=== PATIENT | female | born 1945 | race Caucasian/White ===

== ENCOUNTER 2016-03-23 20:11 | Inpatient (IN) | payer MEDICARE, OTHER ==
[~2016-03-23] VITALS: Ht 147.3 cm; Wt 68.0 kg
[2016-03-23] MEDS: ADVAIR DISKUS 250/50 INH PWD INH SCH (02:13)
[~2016-03-23 20:11] MED LIST changes: -ADV250INH INH; -AMLO10TA2 PO; -CINA30TA PO
[2016-03-23] MEDS ORDERED: FAMOTIDINE 20 MG TAB PO SCH (21:00)
[2016-03-23] MEDS ORDERED: IPRATROPIUM 0.5MG/ALBUTEROL 2.5MG INH SOL UD 3ML (DUONEB)(J7620) As Ordered ONE (21:11)
[2016-03-23 21:22] LABS: BASO % 0.6 % (0.0-1.0); EOS # 0.1 K/mm3 (0.0-0.50); EOS % 1.6 % (0.0-3.0); LARGE UNSTAINED CELL # 0.3 K/mm3 (0.0-0.4); LARGE UNSTAINED CELL % 4.3 % (0.0-4.0); LYMPH # 1.2 K/mm3 (1.5-4.5); LYMPH % 19.1 % (24.0-44.0); MEAN CORPUSCULAR HEMOGLOBIN 33.5 pg (27.0-33.0); MEAN CORPUSCULAR HGB CONC 32.6 g/dl (32.0-36.5); MEAN CORPUSCULAR VOLUME 102.6 fl (80.0-96.0); MONO # 0.4 K/mm3 (0.0-0.8); MONO % 7.1 % (0.0-5.0); NEUTROPHILS # 4.1 K/mm3 (1.8-7.7); NEUTROPHILS % 67.3 % (36.0-66.0); PLATELET COUNT, AUTOMATED 212 k/mm3 (150-450); RED CELL DISTRIBUTION WIDTH 12.3 % (11.5-14.5); WHITE BLOOD COUNT 6.1 K/mm3 (4.0-10.0)
[2016-03-23 21:47] LABS: CALCIUM LEVEL 9.1 MG/DL (8.8-10.2); CREATININE FOR GFR 1.86 MG/DL (0.55-1.02); GLOMERULAR FILTRATION RATE 28.4 (>39); POTASSIUM SERUM 3.7 MEQ/L (3.5-5.1)
--- NOTE | 2016-03-23 22:40 | REPUSA ---
CLINICAL HISTORY: Shortness of breath. TECHNIQUE: CT chest without contrast. COMPARISON: No pertinent prior studies are available at this time. CT CHEST WITHOUT CONTRAST: Lungs: There is a 5 mm nodule in the superior aspect of the right lower lobe on axial image 46. There is a larger conglomerate nodule measuring approximately 10 mm in the right lower lobe on axial image 51, which has No infiltrate, masses or effusion. Heart: Normal size. No significant effusion. Aorta: 4.8 cm aneurysm of the ascending aorta. 2.8 cm aneurysm of the left subclavian artery. Mediastinum and marisol: No significant lymphadenopathy. Bony thorax: No acute findings. S-shaped thoracolumbar scoliosis. Stomach: Moderate hiatal hernia noted. Limited upper abdomen: No acute findings. IMPRESSION: 1. Nodular infiltrates in the superior segment of the right lower lobe. It is uncertain if this repre sents bronchopneumonic infiltrate or soft tissue nodules. Recommend follow-up CT at 3, 9 and 24 month s, to establish two-year stability or resolution. 2. Mild groundglass infiltrates in the right middle and left lower lobes. 3. Aneurysms of the ascending aorta and left subclavian artery. The acuity of these aneurysms is unce rtain without prior studies for comparison, though the presence of peripheral mural calcification sug gests nonacute character. Dissection is not excluded without contrast. 4. Moderate hiatal hernia.
[2016-03-23] MEDS ORDERED: cefTRIAXone SOD 1 GM VIAL (J0696) As Ordered ONE (23:00)
[2016-03-23] MEDS ORDERED: AZITHROMYCIN 250 MG TAB As Ordered ONE (23:01)
--- NOTE | 2016-03-23 23:08 | ECGEPIP ---
Stationary ECG Study [facility] - ED Test Date: 2016-03-23 Pat Name: MARISELA LAFLEUR Department: Room: - Gender: F Furnace Operator: ANGELA : 1945 Requested By: KAYLEEN Lee Order Number: [id number] Reading MD: Virgil Hernandez Measurements Intervals [place] Rate: 76 P: 29 OR: 137 QRS: 7 QRSD: 102 T: 15 QT: 398 QTc: 450 Interpretive Statements SINUS RHYTHM POSSIBLE RIGHT VENTRICULAR CONDUCTION DELAY NO PRIORS Electronically Signed On 03-23-2016 23:07:39 EST by Virgil Hernandez
[2016-03-23] MEDS ORDERED: AMLO10TA2 PO (23:19)
[2016-03-23] MEDS ORDERED: ADV250INH INH (23:19)
[2016-03-23] MEDS ORDERED: CINA30TA PO (23:20)
[2016-03-23] MEDS ORDERED: CYCLOBENZAPRINE 10 MG TAB PO PRN (23:45)
[2016-03-24] MEDS ORDERED: IPRATROPIUM 0.5MG/ALBUTEROL 2.5MG INH SOL UD 3ML (DUONEB)(J7620) NEB PRN (00:30)
--- NOTE | 2016-03-24 01:14 | EDDOCDS ---
Nurse's Notes [facility] Name: Marisela Vicente Age: 70 yrs Sex: Female : 1945 Arrival Date: 03/23/2016 Time: 20:11 Bed 17 Private MD: Eladia Connors E Diagnosis: Other pneumonia, unspecified organism Presentation: 03/23 20:16 Presenting complaint: Patient states: SOB for the past week. Pt reports a productive dsf cough. Pt was at urgent care was sent over here because her X-ray showed fluid on the lungs. Adult Sepsis Screening: The patient does not have new or worsening altered mentation. Patient's respiratory rate is less than 22. Systolic blood pressure is greater than 100. Patient has a qSOFA score of 0- Negative Sepsis Screen. Suicide/Homicide risk assessment- the patient denies having any suicidal and/or homicidal ideations and does not present with any other emotional, behavioral or mental health complaints. 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 Transition of care: Patient was received from [facility]. 20:16 Acuity: RAUL Level 3 dsf 20:16 Method Of Arrival: Wheelchair dsf Triage Assessment: 20:21 General: Appears in no apparent distress, Behavior is appropriate for age. Pain: Denies dsf pain. Respiratory: Onset: The symptoms/episode began/occurred 1 week ago , Reports shortness of breath on exertion since 1 week ago cough that is productive, since 1 week ago. Derm: Skin is pink, warm & dry. Historical: - Allergies: Capoten; FISH PRODUCT DERIVATIVES; PENICILLINS; Vancomycin; - Home Meds: 1. Zantac 150 mg Oral tab 1 tab 2 times per day (Last dose: 03/23/2016 08:00) 2. Synthroid 50 mcg Oral tab 1 tab once daily (Last dose: 03/23/2016 08:00) 3. ropinirole 2 mg oral tab twice a day (Last dose: 03/23/2016 08:00) 4. Lipitor 20 mg Oral tab 1 tab once daily (Last dose: 03/22/2016) 5. citalopram 40 mg Oral tab 1 tab once daily (Last dose: 03/22/2016) 6. Advair Diskus 500-50 mcg/dose Inhl dsdv 1 puff 2 times per day (Last dose: 03/23/2016 08:00) 7. Albuterol Inhl 2 puffs as needed (Last dose: 03/23/2016 19:20) 8. Vicodin 5/325 mg Oral tab as needed (Last dose: Unknown) - PMHx: ESRD; GERD; Hypercholesterolemia; Hypertension; Hypothyroidism; Depression; Fibromyalgia; - PSHx: fistula right arm; PD cath; PD cath removed; Appendectomy; Hysterectomy; - Social history: Smoking status: Patient states former smoker of tobacco. No barriers to communication noted, The patient speaks fluent Bengali, Speaks appropriately for age. - Family history: Not pertinent. - : The pt / caregiver states he / she is not on anticoagulants. Home medication list is obtained from the patient. - Exposure Risk Screening:: None identified. Screenin:16 Screening information is obtained from the patient. Fall risk: No risks identified. lf1 Assistance ADL's: requires no assistance with activities of daily living. Abuse/DV Screen: The patient / caregiver reports he/she is: not in a situation that causes fear, pain or injury. home support is adequate. 03/24 00:22 Nutritional screening: No deficits noted. lf1 Assessment: 03/23 21:15 Adult Sepsis Screening: The patient does not have new or worsening altered mentation. lf1 Patient's respiratory rate is less than 22. Systolic blood pressure is greater than 100. Patient has a qSOFA score of 0- Negative Sepsis Screen. General: Appears in no apparent distress, Behavior is cooperative. Pain: Denies pain. Neurological: Level of Consciousness is awake, alert, Oriented to person, place, time. EENT: No deficits noted. Cardiovascular: Chest pain is denied. Respiratory: Airway is patent Respiratory effort is even, unlabored, Respiratory pattern is regular, Breath sounds are diminished bilaterally. Reports shortness of breath at rest. GI: Denies nausea, vomiting. Derm: Skin is normal. 22:30 General: Appears in no apparent distress, comfortable, Behavior is cooperative, lf1 pleasant. Pain: Denies pain. Neurological: Level of Consciousness is awake, alert, Oriented to person, place, time. Respiratory: Respiratory effort is even, unlabored, Reports shortness of breath cough that is non-productive. GI: Denies nausea, vomiting. 23:18 Adult Sepsis Screening: The patient does not have new or worsening altered mentation. lf1 Patient's respiratory rate is less than 22. Systolic blood pressure is greater than 100. Patient has a qSOFA score of 0- Negative Sepsis Screen. General: Appears in no apparent distress, comfortable, Behavior is cooperative. Pain: Location: buttocks Pain currently is 3 out of 10 on a pain scale. Neurological: Level of Consciousness is awake, alert, obeys commands, Oriented to person, place, time. EENT: No deficits noted. Cardiovascular: Chest pain is denied. Respiratory: Respiratory effort is even, unlabored. GI: Denies nausea, vomiting. Derm: Skin is normal. 03/24 00:22 General: Appears in no apparent distress, comfortable, Behavior is cooperative. Pain: lf1 Location: buttocks Pain currently is 3 out of 10 on a pain scale. Pain: Quality of pain is described as aching. Neurological: Level of Consciousness is awake, alert. Respiratory: Respiratory effort is even, unlabored, Reports shortness of breath cough that is the patient has mild shortness of breath. GI: Denies nausea, vomiting. : No deficits noted. Vital Signs: 03/23 20:13 BP 173 / 77; Pulse 89; Resp 20; Temp 100.4(O); Pulse Ox 95% on R/A; Weight 68.95 kg; elp Height 4 ft. 10 in. (147.32 cm); Pain 0/10; 20:33 BP 146 / 68 (auto/); lf1 20:35 Pulse Ox 91% ; lf1 21:15 Pulse 76 MON; Pulse Ox 98% ; lf1 21:32 Pulse 80 MON; Pulse Ox 98% ; lf1 21:33 BP 152 / 60 (auto/); lf1 22:13 Pulse 88 MON; Pulse Ox 97% ; lf1 22:14 BP 150 / 62 (auto/); lf1 22:34 BP 122 / 59 (auto/); lf1 22:34 Pulse 90 MON; Pulse Ox 97% ; lf1 23:04 BP 108 / 57 (auto/); lf1 23:04 Pulse 84 MON; Pulse Ox 97% ; lf1 23:16 Pulse 84 MON; Pulse Ox 97% on 2 lpm NC; Pain 4/10; lf1 23:34 BP 162 / 92 (auto/); lf1 23:34 Pulse 96 MON; Pulse Ox 96% ; lf1 03/24 00:04 BP 123 / 75 (auto/); lf1 00:04 Pulse 88 MON; Pulse Ox 95% ; lf1 00:22 Pulse 88 MON; Resp 20; Temp 100.0(TE); Pulse Ox 96% ; lf1 03/23 20:13 Body Mass Index 31.77 (68.95 kg, 147.32 cm) elp Vitals: 03/23 20:13 Log In Time: March 23, 2016 at 20:11. elp ED Course: 20:13 Patient visited by Yenifer Chau PCA. elp 20:13 Eladia Connors is Private Physician. elp 20:13 Patient moved to Waiting elp 20:14 Patient visited by Yenifer Chau PCA. elp 20:14 Patient moved to Pre RCE elp 20:17 Triage Initiated dsf 20:31 Kayleen Sanchez DO is Attending Physician. mm11 20:31 Patient visited by Kayleen Sanchez DO. mm11 20:31 Patient moved to 17 3 20:35 The patient / caregiver is instructed regarding the plan of care and ED course. lf1 20:35 Inserted saline lock: 20 gauge in left antecubital area and blood collected. The lf1 patient tolerated the procedure well. Labs drawn. (by ED staff). Sent per order to lab. Labs/Blood culture drawn. 20:39 Pt greeted and oriented to ED. Patient advised of names of staff involved in care, ml location of call [place], wait times and NPO status. Accompanied by Family Member, Patient has correct armband on for positive identification. Placed in gown. Bed in low position. Call light in reach. Side rails up X2. gambling monitor on. Pulse ox on. NIBP on. 20:40 Patient visited by [place] PCA. ml 20:46 Patient visited by Kayleen Sanchez DO. mm11 21:05 Patient visited by Ritesh Goodson PCA. kb5 21:05 EKG done. (by ED staff). Reviewed by Kayleen Sanchez DO. kb5 21:14 Troponin Sent. lf1 21:14 Cardiac Injury Profile Sent. lf1 21:14 CBC with Diff Sent. lf1 21:14 Basic Metabolic Profile Sent. lf1 21:15 B-Type Natiuretic Peptide Sent. lf1 21:15 -Blood Culture Sent. lf1 21:15 BLOOD CULTURES Sent. lf1 21:17 Patient visited by Janey Alan,BAILEY. lf1 22:02 Patient visited by Ritesh Goodson PCA. kb5 22:48 [facility] Payment Agreement was scanned into [employer] and attached to record. ks16 22:56 Patient visited by Kayleen Sanchez DO. mm11 22:59 CT Chest Without Contrast Returned. EDMS 23:04 Christine Bolton is Hospitalizing Provider. mm11 23:16 Patient visited by Janey Alan,RN. lf1 23:19 Patient visited by Janey Alan,BAILEY. lf1 23:42 EKG-ADULT Returned. EDMS 03/24 00:26 Patient visited by Janey Alan RN. lf1 Administered Medications: 03/23 21:15 Drug: Albuterol-Ipratropium 1 neb [ipratropium-albuterol 0.5 mg-3 mg(2.5 mg base)/3 mL lf2 nebulization soln (1 neb)] Route: Nebulizer; 21:20 Drug: Albuterol-Ipratropium 1 neb [ipratropium-albuterol 0.5 mg-3 mg(2.5 mg base)/3 mL lf2 nebulization soln (1 neb)] Route: Nebulizer; 21:25 Drug: Albuterol-Ipratropium 1 neb [ipratropium-albuterol 0.5 mg-3 mg(2.5 mg base)/3 mL lf2 nebulization soln (1 neb)] Route: Nebulizer; 23:11 Drug: cefTRIAXone 1 grams [ceftriaxone 1 gram solution for injection] Route: IVPB; lf1 Infused Over: 30 mins; Site: left antecubital; 23:45 Follow up: IV Status: Completed infusion; IV Intake: 50ml lf1 23:11 Drug: azithromycin 500 mg [azithromycin 250 mg tablet (2 tabs)] Route: PO; lf1 Intake: 23:45 IV: 50.00ml; Total: 50.00ml. lf1 RT: 21:15 Initial Med Neb Given as ordered Patient was instructed and evaluated on procedure lf2 Patient tolerated procedure well without adverse effect. O2 via nasal cannula \T\ 2L/min. Respiratory: Respiratory effort is even, unlabored, relaxed, Respiratory pattern is regular symmetrical, trachea is midline Breath sounds are coarse bilaterally. Breath sounds are diminished bilaterally. Reports shortness of breath on exertion cough that is productive. 21:22 Subsequent Med Neb Given as ordered Patient tolerated procedure well without adverse lf2 effect. Respiratory: Breath sounds are coarse bilaterally. Breath sounds are diminished bilaterally. 21:25 Subsequent Med Neb Given as ordered Patient tolerated procedure well without adverse lf2 effect. Respiratory: Breath sounds are coarse bilaterally. Order Results: Lab Order: B-Type Natiuretic Peptide; SPEC'M 03/23/16 21:05 Test: BRAIN NATRIURETIC PEPTIDE; Value: 171; Range: <100; Abnormal: Above high normal; Units: PG/ML; Status: F Lab Order: Basic Metabolic Profile; SPEC'M 03/23/16 21:05 Test: GLUCOSE, FASTING; Value: 129; Range: 83-110; Abnormal: Above high normal; Units: MG/DL; Status: F Test: BLOOD UREA NITROGEN; Value: 16; Range: 7-18; Units: MG/DL; Status: F Test: CREATININE FOR GFR; Value: 1.86; Range: 0.55-1.02; Abnormal: Above high normal; Units: MG/DL; Status: F Test: GLOMERULAR FILTRATION RATE; Value: 28.4; Range: >39; Abnormal: Below low normal; Status: F Test: SODIUM LEVEL; Value: 139; Range: 136-145; Units: MEQ/L; Status: F Test: POTASSIUM SERUM; Value: 3.7; Range: 3.5-5.1; Units: MEQ/L; Status: F Test: CHLORIDE LEVEL; Value: 100; Range: 98-107; Units: MEQ/L; Status: F Test: CARBON DIOXIDE LEVEL; Value: 32; Range: 21-32; Units: MEQ/L; Status: F Test: ANION GAP; Value: 7; Range: 8-16; Abnormal: Below low normal; Units: MEQ/L; Status: F Test: CALCIUM LEVEL; Value: 9.1; Range: 8.8-10.2; Units: MG/DL; Status: F Test Note: ; Units are mL/min/1.73 m2 Chronic Kidney Disease Staging per NKF: Stage I & II GFR >=60 Normal to Mildly Decreased Stage III GFR 30-59 Moderately Decreased Stage IV GFR 15-29 Severely Decreased Stage V GFR <15 Very Little GFR Left ESRD GFR <15 on VACUUM PAN TENDER Lab Order: CBC with Diff; SPEC'M 03/23/16 21:05 Test: WHITE BLOOD COUNT; Value: 6.1; Range: 4.0-10.0; Units: K/mm3; Status: F Test: RED BLOOD COUNT; Value: 3.83; Range: 4.00-5.40; Abnormal: Below low normal; Units: M/mm3; Status: F Test: HEMOGLOBIN; Value: 12.8; Range: 12.0-16.0; Units: g/dl; Status: F Test: HEMATOCRIT; Value: 39.3; Range: 36.0-47.0; Units: %; Status: F Test: MEAN CORPUSCULAR VOLUME; Value: 102.6; Range: 80.0-96.0; Abnormal: Above high normal; Units: fl; Status: F Test: MEAN CORPUSCULAR HEMOGLOBIN; Value: 33.5; Range: 27.0-33.0; Abnormal: Above high normal; Units: pg; Status: F Test: MEAN CORPUSCULAR HGB CONC; Value: 32.6; Range: 32.0-36.5; Units: g/dl; Status: F Test: RED CELL DISTRIBUTION WIDTH; Value: 12.3; Range: 11.5-14.5; Units: %; Status: F Test: PLATELET COUNT, AUTOMATED; Value: 212; Range: 150-450; Units: k/mm3; Status: F Test: NEUTROPHILS %; Value: 67.3; Range: 36.0-66.0; Abnormal: Above high normal; Units: %; Status: F Test: LYMPH %; Value: 19.1; Range: 24.0-44.0; Abnormal: Below low normal; Units: %; Status: F Test: MONO %; Value: 7.1; Range: 0.0-5.0; Abnormal: Above high normal; Units: %; Status: F Test: EOS %; Value: 1.6; Range: 0.0-3.0; Units: %; Status: F Test: BASO %; Value: 0.6; Range: 0.0-1.0; Units: %; Status: F Test: LARGE UNSTAINED CELL %; Value: 4.3; Range: 0.0-4.0; Abnormal: Above high normal; Units: %; Status: F Test: NEUTROPHILS #; Value: 4.1; Range: 1.8-7.7; Units: K/mm3; Status: F Test: LYMPH #; Value: 1.2; Range: 1.5-4.5; Abnormal: Below low normal; Units: K/mm3; Status: F Test: MONO #; Value: 0.4; Range: 0.0-0.8; Units: K/mm3; Status: F Test: EOS #; Value: 0.1; Range: 0.0-0.50; Units: K/mm3; Status: F Test: BASO #; Value: 0.0; Range: 0.0-0.2; Units: K/mm3; Status: F Test: LARGE UNSTAINED CELL #; Value: 0.3; Range: 0.0-0.4; Units: K/mm3; Status: F Lab Order: Cardiac Injury Profile; SPEC'M 03/23/16 21:05 Test: CPK CREATINE PHOSPHOKINASE; Value: 208; Range: 26-192; Abnormal: Above high normal; Units: U/L; Status: F Test: CK-MB VALUE MASS; Value: 3.3; Range: 0.0-3.6; Units: NG/ML; Status: F Test: MB/CK RELATIVE INDEX; Value: 1.58; Range: < OR =4; Status: F Test Note: ; DIAGNOSIS CRITERIA MMB ng/ml Relative Index (RI) NON-AMI < or = 5 N/A PEREZ ZONE > 5 < or = 4 AMI > 5 > 4 Lab Order: Troponin; SPEC'M 03/23/16 21:05 Test: TROPONIN I; Value: 0.04; Range: < 0.10; Units: NG/ML; Status: F Test Note: ; Troponin I Reference Interval for [employer] LOCI: 99th Percentile= 0.00-0.045 ng/ml Risk Stratification: <= 0.10 ng/ml Decreased Risk for Adverse Clinical Events. 0.10-1.50 ng/ml Increased Risk for Adverse Clinical Events. Evaluation of additional criterion and/or repeat testing in 2-6 hours is suggested to rule out myocardial damage. >= 1.50 ng/ml Indicative of Myocardial Injury. Lab Order: -Influenza A&B Rapid Antigen - Nose; SPEC'M 03/23/16 21:07 Test: INFLUENZA A RAPID SCR by ICA; Value: INFLUENZA A RESULTS NEGATIVE; Status: F Test: INFLUENZA A RAPID SCR by ICA; Value: Comments:; Status: F Test: INFLUENZA B RAPID SCR by ICA; Value: INFLUENZA B RESULTS NEGATIVE; Status: F Test Note: ; The Influenza test is a direct rapid immunoassay for the qualitative detection of Influenza viral antigen. Cell culture (Viral Culture) testing should be considered to confirm NEGATIVE results and to assist in detecting other viruses that can provide similar clinical symptoms. Please contact the lab within 24 hours ([phone]) if confirmatory testing is desired. Radiology Order: EKG-ADULT Test: EKG-ADULT REASON FOR EXAMINATION: Shortness of Breath; Stationary ECG Study; [facility] - ED; ; Test Date: 2016-03-23; Pat Name: MARISELATANYA VICENTE Department:; Room: -; Gender: F Sealant Mixer: ANGELA; : 1945 Requested By: KAYLEEN Lee; Order Number: [id number] Reading MD: Virgil Hernandez; Measurements; Intervals [place]; Rate: 76 P: 29; VT: 137 QRS: 7; QRSD: 102 T: 15; QT: 398; QTc: 450; Interpretive Statements; SINUS RHYTHM; POSSIBLE RIGHT VENTRICULAR CONDUCTION DELAY; NO PRIORS; Electronically Signed On 03-23-2016 23:07:39 EST by Virgil Hernandez; Radiology Order: CT Chest Without Contrast Test: CT Chest Without Contrast REASON FOR EXAMINATION: Shortness of Breath; ; CLINICAL HISTORY: Shortness of breath.; ; TECHNIQUE: CT chest without contrast.; ; COMPARISON: No pertinent prior studies are available at this time.; ; CT CHEST WITHOUT CONTRAST:; Lungs: There is a 5 mm nodule in the superior aspect of the right lower lobe on axial image 46. There; is a larger conglomerate nodule measuring approximately 10 mm in the right lower lobe on axial image; 51, which has No infiltrate, masses or effusion.; Heart: Normal size. No significant effusion.; Aorta: 4.8 cm aneurysm of the ascending aorta. 2.8 cm aneurysm of the left subclavian artery.; Mediastinum and marisol: No significant lymphadenopathy.; Bony thorax: No acute findings. S-shaped thoracolumbar scoliosis.; Stomach: Moderate hiatal hernia noted.; Limited upper abdomen: No acute findings.; IMPRESSION:; 1. Nodular infiltrates in the superior segment of the right lower lobe. It is uncertain if this repre; sents bronchopneumonic infiltrate or soft tissue nodules. Recommend follow-up CT at 3, 9 and 24 month; s, to establish two-year stability or resolution.; ; 2. Mild groundglass infiltrates in the right middle and left lower lobes.; ; 3. Aneurysms of the ascending aorta and left subclavian artery. The acuity of these aneurysms is unce; rtain without prior studies for comparison, though the presence of peripheral mural calcification sug; gests nonacute character. Dissection is not excluded without contrast.; ; 4. Moderate hiatal hernia.; ; Outcome: 23:05 Decision to Hospitalize by Provider. mm11 03/24 01:12 Patient left the ED. al Signatures: Dispatcher [employer] EDMS Minnie Guido RN RN jan Bancroft, Kristopher, MARINE PILOT MARINE PILOT kb5 Janey Alan,RN RN lf1 Kayleen Sanchez, DO mm11 [place] Santiago, MARINE PILOT MARINE PILOT Victoria BlancoRN RN Yenifer Whelan, MARINE PILOT MARINE PILOT Orlando Aguiar RN RN [id number] Irma Chaudhari, Reg Reg ks16 Janey Bustillos,RT RT lf2 MTDD
--- NOTE | 2016-03-24 01:14 | EDDOCDS ---
Physician Documentation [facility] Name: Sandra Vicente Age: 70 yrs Sex: Female : 1945 Arrival Date: 03/23/2016 Time: 20:11 Bed 17 Private MD: Eladia Connors E Disposition: 03/23/16 23:05 Hospitalization ordered by Christine Bolton for Inpatient Admission. Preliminary diagnosis is Other pneumonia, unspecified organism. - Bed requested for 4 [place]. - Status is Inpatient Admission. al - Condition is Stable. - Problem is an acute exacerbation. - Symptoms have improved. Historical: - Allergies: Capoten; FISH PRODUCT DERIVATIVES; PENICILLINS; Vancomycin; - Home Meds: 1. Zantac 150 mg Oral tab 1 tab 2 times per day (Last dose: 03/23/2016 08:00) 2. Synthroid 50 mcg Oral tab 1 tab once daily (Last dose: 03/23/2016 08:00) 3. ropinirole 2 mg oral tab twice a day (Last dose: 03/23/2016 08:00) 4. Lipitor 20 mg Oral tab 1 tab once daily (Last dose: 03/22/2016) 5. citalopram 40 mg Oral tab 1 tab once daily (Last dose: 03/22/2016) 6. Advair Diskus 500-50 mcg/dose Inhl dsdv 1 puff 2 times per day (Last dose: 03/23/2016 08:00) 7. Albuterol Inhl 2 puffs as needed (Last dose: 03/23/2016 19:20) 8. Vicodin 5/325 mg Oral tab as needed (Last dose: Unknown) - PMHx: ESRD; GERD; Hypercholesterolemia; Hypertension; Hypothyroidism; Depression; Fibromyalgia; - PSHx: fistula right arm; PD cath; PD cath removed; Appendectomy; Hysterectomy; - Social history: Smoking status: Patient states former smoker of tobacco. No barriers to communication noted, The patient speaks fluent Kazakh, Speaks appropriately for age. - Family history: Not pertinent. - : The pt / caregiver states he / she is not on anticoagulants. Home medication list is obtained from the patient. - Exposure Risk Screening:: None identified. Vital Signs: 03/23 20:13 BP 173 / 77; Pulse 89; Resp 20; Temp 100.4(O); Pulse Ox 95% on R/A; Weight 68.95 kg / elp 152.01 lbs; Height 4 ft. 10 in. (147.32 cm); Pain 0/10; 20:33 BP 146 / 68 (auto/); lf1 20:35 Pulse Ox 91% ; lf1 21:15 Pulse 76 MON; Pulse Ox 98% ; lf1 21:32 Pulse 80 MON; Pulse Ox 98% ; lf1 21:33 BP 152 / 60 (auto/); lf1 22:13 Pulse 88 MON; Pulse Ox 97% ; lf1 22:14 BP 150 / 62 (auto/); lf1 22:34 BP 122 / 59 (auto/); lf1 22:34 Pulse 90 MON; Pulse Ox 97% ; lf1 23:04 BP 108 / 57 (auto/); lf1 23:04 Pulse 84 MON; Pulse Ox 97% ; lf1 23:16 Pulse 84 MON; Pulse Ox 97% on 2 lpm NC; Pain 4/10; lf1 23:34 BP 162 / 92 (auto/); lf1 23:34 Pulse 96 MON; Pulse Ox 96% ; lf1 03/24 00:04 BP 123 / 75 (auto/); lf1 00:04 Pulse 88 MON; Pulse Ox 95% ; lf1 00:22 Pulse 88 MON; Resp 20; Temp 100.0(TE); Pulse Ox 96% ; lf1 03/23 20:13 Body Mass Index 31.77 (68.95 kg, 147.32 cm) elp MDM: 03/23 20:47 -Blood Culture (Adults Only), peripheral from different site, or from device/port/PICC mm11 etc. if present ordered. 20:47 Healthcare Liaison/Pulse Ox/q 15 min VS ordered. mm11 20:47 IV Saline Lock ordered. mm11 20:47 Oxygen at 4L/Min NC or Home dosage ordered. mm11 20:47 Rhythm Strip to chart ordered. mm11 20:47 Albuterol-Ipratropium 1 neb Nebulizer every 20 minutes x3 ordered. mm11 20:47 Call Respiratory ordered. mm11 20:48 B-Type Natiuretic Peptide Ordered. EDMS 20:48 Basic Metabolic Profile Ordered. EDMS 20:48 CBC with Diff Ordered. EDMS 20:48 Cardiac Injury Profile Ordered. EDMS 20:48 Troponin Ordered. EDMS 20:48 -Blood Culture Ordered. EDMS 20:48 -Influenza A&B Rapid Antigen - Nose Ordered. EDMS 20:48 ECG WITH READING ER PHYS+CARDIAG ordered. EDMS 20:48 CT Chest Without Contrast Ordered. EDMS 21:06 Call Respiratory complete. cp1 21:11 -Blood Culture (Adults Only), peripheral from different site, or from device/port/PICC ml3 etc. if present complete. 21:12 BLOOD CULTURES Ordered. EDMS 22:41 B-Type Natiuretic Peptide Reviewed. mm11 22:41 Basic Metabolic Profile Reviewed. mm11 22:41 CBC with Diff Reviewed. mm11 22:41 Cardiac Injury Profile Reviewed. mm11 22:41 Troponin Reviewed. mm11 22:41 -Influenza A&B Rapid Antigen - Nose Reviewed. mm11 22:48 Financial registration complete. ks16 22:48 [facility] Payment Agreement was scanned into [employer] and attached to record. ks16 22:57 cefTRIAXone 1 grams IVPB once over 30 mins; dilute in 50mL of NS or D5W ordered. mm11 22:57 azithromycin 500 mg PO once ordered. mm11 22:59 BED REQUEST+ADM ordered. EDMS 23:03 CT Chest Without Contrast Reviewed. mm11 23:28 PHYSICAL THERAPY EVAL & TREAT ordered. EDMS 23:29 Admission / Observation Status ordered. EDMS 23:30 COMPLETE BLOOD COUNT Ordered. EDMS 23:30 BASIC METABOLIC PROFILE Ordered. EDMS 23:30 C REACTIVE PROTEIN QUANTITATIV Ordered. EDMS 23:30 SPUTUM CULTURE AND GRAM STAIN Ordered. EDMS 01/08 00:16 LEGIONELLA ANTIGEN URINE Ordered. EDMS 00:16 URINE STREP PNEUMONIAE ANTIGEN Ordered. EDMS 00:16 INFLUENZA A&B RAPID ANTIGEN Ordered. EDMS 00:45 CARDIAC MARKER PANEL Ordered. EDMS 00:45 CARDIAC MARKER PANEL Ordered. EDMS Administered Medications: 03/23 21:15 Drug: Albuterol-Ipratropium 1 neb [ipratropium-albuterol 0.5 mg-3 mg(2.5 mg base)/3 mL lf2 nebulization soln (1 neb)] Route: Nebulizer; 21:20 Drug: Albuterol-Ipratropium 1 neb [ipratropium-albuterol 0.5 mg-3 mg(2.5 mg base)/3 mL lf2 nebulization soln (1 neb)] Route: Nebulizer; 21:25 Drug: Albuterol-Ipratropium 1 neb [ipratropium-albuterol 0.5 mg-3 mg(2.5 mg base)/3 mL lf2 nebulization soln (1 neb)] Route: Nebulizer; 23:11 Drug: cefTRIAXone 1 grams [ceftriaxone 1 gram solution for injection] Route: IVPB; lf1 Infused Over: 30 mins; Site: left antecubital; 23:45 Follow up: IV Status: Completed infusion; IV Intake: 50ml lf1 23:11 Drug: azithromycin 500 mg [azithromycin 250 mg tablet (2 tabs)] Route: PO; lf1 Signatures: Dispatcher [employer] EDMS Minnie Guido RN RN George Pagan, Marketing Executive Unit ml3 Janey Alan RN RN lf1 Anjel Sanchez, DO mm11 Rachelle Stringer,OUTSIDE SALES EXECUTIVE OUTSIDE SALES EXECUTIVE cp1 Victoria Beebe RN RN dsf Irma Chaudhari, Reg Reg ks16 Janey Bustillos RT lf2 The chart was reviewed and I authenticate all verbal orders and agree with the evaluation and treatment provided.Attachments: 22:48 [facility] Payment Agreement [email or web address] MTDD
[2016-03-24 01:15] VITALS: BP 149/66
[2016-03-24] MEDS: CINACALCET 30 MG TAB (SENSIPAR) PO SCH ×2 (01:39→21:27)
[2016-03-24] MEDS: CitaloPRAM (CeleXA) 20 MG TAB PO SCH ×2 (01:40→21:27)
[2016-03-24] MEDS: rOPINIRole 1MG TAB PO SCH ×3 (01:40→21:27)
[2016-03-24] MEDS: ATORVASTATIN 20 MG TAB PO SCH ×2 (01:40→21:27)
[2016-03-24] MEDS: PERCOCET 5MG/325MG TAB PO PRN ×2 (01:41→06:06)
[2016-03-24] MEDS: IPRATROPIUM 0.5MG/ALBUTEROL 2.5MG INH SOL UD 3ML (DUONEB)(J7620) NEB SCH ×4 (02:14→20:00)
[2016-03-24] MEDS: PRAMIPEXOLE (MIRAPEX) 0.125 MG TAB PO SCH ×2 (02:23→21:27)
[2016-03-24] MEDS: FAMOTIDINE 20 MG TAB PO SCH ×3 (03:00→21:27)
--- NOTE | 2016-03-24 03:34 | HPE ---
DATE OF ADMISSION: 03/23/2016 PRIMARY CARE PHYSICIAN: Eladia Connors DO. MINUTE CLERK: Dr. Castorena and Dr. Restrepo. CHIEF COMPLAINT: Fatigue, productive cough and chills. HISTORY OF PRESENT ILLNESS: Ms. Vicente is a 70-year-old female with multiple past medical history who presented to the emergency room (ER) due to experiencing shortness of breath, as well as fatigue, chills, and productive cough. Patient expressed that the symptoms started about a week ago. Patient expressed that one of her great-grandchildren was having flu-like symptoms. Patient noticed for the past week that she became more tired than usual and she started having cough and it became more productive with yellowish sputum. Patient denies having fever; however, patient says that she has been experiencing chills. However, patient did not report night sweats. Patient denies acute vision or hearing changes. Patient also denies diarrhea. Patient also expressed that she is developing shortness of breath and shortness of breath happened mostly with activities and it became increased for the past week. Patient also expressed that her appetite has decreased for the past week. At ER, patient received breathing treatment, as well as one dose of azithromycin and ceftriaxone and the hospitalists were called to admit the patient. PAST MEDICAL HISTORY: 1. End-stage renal disease on hemodialysis. Dialysis catheter was placed at [facility] in [place]. Patient receives dialysis on Tuesdays, , and Saturdays. 2. Dyslipidemia. 3. Depression. 4. Hypertension. 5. Gastroesophageal reflux disease (GERD). 6. Restless legs syndrome. 7. Fibromyalgia. 8. Chronic obstructive pulmonary disease (COPD), not on home oxygen. 9. Remote history of nicotine abuse. 10. Hypothyroidism. 11. Aortic aneurysm, following with Dr. Galeana. PAST SURGICAL HISTORY: 1. Peritoneal dialysis catheter placed in [facility] in [place]. 2. Fistula right arm. 3. PD catheter removed. 4. Appendectomy. 5. Hysterectomy. SOCIAL HISTORY: Patient lives alone. Patient's grandchildren are providing help. Patient denies a history of alcohol usage. Patient states that about 40 years ago, patient was a smoker from age [age], about a pack a day. Patient denies a history of illicit drug use. Patient has one cat. Patient has not traveled outside of [place]. Patient had one daughter who due to heart failure. FAMILY HISTORY: Patient has one brother and one sister. Patient's sister has bladder cancer. Patient's father had due to leukemia. Patient's mother due to lung cancer. REVIEW OF SYSTEMS: GENERAL: Patient denies night sweats; however, patient expressed that she has been experiencing chills. Patient denies having fever. HEENT: Patient denies acute vision or hearing changes. Patient denies problem with chewing food. Patient denies sinusitis. NECK: Patient denies lumps, bumps or decreased range of motion of her neck. HEART: Patient denies chest pain, palpitations or racing or skipping heartbeat. LUNGS: Patient expressed that she has been experiencing dyspnea with activities. Patient also has cough with sputum production, yellowish color. ABDOMEN: Patient denies abdominal pain, nausea, vomiting, diarrhea, constipation, melena, hematochezia, or hemoptysis. NEUROLOGIC: Patient denies a history of transient ischemic attack (TIA), CVA, or seizure type activities. PHYSICAL EXAMINATION: VITAL SIGNS: Blood pressure 173/77, pulse 89, respiratory rate 20, temperature 100.4, pulse oximetry 99% on room air. Weight 68.95 kg, height 147.32 cm, body mass index (BMI) 31.77. GENERAL APPEARANCE: Patient was lying in bed in no acute distress. The patient was awake, alert, and oriented to time, place and person. HEENT: Normocephalic, atraumatic. Pupils are equal. Oral mucosa is moist. NECK: Soft, supple. HEART: Regular rate and rhythm. Normal S1, S2. ABDOMEN: Soft, nontender, positive bowel sounds in all quadrants. Obese. LUNGS: Patient has scattered rhonchi at the base of the lung. Good air movement. NEUROLOGICAL: Cranial nerves II-XII intact. No focal deficiencies. EXTREMITIES: No lower extremity edema, +2 pulses in both lower extremities. LABORATORY DATA: White blood cells 6.1, red blood cells 3.83, hemoglobin 12.8, hematocrit 39.3, MCV 102.6, MCH 33.5, MCHC 32.6, RDW 12.3, platelet count 212. Neutrophil percentage 67.3, lymphocyte percentage 19.1, monocyte percentage 7.1, eosinophil percentage 1.6, basophil percentage 0.6, leukocyte percentage 4.3. Sodium 139, potassium 3.7, chloride 100, carbon dioxide 32, anion gap 7, BUN 16, creatinine 1.86, glomerular filtration rate 28.4, glucose 129, calcium 9.1, total creatinine kinase 208, CK-MB 3.3, CK-MB relative index 1.58, troponin 0.04, BNP 171. CT chest without contrast shows nodular infiltration in the superior segment of the right lower lobe. It is uncertain if it represents bronchopneumonic infiltration or soft tissue nodules. Medial ground-glass infiltration in the right middle and the left lower lobe. Also it shows aneurysm of the ascending aorta and the left subclavian artery. The acuity of this aneurysm is uncertain without prior studies of comparison, though the presence of peripheral mural calcifications suggestive of nonacute character. It also shows moderate hiatal hernia. ASSESSMENT AND PLAN: 1. Community-acquired pneumonia. CT of the chest raised the possibility for right lower lobe bronchopneumonic infiltration; therefore, we have started the patient on azithromycin and ceftriaxone. Also, we have ordered sputum culture and gram stain, as well as influenza A and B rapid antigen, and urine Streptococcus pneumoniae antigen and Legionella and result is pending at this time. The patient did not have leukocytosis; however, we have ordered C-reactive protein. Result is pending at this time. 2. End-stage renal disease. Patient receives dialysis on Tuesdays, and Saturdays. Patient had dialysis today. At this time, we will continue to monitor patient for any abnormal symptoms. Also, we will continue patient on Sensipar 30 mg by mouth nightly. 3. Nodular infiltration. Patient's CT, which was done today, indicates of the nodular infiltration in the superior segment of the right lower lobe, which raised the possibility for soft tissue nodules versus bronchopneumonic infiltrate. Radiologist recommended CT at 3, 9 and 24 months for followup to establish 2-year stability or resolution. 4. Aneurysm. The CT, which was done today, indicative of the aneurysm of the ascending aorta and the left subclavian artery. The acuity of the aneurysm is uncertain since we do not have the prior studies for comparison, although the presence of the peripheral mural calcifications suggest nonacute character. This may require followup. The patient is following with Dr. Galeana. 5. Hiatal hernia. Will continue patient on Pepcid 1 mg by mouth twice a day. At this time, patient is stable. 6. Dyslipidemia. We will continue patient on Lipitor 20 mg by mouth nightly. 7. Depression. We will continue patient on Celexa 40 mg by mouth daily. 8. Gastroesophageal reflux disease (GERD). Patient is on Pepcid 1 mg by mouth twice a day. 9. Deep venous thrombosis (DVT) prophylaxis. Patient is on heparin 5000 units subcutaneously nightly. 10. Hypothyroidism. We will continue patient on Synthroid 0.05 mg by mouth daily. 11. Chronic obstructive pulmonary disease (COPD). Patient is on breathing treatment, as well as patient is on nasal cannula for more than 90% saturation. 12. Fibromyalgia. The patient is on Celexa. 13. Restless legs syndrome. Patient is on Requip. My preceptor for this patient encounter was Dr. Christine Bolton. The preceptor was physically present in the building during the encounter and was fully available as needed. All aspects of the patient interview, examination, medical decision making process, and medical care plan development were reviewed and approved by the preceptor. The preceptor is aware and concurs with the plan as stated in the body of this note and will attest to such by his/her co-signature.
[2016-03-24 06:00] VITALS: BP 129/60
[2016-03-24] MEDS: LEVOTHYROXINE 0.05 MG TAB (50 MCG) PO SCH (06:01)
[2016-03-24] MEDS: HEPARIN SOD (PORCINE) 5000 UNITS/ML VIAL SC SCH ×3 (06:01→21:27)
[2016-03-24 06:40] LABS: MEAN CORPUSCULAR HEMOGLOBIN 33.7 pg (27.0-33.0); MEAN CORPUSCULAR VOLUME 102.1 fl (80.0-96.0); RED CELL DISTRIBUTION WIDTH 12.3 % (11.5-14.5); WHITE BLOOD COUNT 8.9 K/mm3 (4.0-10.0)
[2016-03-24 07:01] LABS: CALCIUM LEVEL 8.9 MG/DL (8.8-10.2); CREATININE FOR GFR 2.36 MG/DL (0.55-1.02); GLOMERULAR FILTRATION RATE 21.6 (>39); POTASSIUM SERUM 3.7 MEQ/L (3.5-5.1)
[2016-03-24] MEDS: ADVAIR DISKUS 250/50 INH PWD INH SCH ×2 (08:10→20:45)
[2016-03-24] MEDS: AZITHROMYCIN 250 MG TAB PO SCH (09:23)
[2016-03-24] MEDS: amLODIPine 10 MG TAB PO SCH (09:24)
[2016-03-24] MEDS: cefTRIAXone SOD 2 GM in D5W MINI-BAG PLUS 50 ML IV SCH (13:30)
[2016-03-24 14:00] VITALS: BP 134/63
[2016-03-24] MEDS: ACETAMINOPHEN TAB 650MG DOSE (2X325MG) PO PRN (16:29)
[2016-03-24 22:00] VITALS: BP 111/54
[2016-03-24] MEDS ORDERED: AZITHROMYCIN 500 MG, VIAL MATE ADAPTER 1 EACH in D5W 250 ML IV SCH (23:00)
[2016-03-25] MEDS: cefTRIAXone SOD 2 GM in D5W MINI-BAG PLUS 50 ML IV SCH (00:17)
[2016-03-25] MEDS ORDERED: ONDANSETRON 4MG/2ML VIAL (J2405) IV PRN (01:30)
[2016-03-25] MEDS: IPRATROPIUM 0.5MG/ALBUTEROL 2.5MG INH SOL UD 3ML (DUONEB)(J7620) NEB SCH ×4 (01:50→19:48)
[2016-03-25] MEDS: PERCOCET 5MG/325MG TAB PO PRN ×2 (02:43→11:39)
[2016-03-25] MEDS: LEVOTHYROXINE 0.05 MG TAB (50 MCG) PO SCH (05:32)
[2016-03-25] MEDS: HEPARIN SOD (PORCINE) 5000 UNITS/ML VIAL SC SCH ×3 (05:32→22:15)
[2016-03-25 06:00] VITALS: BP 110/53
[2016-03-25 07:19] LABS: MEAN CORPUSCULAR HEMOGLOBIN 33.8 pg (27.0-33.0); MEAN CORPUSCULAR HGB CONC 33.2 g/dl (32.0-36.5); MEAN CORPUSCULAR VOLUME 101.8 fl (80.0-96.0); RED CELL DISTRIBUTION WIDTH 12.2 % (11.5-14.5); WHITE BLOOD COUNT 9.2 K/mm3 (4.0-10.0)
[2016-03-25] MEDS: ADVAIR DISKUS 250/50 INH PWD INH SCH ×2 (07:44→19:49)
[2016-03-25 07:55] LABS: CALCIUM LEVEL 8.3 MG/DL (8.8-10.2); CREATININE FOR GFR 3.06 MG/DL (0.55-1.02); POTASSIUM SERUM 3.4 MEQ/L (3.5-5.1)
[2016-03-25] MEDS ORDERED: PREVNAR 13 VACCINE SYRINGE (CPT CODE:90670) IM ONE (09:00)
[2016-03-25] MEDS: amLODIPine 10 MG TAB PO SCH (09:50)
[2016-03-25] MEDS: FAMOTIDINE 20 MG TAB PO SCH ×2 (10:04→22:16)
[2016-03-25] MEDS: AZITHROMYCIN 250 MG TAB PO SCH (10:04)
[2016-03-25] MEDS: rOPINIRole 1MG TAB PO SCH ×2 (10:05→22:16)
[2016-03-25] MEDS ORDERED: POTASSIUM CHLORIDE 10 MEQ SR TABLET PO ONE (10:30)
[2016-03-25] MEDS ORDERED: VANCOMYCIN HCL 1,000 MG, VIAL MATE ADAPTER 1 EACH in D5W 250 ML IV SCH (11:45)
--- NOTE | 2016-03-25 11:52 | IPNPDOC ---
Text Note Date of Service The patient was seen on 03/25/16 at 11:30. NOTE Subjective: Patient is a 70 year old female with a PMHx of ESRD on HD (TTS), HTN, COPD, Hypothyroidism, Ascending AA, DLP, RLS, Fibromyalgia and Depression who presented to the ED with complaints of shortness of breath and productive cough. She had associated fatigue and chills. She was admitted for CAP and placed on PCU. She was seen and examined at the bedside. She notes that she has still been coughing and notes a mild sore throat today. Objective: Vitals (see below) General: Lying in bed, no acute distress, comfortable, AAOx3 HEENT: NC, AT CVS: RRR, +S1S2 Lungs: Fair air entry b/l, bilateral rhonchi at lower lung feilds Abdomen: Soft, ND, NT, +BSx4 Extremities: no edema, no calf tenderness Assessment and plan: 1. Dyspnea - likely 2/2 acute hypoxic respiratory failure - 2/2 community acquire pneumonia - Presented with SOB, productive cough, subjective fevers and chills - Physical revels right sided rhonchi - No leukocytosis, but an elevated CRP - No elevation in lactic acid - Blood culture 03/23: 1 of 2 positive for Gram positive cocci in clusters - Influenza negative, Sputum cx 03/25: Many gram positive cocci in chains - CT chest 03/23: nodular infiltrate in the superior segment of the RLL, ground glass infiltrate at R middle / left lower lobes - requires supplemental oxygen at this time at 2 liters nasal cannula - c/w Ceftriaxone and Azithromycin (Day #2) 2. Gram positive cocci in clusters - likely contaminent - Blood culture 03/23: 1 of 2 positive for Gram positive cocci in clusters - Repeat blood cultures today - Will start Vancomycin until repeat cultures return 3. ESRD on HD (TTS) - Dr. Castorena / Dr. Restrepo (Nephrology) following - appreciate their input 4. Ascending aortic aneurysm - no prior CT scans available for comparison - follows with Dr. Galeana as an outpatient 5. COPD - no evidence of exacerbation at this time - c/w duoneb PRN, Advair 6. Hypothyroidism - c/w Synthroid 7. DLP - c/w atorvastatin 8. RLS - c/w ropinarole 9. Fibromyalgia 10. Depression - c/w citalopram 11. Hiatal hernia / GERD - c/w famotidine 12. DVT prophylaxis - c/w heparin sq VS,Fishbone, I+O VS, Fishbone, I+O Laboratory Tests 03/25/16 06:42 Calcium Level 8.3 L, Red Blood Count 3.31 L, Mean Corpuscular Volume 101.8 H, Mean Corpuscular Hemoglobin 33.8 H, Mean Corpuscular Hemoglobin Concent 33.2, Red Cell Distribution Width 12.2 Vital Signs Date Time Temp Pulse Resp B/P Pulse Ox O2 Delivery O2 Flow Rate FiO2 03/25/16 09:50 78 107/58 03/25/16 09:00 Nasal Cannula 2.0 03/25/16 06:00 97.7 17 91 I&O- Last 24 Hours up to 6 AM 03/25/16 06:00 Intake Total 820 ml Output Total 450 ml Balance 370 ml LINDA DISLA MD Mar 25, 2016 11:52
--- NOTE | 2016-03-25 13:56 | PHACANCOPD ---
PHARMACY VANCOMYCIN DOSING Pt Demographics Demographics Patient Age:70 , Weight:64.500 , Gender: female Adjusted Body Weight Date: 03/25/16, Adjusted Body Weight: Kg Events Past 24 Hours Events Past 24 Hours: YES: Pending Diagnostics Vancomycin Vancomycin indication: Gram positive cocci in clusters on blood cul - possible MRSA Vancomycin Target Ranges: 15-20 mcg/ml Vancomycin Load Y/N: No Load Dose Date Time Vancomycin Load Dose: Date: Time: Vancomycin Dose Date: 03/25/16. Current Vancomycin Dose: [1g x 1 dose 03/25/16 @ 1400, followed by intermittent dosing based on random levels] Intermittent Dosing?: Yes Labs Labs Item Value Date Time White Blood Count 9.2 K/mm3 03/25/16 06 White Blood Count 8.9 K/mm3 03/24/16616 White Blood Count 6.1 K/mm3 03/23/16 2105 Creatinine 3.06 MG/DL H 03/25/16 0642 Creatinine 2.36 MG/DL H 03/24/16616 C-Reactive Protein, Quantitative 23.90 MG/DL H 03/25/16 0642 C-Reactive Protein, Quantitative 10.70 MG/DL H 03/24/16616 Micro Microbiology 03/25/16 Blood Culture, Received Pending 03/25/16 Blood Culture, Received Pending 03/23/16 Blood Culture - Preliminary, Resulted 03/23/16 Blood Culture - Preliminary, Resulted No growth after 24 hours . All specim... 03/25/16 Gram Stain - Final, Resulted 03/25/16 Sputum Culture, Resulted Pending 03/23/16 Influenza Virus Type A Antigen - Final, Complete 03/23/16 Influenza Virus Type B Antigen - Final, Complete Creatinine Clearance Date:03/25/16. Estimated Creatinine Clearance: [11.953 ml/min]. Pending Labs Random vancomycin level scheduled 03/26/16 @ 0600 Assessment and Plan Maintaining Current Dose?: Yes Reason for dose change: No Dose Change Pharmacist Note Pharmacist Note Date: 03/25/16. Pharmacist note: Day #1 vancomycin initiated with 1g x 1 dose @14 for the empiric treatment of gram positive cocci 1/2 blood cultures - possible MRSA - aiming for a goal trough of 15-20 mcg/ml. The patient has a PMH ESRD on HD Tuesdays, , and Saturdays and will be managed via intermittent vanco dosing based on random levels. WBC is WNL, patient is afebrile, CRP is elevated, and Chest CT shows infiltrates in RLL (patient also on IV rocephin and PO zithromax for tx of CAP). No PMH of MRSA or vanco use here at [facility]. A random level has been scheduled tomorrow 03/26/16 @ 0600 prior to dialysis. We will continue to monitor and schedule subsequent doses/random levels accordingly. [facility] Mar 25, 2016 13:56
[2016-03-25 14:00] VITALS: BP 134/64
[2016-03-25] MEDS ORDERED: VANCOMYCIN HCL 1,000 MG, VIAL MATE ADAPTER 1 EACH in D5W 250 ML IV ONE (14:00)
--- NOTE | 2016-03-25 14:52 | CR ---
DATE OF CONSULTATION: 03/25/2016 REQUESTING PROVIDER: Dr. Bolton REASON FOR CONSULTATION: To assist in the management of end-stage renal disease. HISTORY OF PRESENT ILLNESS: Mrs. Vicente is a 70-year-old very pleasant female with multiple chronic medical problems, including a history of chronic obstructive pulmonary disease (COPD), hypertension, dyslipidemia and end-stage renal disease. She is regularly dialyzed on Friday, and Friday schedule. She reports difficulty breathing and cough for a few days, which did not improve with fluid removal during dialysis. She came to the emergency room after dialysis on Friday and was admitted late on Friday morning. She is currently being treated for pulmonary infiltrates. A nephrology consultation was requested due to need for hemodialysis. PAST MEDICAL AND SURGICAL HISTORY: Significant for end-stage renal disease, dyslipidemia, depression, hypertension, restless legs syndrome, fibromyalgia, gastroesophageal reflux disease, chronic obstructive pulmonary disease (COPD), hypothyroidism and aortic aneurysm. PAST SURGICAL HISTORY: Significant for peritoneal dialysis catheter placement and removal due to peritonitis, right arm AV fistula creation, appendectomy, hysterectomy. PERSONAL AND SOCIAL HISTORY: The patient lives by herself. She stopped smoking about 40 years ago. She denies any alcohol or drug use. FAMILY HISTORY There is no family history for end-stage renal disease. Her sister has history of bladder cancer, but is in good health. Her father due to leukemia. Mother had lung cancer, and she is . MEDICATIONS Current medications include: - Zofran 4 mg every 6 hours as needed for nausea - ceftriaxone 2 grams every 12 hours - amlodipine 10 mg daily - azithromycin 500 mg daily - heparin 5000 units every 8 hours - levothyroxine 0.05 mg daily - DuoNebs every 6 hours - Flexeril 10 mg as needed for muscle spasm - Percocet one tablet every 4 hours as needed for moderate pain - Lipitor 20 mg daily - Sensipar 30 mg daily - Celexa 40 mg daily - Requip 2 mg twice a day - Advair Diskus one inhalation twice a day - Pepcid 20 mg twice a day ALLERGIES: She has allergy to CAPTOPRIL, PENICILLIN and FISH DERIVED PRODUCTS. REVIEW OF SYSTEMS: The patient reports feeling generally weak. She denies any headache. There is no ears, nose or throat problems other than cough. She denies any hemoptysis. Respiratory system is negative for pleuritic type of pain. She does have some sputum but no blood. Gastrointestinal system is significant for loss of appetite. She denies any nausea or vomiting. Genitourinary system is negative for dysuria or hematuria. Musculoskeletal system is significant for fibromyalgia and restless legs. She denies any use of nonsteroidal antiinflammatory drugs. Endocrine system is significant for hypothyroidism. She has no diabetes. Hematological system is significant for anemia of chronic kidney disease. She is not on any anticoagulation. Skin is negative for rash or ulcers. Neurological system is negative for any stroke or seizures. PHYSICAL EXAMINATION: The patient is awake and alert and without any acute distress. Temperature is 97.7 degrees Fahrenheit, heart rate 78 per minute and respiratory rate 18 per minute. Blood pressure 107/58 mmHg and oxygen saturation is 91% on 2 liters oxygen. Head is atraumatic. Ears, nose and throat are unremarkable. There is no oral thrush or ulcers. Neck veins are mildly distended. There is no thyroid enlargement and trachea is midline. Pupils are equal and reactive to light and sclera is anicteric. Heart sounds are regular and distant. There is no pericardial friction rub. Lungs with diminished breath sounds at bases bilaterally. Abdomen is soft and nontender and without any palpable organomegaly. Bowel sounds are normal. Extremities have no cyanosis or clubbing. Skin has no rash or ulcers. Neurologically, she is awake and alert and without a melissa focal deficit. PROBLEMS: 1. End-stage renal disease. The patient is regularly dialyzed on Friday, and Friday schedule. She will be scheduled for dialysis tomorrow. At this point, there is no emergent need for dialysis today. 2. Hypokalemia. This is mild and should be corrected with supplement. The patient should be placed on a regular potassium diet. She has already received one dose of potassium supplement and her electrolytes will be checked tomorrow morning. 3. Hypertension. Blood pressure is very well controlled on current antihypertensive medications. No changes are needed. 4. Shortness of breath mostly due to COPD and infiltrate. Her volume status seems well compensated. There is no emergent indication for dialysis today. 5. Pneumonia. The patient is currently being treated with ceftriaxone and azithromycin. I recommend ceftriaxone dose be adjusted to 2 grams every 24 hours. I thank you for involving me in the care of Mrs. Vicente. I will follow her along with you.
[2016-03-25] MEDS: DAPTOMYCIN IV SCH (17:52)
[2016-03-25] MEDS: NS IV SCH (17:52)
[2016-03-25 22:00] VITALS: BP 120/63
[2016-03-25] MEDS: PRAMIPEXOLE (MIRAPEX) 0.125 MG TAB PO SCH (22:16)
[2016-03-25] MEDS: CINACALCET 30 MG TAB (SENSIPAR) PO SCH (22:16)
[2016-03-25] MEDS: CitaloPRAM (CeleXA) 20 MG TAB PO SCH (22:16)
[2016-03-26] MEDS: cefTRIAXone SOD 2 GM in D5W MINI-BAG PLUS 50 ML IV SCH (00:21)
[2016-03-26] MEDS: IPRATROPIUM 0.5MG/ALBUTEROL 2.5MG INH SOL UD 3ML (DUONEB)(J7620) NEB SCH ×4 (01:45→20:00)
[2016-03-26 06:00] VITALS: BP 117/63
[2016-03-26] MEDS: AZITHROMYCIN 250 MG TAB PO SCH (06:27)
[2016-03-26] MEDS: PERCOCET 5MG/325MG TAB PO PRN ×2 (06:28→16:58)
[2016-03-26] MEDS: LEVOTHYROXINE 0.05 MG TAB (50 MCG) PO SCH (06:28)
[2016-03-26] MEDS: rOPINIRole 1MG TAB PO SCH ×2 (06:28→21:41)
[2016-03-26] MEDS: CHECK TO SEE IF PATIENT IS RECEIVING DIALYSIS TODAY AND REFER TO THE VANCOMYCIN ORDER XX SCH (06:29)
[2016-03-26] MEDS: HEPARIN SOD (PORCINE) 5000 UNITS/ML VIAL SC SCH ×3 (06:29→21:41)
[2016-03-26] MEDS: FAMOTIDINE 20 MG TAB PO SCH ×2 (06:31→21:41)
[2016-03-26] MEDS: amLODIPine 10 MG TAB PO SCH (06:37)
[2016-03-26 06:53] LABS: MEAN CORPUSCULAR HEMOGLOBIN 34.7 pg (27.0-33.0); MEAN CORPUSCULAR HGB CONC 33.4 g/dl (32.0-36.5); MEAN CORPUSCULAR VOLUME 103.9 fl (80.0-96.0); WHITE BLOOD COUNT 5.9 K/mm3 (4.0-10.0)
[2016-03-26 07:18] LABS: CALCIUM LEVEL 8.6 MG/DL (8.8-10.2); CREATININE FOR GFR 3.37 MG/DL (0.55-1.02); GLOMERULAR FILTRATION RATE 14.3 (>39); POTASSIUM SERUM 3.8 MEQ/L (3.5-5.1)
[2016-03-26] MEDS: ADVAIR DISKUS 250/50 INH PWD INH SCH ×2 (07:43→20:51)
[2016-03-26] MEDS ORDERED: DARBEPOETIN 100 MCG/0.5 ML *DIALYSIS* SYRINGE (J0882) IV SCH (12:00)
--- NOTE | 2016-03-26 12:09 | IPN ---
DATE: 03/26/2016 Mrs. Vicente is seen this morning during hemodialysis. She continues to have some cough. She denies any chest pain or hemoptysis. She has poor appetite, but no nausea or vomiting. On physical exam, temperature 97.5 degrees Fahrenheit, heart rate 72 per minute and respiratory rate 20 per minute. Blood pressure 117/63 mmHg and oxygen saturation 92% on 2 liter oxygen. Head is atraumatic. Ears, nose and throat are unremarkable. Her lips are dry. There is no oral thrush or ulcers. Neck is supple and without any thyroid enlargement. Trachea is midline. Heart sounds are regular and lungs with diminished breath sounds bilaterally. She has bilateral rhonchi. Abdomen soft and nontender. Bowel sounds are normal and there is no palpable organomegaly. Extremities have no cyanosis or clubbing. She has a right arm AV fistula which is currently being used for dialysis. Today's labs show WBC count 5.9, hemoglobin 10.5 and hematocrit 31.4. Sodium 138 and potassium 3.8. BUN 45 and creatinine 3.37. His C-reactive protein is elevated at 18.8. PROBLEMS: 1. End-stage renal disease. The patient is currently being dialyzed. She is tolerating dialysis treatment very well. We are removing about 2 liters of fluid as tolerated. 2. Pneumonia. The patient is being treated with IV antibiotics. She started to feel better and I recommend to continue with nebulizers and intravenous antibiotics for a few more days. Her ceftriaxone dose has been adjusted for end-stage renal disease. She has also been started on daptomycin 390 mg every 48 hours. Vancomycin has been stopped. Her preliminary blood culture results are positive for gram-positive cocci. 3. Anemia. Her anemia is stable and we will give her Aranesp 100 mcg in view of ongoing infection and risk of worsening anemia. 4. Congestive heart failure. Volume status seems to be reasonably well-compensated and we will continue to monitor closely and keep her volume status corrected with hemodialysis.
[2016-03-26] MEDS ORDERED: HEPARIN 1,000 UNITS/ML 10ML VIAL (FOR RADIOLOGY& DIALYSIS ONLY) IV ONE (12:15)
[2016-03-26] MEDS ORDERED: LIDOCAINE 1% SDV 5 ML VIAL SQ ONE (12:15)
--- NOTE | 2016-03-26 12:17 | EDDOCDS ---
Physician Documentation [facility] Name: Sandra Vicente Age: 70 yrs Sex: Female : 1945 Arrival Date: 03/23/2016 Time: 20:11 Bed 17 Private MD: Eladia Connors E Disposition: 03/23/16 23:05 Hospitalization ordered by Christine Bolton for Inpatient Admission. Preliminary diagnosis is Other pneumonia, unspecified organism. - Bed requested for 4 [place]. - Status is Inpatient Admission. al - Condition is Stable. - Problem is an acute exacerbation. - Symptoms have improved. Historical: - Allergies: Capoten; FISH PRODUCT DERIVATIVES; PENICILLINS; Vancomycin; - Home Meds: 1. Zantac 150 mg Oral tab 1 tab 2 times per day (Last dose: 03/23/2016 08:00) 2. Synthroid 50 mcg Oral tab 1 tab once daily (Last dose: 03/23/2016 08:00) 3. ropinirole 2 mg oral tab twice a day (Last dose: 03/23/2016 08:00) 4. Lipitor 20 mg Oral tab 1 tab once daily (Last dose: 03/22/2016) 5. citalopram 40 mg Oral tab 1 tab once daily (Last dose: 03/22/2016) 6. Advair Diskus 500-50 mcg/dose Inhl dsdv 1 puff 2 times per day (Last dose: 03/23/2016 08:00) 7. Albuterol Inhl 2 puffs as needed (Last dose: 03/23/2016 19:20) 8. Vicodin 5/325 mg Oral tab as needed (Last dose: Unknown) - PMHx: ESRD; GERD; Hypercholesterolemia; Hypertension; Hypothyroidism; Depression; Fibromyalgia; - PSHx: fistula right arm; PD cath; PD cath removed; Appendectomy; Hysterectomy; - Social history: Smoking status: Patient states former smoker of tobacco. No barriers to communication noted, The patient speaks fluent [place], Speaks appropriately for age. - Family history: Not pertinent. - : The pt / caregiver states he / she is not on anticoagulants. Home medication list is obtained from the patient. - Exposure Risk Screening:: None identified. Vital Signs: 03/23 20:13 BP 173 / 77; Pulse 89; Resp 20; Temp 100.4(O); Pulse Ox 95% on R/A; Weight 68.95 kg / elp 152.01 lbs; Height 4 ft. 10 in. (147.32 cm); Pain 0/10; 20:33 BP 146 / 68 (auto/); lf1 20:35 Pulse Ox 91% ; lf1 21:15 Pulse 76 MON; Pulse Ox 98% ; lf1 21:32 Pulse 80 MON; Pulse Ox 98% ; lf1 21:33 BP 152 / 60 (auto/); lf1 22:13 Pulse 88 MON; Pulse Ox 97% ; lf1 22:14 BP 150 / 62 (auto/); lf1 22:34 BP 122 / 59 (auto/); lf1 22:34 Pulse 90 MON; Pulse Ox 97% ; lf1 23:04 BP 108 / 57 (auto/); lf1 23:04 Pulse 84 MON; Pulse Ox 97% ; lf1 23:16 Pulse 84 MON; Pulse Ox 97% on 2 lpm NC; Pain 4/10; lf1 23:34 BP 162 / 92 (auto/); lf1 23:34 Pulse 96 MON; Pulse Ox 96% ; lf1 03/24 00:04 BP 123 / 75 (auto/); lf1 00:04 Pulse 88 MON; Pulse Ox 95% ; lf1 00:22 Pulse 88 MON; Resp 20; Temp 100.0(TE); Pulse Ox 96% ; lf1 03/23 20:13 Body Mass Index 31.77 (68.95 kg, 147.32 cm) elp MDM: 03/23 20:47 -Blood Culture (Adults Only), peripheral from different site, or from device/port/PICC mm11 etc. if present ordered. 20:47 Tapper Balance Wheel Screw Hole/Pulse Ox/q 15 min VS ordered. mm11 20:47 IV Saline Lock ordered. mm11 20:47 Oxygen at 4L/Min NC or Home dosage ordered. mm11 20:47 Rhythm Strip to chart ordered. mm11 20:47 Albuterol-Ipratropium 1 neb Nebulizer every 20 minutes x3 ordered. mm11 20:47 Call Respiratory ordered. mm11 20:48 B-Type Natiuretic Peptide Ordered. EDMS 20:48 Basic Metabolic Profile Ordered. EDMS 20:48 CBC with Diff Ordered. EDMS 20:48 Cardiac Injury Profile Ordered. EDMS 20:48 Troponin Ordered. EDMS 20:48 -Blood Culture Ordered. EDMS 20:48 -Influenza A&B Rapid Antigen - Nose Ordered. EDMS 20:48 ECG WITH READING ER PHYS+CARDIAG ordered. EDMS 20:48 CT Chest Without Contrast Ordered. EDMS 21:06 Call Respiratory complete. cp1 21:11 -Blood Culture (Adults Only), peripheral from different site, or from device/port/PICC ml3 etc. if present complete. 21:12 BLOOD CULTURES Ordered. EDMS 22:41 B-Type Natiuretic Peptide Reviewed. mm11 22:41 Basic Metabolic Profile Reviewed. mm11 22:41 CBC with Diff Reviewed. mm11 22:41 Cardiac Injury Profile Reviewed. mm11 22:41 Troponin Reviewed. mm11 22:41 -Influenza A&B Rapid Antigen - Nose Reviewed. mm11 22:48 Financial registration complete. [email or web address] 22:48 [facility] Payment Agreement was scanned into [employer] and attached to record. [email or web address] 22:57 cefTRIAXone 1 grams IVPB once over 30 mins; dilute in 50mL of NS or D5W ordered. mm11 22:57 azithromycin 500 mg PO once ordered. mm11 22:59 BED REQUEST+ADM ordered. EDMS 23:03 CT Chest Without Contrast Reviewed. mm11 23:28 PHYSICAL THERAPY EVAL & TREAT ordered. EDMS 23:29 Admission / Observation Status ordered. EDMS 23:30 COMPLETE BLOOD COUNT Ordered. EDMS 23:30 BASIC METABOLIC PROFILE Ordered. EDMS 23:30 C REACTIVE PROTEIN QUANTITATIV Ordered. EDMS 23:30 SPUTUM CULTURE AND GRAM STAIN Ordered. EDMS 01/08 00:16 LEGIONELLA ANTIGEN URINE Ordered. EDMS 00:16 URINE STREP PNEUMONIAE ANTIGEN Ordered. EDMS 00:16 INFLUENZA A&B RAPID ANTIGEN Ordered. EDMS 00:45 CARDIAC MARKER PANEL Ordered. EDMS 00:45 CARDIAC MARKER PANEL Ordered. EDMS 07:58 T-Sheet-- Draft Copy was scanned into [employer] and attached to record. [facility] Administered Medications: 03/23 21:15 Drug: Albuterol-Ipratropium 1 neb [ipratropium-albuterol 0.5 mg-3 mg(2.5 mg base)/3 mL lf2 nebulization soln (1 neb)] Route: Nebulizer; 21:20 Drug: Albuterol-Ipratropium 1 neb [ipratropium-albuterol 0.5 mg-3 mg(2.5 mg base)/3 mL lf2 nebulization soln (1 neb)] Route: Nebulizer; 21:25 Drug: Albuterol-Ipratropium 1 neb [ipratropium-albuterol 0.5 mg-3 mg(2.5 mg base)/3 mL lf2 nebulization soln (1 neb)] Route: Nebulizer; 23:11 Drug: cefTRIAXone 1 grams [ceftriaxone 1 gram solution for injection] Route: IVPB; lf1 Infused Over: 30 mins; Site: left antecubital; 23:45 Follow up: IV Status: Completed infusion; IV Intake: 50ml lf1 23:11 Drug: azithromycin 500 mg [azithromycin 250 mg tablet (2 tabs)] Route: PO; lf1 Signatures: Dispatcher [employer] EDMS Minnie Guido, RN RN George Pagan, Comfort Advisor Unit ml3 Janey Alan RN RN lf1 Anjel Sanchez, DO mm11 Rachelle Stringer,MADHAV FAMILY EDUCATOR cp1 Victoria Beebe RN RN dsf Irma Chaudhari, Reg Reg ks16 Tamar, Janey Koenig RT lf2 The chart was reviewed and I authenticate all verbal orders and agree with the evaluation and treatment provided.Attachments: 22:48 [facility] Payment Agreement [email or web address] 03/24 07:58 T-Sheet-- Draft Copy [facility] Chart Complete [facility]
--- NOTE | 2016-03-26 12:17 | EDDOCDS ---
Nurse's Notes [facility] Name: Marisela Vicente Age: 70 yrs Sex: Female : 1945 Arrival Date: 03/23/2016 Time: 20:11 Bed 17 Private MD: Eladia Connors E Diagnosis: Other pneumonia, unspecified organism Presentation: 03/23 20:16 Presenting complaint: Patient states: SOB for the past week. Pt reports a productive dsf cough. Pt was at urgent care was sent over here because her X-ray showed fluid on the lungs. Adult Sepsis Screening: The patient does not have new or worsening altered mentation. Patient's respiratory rate is less than 22. Systolic blood pressure is greater than 100. Patient has a qSOFA score of 0- Negative Sepsis Screen. Suicide/Homicide risk assessment- the patient denies having any suicidal and/or homicidal ideations and does not present with any other emotional, behavioral or mental health complaints. Status: Patient is not a care services manager or dependent. Transition of care: Patient was received from [facility]. 20:16 Acuity: RAUL Level 3 dsf 20:16 Method Of Arrival: Wheelchair dsf Triage Assessment: 20:21 General: Appears in no apparent distress, Behavior is appropriate for age. Pain: Denies dsf pain. Respiratory: Onset: The symptoms/episode began/occurred 1 week ago , Reports shortness of breath on exertion since 1 week ago cough that is productive, since 1 week ago. Derm: Skin is pink, warm & dry. Historical: - Allergies: Capoten; FISH PRODUCT DERIVATIVES; PENICILLINS; Vancomycin; - Home Meds: 1. Zantac 150 mg Oral tab 1 tab 2 times per day (Last dose: 03/23/2016 08:00) 2. Synthroid 50 mcg Oral tab 1 tab once daily (Last dose: 03/23/2016 08:00) 3. ropinirole 2 mg oral tab twice a day (Last dose: 03/23/2016 08:00) 4. Lipitor 20 mg Oral tab 1 tab once daily (Last dose: 03/22/2016) 5. citalopram 40 mg Oral tab 1 tab once daily (Last dose: 03/22/2016) 6. Advair Diskus 500-50 mcg/dose Inhl dsdv 1 puff 2 times per day (Last dose: 03/23/2016 08:00) 7. Albuterol Inhl 2 puffs as needed (Last dose: 03/23/2016 19:20) 8. Vicodin 5/325 mg Oral tab as needed (Last dose: Unknown) - PMHx: ESRD; GERD; Hypercholesterolemia; Hypertension; Hypothyroidism; Depression; Fibromyalgia; - PSHx: fistula right arm; PD cath; PD cath removed; Appendectomy; Hysterectomy; - Social history: Smoking status: Patient states former smoker of tobacco. No barriers to communication noted, The patient speaks fluent Khmer, Speaks appropriately for age. - Family history: Not pertinent. - : The pt / caregiver states he / she is not on anticoagulants. Home medication list is obtained from the patient. - Exposure Risk Screening:: None identified. Screenin:16 Screening information is obtained from the patient. Fall risk: No risks identified. lf1 Assistance ADL's: requires no assistance with activities of daily living. Abuse/DV Screen: The patient / caregiver reports he/she is: not in a situation that causes fear, pain or injury. home support is adequate. 03/24 00:22 Nutritional screening: No deficits noted. lf1 Assessment: 03/23 21:15 Adult Sepsis Screening: The patient does not have new or worsening altered mentation. lf1 Patient's respiratory rate is less than 22. Systolic blood pressure is greater than 100. Patient has a qSOFA score of 0- Negative Sepsis Screen. General: Appears in no apparent distress, Behavior is cooperative. Pain: Denies pain. Neurological: Level of Consciousness is awake, alert, Oriented to person, place, time. EENT: No deficits noted. Cardiovascular: Chest pain is denied. Respiratory: Airway is patent Respiratory effort is even, unlabored, Respiratory pattern is regular, Breath sounds are diminished bilaterally. Reports shortness of breath at rest. GI: Denies nausea, vomiting. Derm: Skin is normal. 22:30 General: Appears in no apparent distress, comfortable, Behavior is cooperative, lf1 pleasant. Pain: Denies pain. Neurological: Level of Consciousness is awake, alert, Oriented to person, place, time. Respiratory: Respiratory effort is even, unlabored, Reports shortness of breath cough that is non-productive. GI: Denies nausea, vomiting. 23:18 Adult Sepsis Screening: The patient does not have new or worsening altered mentation. lf1 Patient's respiratory rate is less than 22. Systolic blood pressure is greater than 100. Patient has a qSOFA score of 0- Negative Sepsis Screen. General: Appears in no apparent distress, comfortable, Behavior is cooperative. Pain: Location: buttocks Pain currently is 3 out of 10 on a pain scale. Neurological: Level of Consciousness is awake, alert, obeys commands, Oriented to person, place, time. EENT: No deficits noted. Cardiovascular: Chest pain is denied. Respiratory: Respiratory effort is even, unlabored. GI: Denies nausea, vomiting. Derm: Skin is normal. 03/24 00:22 General: Appears in no apparent distress, comfortable, Behavior is cooperative. Pain: lf1 Location: buttocks Pain currently is 3 out of 10 on a pain scale. Pain: Quality of pain is described as aching. Neurological: Level of Consciousness is awake, alert. Respiratory: Respiratory effort is even, unlabored, Reports shortness of breath cough that is the patient has mild shortness of breath. GI: Denies nausea, vomiting. : No deficits noted. Vital Signs: 03/23 20:13 BP 173 / 77; Pulse 89; Resp 20; Temp 100.4(O); Pulse Ox 95% on R/A; Weight 68.95 kg; elp Height 4 ft. 10 in. (147.32 cm); Pain 0/10; 20:33 BP 146 / 68 (auto/); lf1 20:35 Pulse Ox 91% ; lf1 21:15 Pulse 76 MON; Pulse Ox 98% ; lf1 21:32 Pulse 80 MON; Pulse Ox 98% ; lf1 21:33 BP 152 / 60 (auto/); lf1 22:13 Pulse 88 MON; Pulse Ox 97% ; lf1 22:14 BP 150 / 62 (auto/); lf1 22:34 BP 122 / 59 (auto/); lf1 22:34 Pulse 90 MON; Pulse Ox 97% ; lf1 23:04 BP 108 / 57 (auto/); lf1 23:04 Pulse 84 MON; Pulse Ox 97% ; lf1 23:16 Pulse 84 MON; Pulse Ox 97% on 2 lpm NC; Pain 4/10; lf1 23:34 BP 162 / 92 (auto/); lf1 23:34 Pulse 96 MON; Pulse Ox 96% ; lf1 03/24 00:04 BP 123 / 75 (auto/); lf1 00:04 Pulse 88 MON; Pulse Ox 95% ; lf1 00:22 Pulse 88 MON; Resp 20; Temp 100.0(TE); Pulse Ox 96% ; lf1 03/23 20:13 Body Mass Index 31.77 (68.95 kg, 147.32 cm) elp Vitals: 03/23 20:13 Log In Time: March 23, 2016 at 20:11. elp ED Course: 20:13 Patient visited by Yenifer Chau PCA. elp 20:13 Eladia Connors is Private Physician. elp 20:13 Patient moved to Waiting elp 20:14 Patient visited by Yenifer Chau PCA. elp 20:14 Patient moved to Pre RCE elp 20:17 Triage Initiated dsf 20:31 Kayleen Sanchez DO is Attending Physician. mm11 20:31 Patient visited by Kayleen Sanchez DO. mm11 20:31 Patient moved to 17 3 20:35 The patient / caregiver is instructed regarding the plan of care and ED course. lf1 20:35 Inserted saline lock: 20 gauge in left antecubital area and blood collected. The lf1 patient tolerated the procedure well. Labs drawn. (by ED staff). Sent per order to lab. Labs/Blood culture drawn. 20:39 Pt greeted and oriented to ED. Patient advised of names of staff involved in care, ml location of call [place], wait times and NPO status. Accompanied by Family Member, Patient has correct armband on for positive identification. Placed in gown. Bed in low position. Call light in reach. Side rails up X2. retail support associate on. Pulse ox on. NIBP on. 20:40 Patient visited by La Santiago PCA. ml 20:46 Patient visited by Kayleen Sanchez DO. mm11 21:05 Patient visited by Ritesh Goodson PCA. kb5 21:05 EKG done. (by ED staff). Reviewed by Kayleen Sanchez DO. kb5 21:14 Troponin Sent. lf1 21:14 Cardiac Injury Profile Sent. lf1 21:14 CBC with Diff Sent. lf1 21:14 Basic Metabolic Profile Sent. lf1 21:15 B-Type Natiuretic Peptide Sent. lf1 21:15 -Blood Culture Sent. lf1 21:15 BLOOD CULTURES Sent. lf1 21:17 Patient visited by Janey Alan,BAILEY. lf1 22:02 Patient visited by Ritesh Goodson PCA. kb5 22:48 [facility] Payment Agreement was scanned into [place]. com. cn and attached to record. ks16 22:56 Patient visited by Kayleen Sanchez DO. mm11 22:59 CT Chest Without Contrast Returned. EDMS 23:04 Christine Bolton is Hospitalizing Provider. mm11 23:16 Patient visited by Janey Alan,RN. lf1 23:19 Patient visited by Janey Alan,BAILEY. lf1 23:42 EKG-ADULT Returned. EDMS 03/24 00:26 Patient visited by Janey Alan RN. lf1 07:58 T-Sheet-- Draft Copy was scanned into [place]. com. cn and attached to record. seh Administered Medications: 03/23 21:15 Drug: Albuterol-Ipratropium 1 neb [ipratropium-albuterol 0.5 mg-3 mg(2.5 mg base)/3 mL lf2 nebulization soln (1 neb)] Route: Nebulizer; 21:20 Drug: Albuterol-Ipratropium 1 neb [ipratropium-albuterol 0.5 mg-3 mg(2.5 mg base)/3 mL lf2 nebulization soln (1 neb)] Route: Nebulizer; 21:25 Drug: Albuterol-Ipratropium 1 neb [ipratropium-albuterol 0.5 mg-3 mg(2.5 mg base)/3 mL lf2 nebulization soln (1 neb)] Route: Nebulizer; 23:11 Drug: cefTRIAXone 1 grams [ceftriaxone 1 gram solution for injection] Route: IVPB; lf1 Infused Over: 30 mins; Site: left antecubital; 23:45 Follow up: IV Status: Completed infusion; IV Intake: 50ml lf1 23:11 Drug: azithromycin 500 mg [azithromycin 250 mg tablet (2 tabs)] Route: PO; lf1 Intake: 23:45 IV: 50.00ml; Total: 50.00ml. lf1 RT: 21:15 Initial Med Neb Given as ordered Patient was instructed and evaluated on procedure lf2 Patient tolerated procedure well without adverse effect. O2 via nasal cannula \T\ 2L/min. Respiratory: Respiratory effort is even, unlabored, relaxed, Respiratory pattern is regular symmetrical, trachea is midline Breath sounds are coarse bilaterally. Breath sounds are diminished bilaterally. Reports shortness of breath on exertion cough that is productive. 21:22 Subsequent Med Neb Given as ordered Patient tolerated procedure well without adverse lf2 effect. Respiratory: Breath sounds are coarse bilaterally. Breath sounds are diminished bilaterally. 21:25 Subsequent Med Neb Given as ordered Patient tolerated procedure well without adverse lf2 effect. Respiratory: Breath sounds are coarse bilaterally. Order Results: Lab Order: B-Type Natiuretic Peptide; SPEC'M 03/23/16 21:05 Test: BRAIN NATRIURETIC PEPTIDE; Value: 171; Range: <100; Abnormal: Above high normal; Units: PG/ML; Status: F Lab Order: Basic Metabolic Profile; SPEC'M 03/23/16 21:05 Test: GLUCOSE, FASTING; Value: 129; Range: 83-110; Abnormal: Above high normal; Units: MG/DL; Status: F Test: BLOOD UREA NITROGEN; Value: 16; Range: 7-18; Units: MG/DL; Status: F Test: CREATININE FOR GFR; Value: 1.86; Range: 0.55-1.02; Abnormal: Above high normal; Units: MG/DL; Status: F Test: GLOMERULAR FILTRATION RATE; Value: 28.4; Range: >39; Abnormal: Below low normal; Status: F Test: SODIUM LEVEL; Value: 139; Range: 136-145; Units: MEQ/L; Status: F Test: POTASSIUM SERUM; Value: 3.7; Range: 3.5-5.1; Units: MEQ/L; Status: F Test: CHLORIDE LEVEL; Value: 100; Range: 98-107; Units: MEQ/L; Status: F Test: CARBON DIOXIDE LEVEL; Value: 32; Range: 21-32; Units: MEQ/L; Status: F Test: ANION GAP; Value: 7; Range: 8-16; Abnormal: Below low normal; Units: MEQ/L; Status: F Test: CALCIUM LEVEL; Value: 9.1; Range: 8.8-10.2; Units: MG/DL; Status: F Test Note: ; Units are mL/min/1.73 m2 Chronic Kidney Disease Staging per NKF: Stage I & II GFR >=60 Normal to Mildly Decreased Stage III GFR 30-59 Moderately Decreased Stage IV GFR 15-29 Severely Decreased Stage V GFR <15 Very Little GFR Left ESRD GFR <15 on WAREHOUSE FORKLIFT OPERATOR Lab Order: CBC with Diff; SPEC'M 03/23/16 21:05 Test: WHITE BLOOD COUNT; Value: 6.1; Range: 4.0-10.0; Units: K/mm3; Status: F Test: RED BLOOD COUNT; Value: 3.83; Range: 4.00-5.40; Abnormal: Below low normal; Units: M/mm3; Status: F Test: HEMOGLOBIN; Value: 12.8; Range: 12.0-16.0; Units: g/dl; Status: F Test: HEMATOCRIT; Value: 39.3; Range: 36.0-47.0; Units: %; Status: F Test: MEAN CORPUSCULAR VOLUME; Value: 102.6; Range: 80.0-96.0; Abnormal: Above high normal; Units: fl; Status: F Test: MEAN CORPUSCULAR HEMOGLOBIN; Value: 33.5; Range: 27.0-33.0; Abnormal: Above high normal; Units: pg; Status: F Test: MEAN CORPUSCULAR HGB CONC; Value: 32.6; Range: 32.0-36.5; Units: g/dl; Status: F Test: RED CELL DISTRIBUTION WIDTH; Value: 12.3; Range: 11.5-14.5; Units: %; Status: F Test: PLATELET COUNT, AUTOMATED; Value: 212; Range: 150-450; Units: k/mm3; Status: F Test: NEUTROPHILS %; Value: 67.3; Range: 36.0-66.0; Abnormal: Above high normal; Units: %; Status: F Test: LYMPH %; Value: 19.1; Range: 24.0-44.0; Abnormal: Below low normal; Units: %; Status: F Test: MONO %; Value: 7.1; Range: 0.0-5.0; Abnormal: Above high normal; Units: %; Status: F Test: EOS %; Value: 1.6; Range: 0.0-3.0; Units: %; Status: F Test: BASO %; Value: 0.6; Range: 0.0-1.0; Units: %; Status: F Test: LARGE UNSTAINED CELL %; Value: 4.3; Range: 0.0-4.0; Abnormal: Above high normal; Units: %; Status: F Test: NEUTROPHILS #; Value: 4.1; Range: 1.8-7.7; Units: K/mm3; Status: F Test: LYMPH #; Value: 1.2; Range: 1.5-4.5; Abnormal: Below low normal; Units: K/mm3; Status: F Test: MONO #; Value: 0.4; Range: 0.0-0.8; Units: K/mm3; Status: F Test: EOS #; Value: 0.1; Range: 0.0-0.50; Units: K/mm3; Status: F Test: BASO #; Value: 0.0; Range: 0.0-0.2; Units: K/mm3; Status: F Test: LARGE UNSTAINED CELL #; Value: 0.3; Range: 0.0-0.4; Units: K/mm3; Status: F Lab Order: Cardiac Injury Profile; SPEC'M 03/23/16 21:05 Test: CPK CREATINE PHOSPHOKINASE; Value: 208; Range: 26-192; Abnormal: Above high normal; Units: U/L; Status: F Test: CK-MB VALUE MASS; Value: 3.3; Range: 0.0-3.6; Units: NG/ML; Status: F Test: MB/CK RELATIVE INDEX; Value: 1.58; Range: < OR =4; Status: F Test Note: ; DIAGNOSIS CRITERIA MMB ng/ml Relative Index (RI) NON-AMI < or = 5 N/A PEREZ ZONE > 5 < or = 4 AMI > 5 > 4 Lab Order: Troponin; SPEC'M 03/23/16 21:05 Test: TROPONIN I; Value: 0.04; Range: < 0.10; Units: NG/ML; Status: F Test Note: ; Troponin I Reference Interval for [place] LOCI: 99th Percentile= 0.00-0.045 ng/ml Risk Stratification: <= 0.10 ng/ml Decreased Risk for Adverse Clinical Events. 0.10-1.50 ng/ml Increased Risk for Adverse Clinical Events. Evaluation of additional criterion and/or repeat testing in 2-6 hours is suggested to rule out myocardial damage. >= 1.50 ng/ml Indicative of Myocardial Injury. Lab Order: -Influenza A&B Rapid Antigen - Nose; SPEC'M 03/23/16 21:07 Test: INFLUENZA A RAPID SCR by ICA; Value: INFLUENZA A RESULTS NEGATIVE; Status: F Test: INFLUENZA A RAPID SCR by ICA; Value: Comments:; Status: F Test: INFLUENZA B RAPID SCR by ICA; Value: INFLUENZA B RESULTS NEGATIVE; Status: F Test Note: ; The Influenza test is a direct rapid immunoassay for the qualitative detection of Influenza viral antigen. Cell culture (Viral Culture) testing should be considered to confirm NEGATIVE results and to assist in detecting other viruses that can provide similar clinical symptoms. Please contact the lab within 24 hours ([phone]) if confirmatory testing is desired. Radiology Order: EKG-ADULT Test: EKG-ADULT REASON FOR EXAMINATION: Shortness of Breath; Stationary ECG Study; [facility] - ED; ; Test Date: 2016-03-23; Pat Name: MARISELA VICENTE Department:; Room: -; Gender: F Wrong Address Clerk: ANGELA; : 1945 Requested By: KAYLEEN Lee; Order Number: [id number] Reading MD: Virgil Hernandez; Measurements; Intervals Dolph; Rate: 76 P: 29; AZ: 137 QRS: 7; QRSD: 102 T: 15; QT: 398; QTc: 450; Interpretive Statements; SINUS RHYTHM; POSSIBLE RIGHT VENTRICULAR CONDUCTION DELAY; NO PRIORS; Electronically Signed On 03-23-2016 23:07:39 EST by Virgil Hernandez; Radiology Order: CT Chest Without Contrast Test: CT Chest Without Contrast REASON FOR EXAMINATION: Shortness of Breath; ; CLINICAL HISTORY: Shortness of breath.; ; TECHNIQUE: CT chest without contrast.; ; COMPARISON: No pertinent prior studies are available at this time.; ; CT CHEST WITHOUT CONTRAST:; Lungs: There is a 5 mm nodule in the superior aspect of the right lower lobe on axial image 46. There; is a larger conglomerate nodule measuring approximately 10 mm in the right lower lobe on axial image; 51, which has No infiltrate, masses or effusion.; Heart: Normal size. No significant effusion.; Aorta: 4.8 cm aneurysm of the ascending aorta. 2.8 cm aneurysm of the left subclavian artery.; Mediastinum and marisol: No significant lymphadenopathy.; Bony thorax: No acute findings. S-shaped thoracolumbar scoliosis.; Stomach: Moderate hiatal hernia noted.; Limited upper abdomen: No acute findings.; IMPRESSION:; 1. Nodular infiltrates in the superior segment of the right lower lobe. It is uncertain if this repre; sents bronchopneumonic infiltrate or soft tissue nodules. Recommend follow-up CT at 3, 9 and 24 month; s, to establish two-year stability or resolution.; ; 2. Mild groundglass infiltrates in the right middle and left lower lobes.; ; 3. Aneurysms of the ascending aorta and left subclavian artery. The acuity of these aneurysms is unce; rtain without prior studies for comparison, though the presence of peripheral mural calcification sug; gests nonacute character. Dissection is not excluded without contrast.; ; 4. Moderate hiatal hernia.; ; Outcome: 23:05 Decision to Hospitalize by Provider. mm11 03/24 01:12 Patient left the ED. al Signatures: Dispatcher [employer] EDMS Minnie Guido RN Ritesh Crockett, ROLLER BILLET MILL ROLLER BILLET MILL kb5 Janey Alan,RN RN lf1 Kalyeen Sanchez, DO mm11 La Santiago, ROLLER BILLET MILL ROLLER BILLET MILL Victoria BlancoRN Yenifer Perea, ROLLER BILLET MILL ROLLER BILLET MILL Orlando Aguiar RN RN Irma Montano, Reg Reg ks16 Janey Bustillos,RT RT lf2 Dafne Boyle Chart Complete MTDD
--- NOTE | 2016-03-26 12:17 | EDDOCDS ---
Physician Documentation [facility] Name: Sandra Vicente Age: 70 yrs Sex: Female : 1945 Arrival Date: 03/23/2016 Time: 20:11 Bed 17 Private MD: Eladia Connors E Disposition: 03/23/16 23:05 Hospitalization ordered by Christine Bolton for Inpatient Admission. Preliminary diagnosis is Other pneumonia, unspecified organism. - Bed requested for 4 [place]. - Status is Inpatient Admission. al - Condition is Stable. - Problem is an acute exacerbation. - Symptoms have improved. Historical: - Allergies: Capoten; FISH PRODUCT DERIVATIVES; PENICILLINS; Vancomycin; - Home Meds: 1. Zantac 150 mg Oral tab 1 tab 2 times per day (Last dose: 03/23/2016 08:00) 2. Synthroid 50 mcg Oral tab 1 tab once daily (Last dose: 03/23/2016 08:00) 3. ropinirole 2 mg oral tab twice a day (Last dose: 03/23/2016 08:00) 4. Lipitor 20 mg Oral tab 1 tab once daily (Last dose: 03/22/2016) 5. citalopram 40 mg Oral tab 1 tab once daily (Last dose: 03/22/2016) 6. Advair Diskus 500-50 mcg/dose Inhl dsdv 1 puff 2 times per day (Last dose: 03/23/2016 08:00) 7. Albuterol Inhl 2 puffs as needed (Last dose: 03/23/2016 19:20) 8. Vicodin 5/325 mg Oral tab as needed (Last dose: Unknown) - PMHx: ESRD; GERD; Hypercholesterolemia; Hypertension; Hypothyroidism; Depression; Fibromyalgia; - PSHx: fistula right arm; PD cath; PD cath removed; Appendectomy; Hysterectomy; - Social history: Smoking status: Patient states former smoker of tobacco. No barriers to communication noted, The patient speaks fluent Peruvian, Speaks appropriately for age. - Family history: Not pertinent. - : The pt / caregiver states he / she is not on anticoagulants. Home medication list is obtained from the patient. - Exposure Risk Screening:: None identified. Vital Signs: 03/23 20:13 BP 173 / 77; Pulse 89; Resp 20; Temp 100.4(O); Pulse Ox 95% on R/A; Weight 68.95 kg / elp 152.01 lbs; Height 4 ft. 10 in. (147.32 cm); Pain 0/10; 20:33 BP 146 / 68 (auto/); lf1 20:35 Pulse Ox 91% ; lf1 21:15 Pulse 76 MON; Pulse Ox 98% ; lf1 21:32 Pulse 80 MON; Pulse Ox 98% ; lf1 21:33 BP 152 / 60 (auto/); lf1 22:13 Pulse 88 MON; Pulse Ox 97% ; lf1 22:14 BP 150 / 62 (auto/); lf1 22:34 BP 122 / 59 (auto/); lf1 22:34 Pulse 90 MON; Pulse Ox 97% ; lf1 23:04 BP 108 / 57 (auto/); lf1 23:04 Pulse 84 MON; Pulse Ox 97% ; lf1 23:16 Pulse 84 MON; Pulse Ox 97% on 2 lpm NC; Pain 4/10; lf1 23:34 BP 162 / 92 (auto/); lf1 23:34 Pulse 96 MON; Pulse Ox 96% ; lf1 03/24 00:04 BP 123 / 75 (auto/); lf1 00:04 Pulse 88 MON; Pulse Ox 95% ; lf1 00:22 Pulse 88 MON; Resp 20; Temp 100.0(TE); Pulse Ox 96% ; lf1 03/23 20:13 Body Mass Index 31.77 (68.95 kg, 147.32 cm) elp MDM: 03/23 20:47 -Blood Culture (Adults Only), peripheral from different site, or from device/port/PICC mm11 etc. if present ordered. 20:47 Gas Blender/Pulse Ox/q 15 min VS ordered. mm11 20:47 IV Saline Lock ordered. mm11 20:47 Oxygen at 4L/Min NC or Home dosage ordered. mm11 20:47 Rhythm Strip to chart ordered. mm11 20:47 Albuterol-Ipratropium 1 neb Nebulizer every 20 minutes x3 ordered. mm11 20:47 Call Respiratory ordered. mm11 20:48 B-Type Natiuretic Peptide Ordered. EDMS 20:48 Basic Metabolic Profile Ordered. EDMS 20:48 CBC with Diff Ordered. EDMS 20:48 Cardiac Injury Profile Ordered. EDMS 20:48 Troponin Ordered. EDMS 20:48 -Blood Culture Ordered. EDMS 20:48 -Influenza A&B Rapid Antigen - Nose Ordered. EDMS 20:48 ECG WITH READING ER PHYS+CARDIAG ordered. EDMS 20:48 CT Chest Without Contrast Ordered. EDMS 21:06 Call Respiratory complete. cp1 21:11 -Blood Culture (Adults Only), peripheral from different site, or from device/port/PICC ml3 etc. if present complete. 21:12 BLOOD CULTURES Ordered. EDMS 22:41 B-Type Natiuretic Peptide Reviewed. mm11 22:41 Basic Metabolic Profile Reviewed. mm11 22:41 CBC with Diff Reviewed. mm11 22:41 Cardiac Injury Profile Reviewed. mm11 22:41 Troponin Reviewed. mm11 22:41 -Influenza A&B Rapid Antigen - Nose Reviewed. mm11 22:48 Financial registration complete. ks16 22:48 ON LICENSE OF [facility] Payment Agreement was scanned into [employer] and attached to record. ks16 22:57 cefTRIAXone 1 grams IVPB once over 30 mins; dilute in 50mL of NS or D5W ordered. mm11 22:57 azithromycin 500 mg PO once ordered. mm11 22:59 BED REQUEST+ADM ordered. EDMS 23:03 CT Chest Without Contrast Reviewed. mm11 23:28 PHYSICAL THERAPY EVAL & TREAT ordered. EDMS 23:29 Admission / Observation Status ordered. EDMS 23:30 COMPLETE BLOOD COUNT Ordered. EDMS 23:30 BASIC METABOLIC PROFILE Ordered. EDMS 23:30 C REACTIVE PROTEIN QUANTITATIV Ordered. EDMS 23:30 SPUTUM CULTURE AND GRAM STAIN Ordered. EDMS 01/08 00:16 LEGIONELLA ANTIGEN URINE Ordered. EDMS 00:16 URINE STREP PNEUMONIAE ANTIGEN Ordered. EDMS 00:16 INFLUENZA A&B RAPID ANTIGEN Ordered. EDMS 00:45 CARDIAC MARKER PANEL Ordered. EDMS 00:45 CARDIAC MARKER PANEL Ordered. EDMS 07:58 T-Sheet-- Draft Copy was scanned into [employer] and attached to record. [facility] Administered Medications: 03/23 21:15 Drug: Albuterol-Ipratropium 1 neb [ipratropium-albuterol 0.5 mg-3 mg(2.5 mg base)/3 mL lf2 nebulization soln (1 neb)] Route: Nebulizer; 21:20 Drug: Albuterol-Ipratropium 1 neb [ipratropium-albuterol 0.5 mg-3 mg(2.5 mg base)/3 mL lf2 nebulization soln (1 neb)] Route: Nebulizer; 21:25 Drug: Albuterol-Ipratropium 1 neb [ipratropium-albuterol 0.5 mg-3 mg(2.5 mg base)/3 mL lf2 nebulization soln (1 neb)] Route: Nebulizer; 23:11 Drug: cefTRIAXone 1 grams [ceftriaxone 1 gram solution for injection] Route: IVPB; lf1 Infused Over: 30 mins; Site: left antecubital; 23:45 Follow up: IV Status: Completed infusion; IV Intake: 50ml lf1 23:11 Drug: azithromycin 500 mg [azithromycin 250 mg tablet (2 tabs)] Route: PO; lf1 Signatures: Dispatcher [employer] EDMS Minnie Guido, RN RN George Pagan, Production Repairer Unit ml3 Janey Alan RN RN lf1 Anjel Sanchez, DO mm11 Rachelle Stringer,MADHAV SOLVENT PROCESS EXTRACTOR OPERATOR cp1 Victoria Beebe RN RN dsf Irma Chaudhari, Reg Reg ks16 Tamar, Janey Koenig RT lf2 The chart was reviewed and I authenticate all verbal orders and agree with the evaluation and treatment provided.Attachments: 22:48 ON LICENSE OF [facility] Payment Agreement [email or web address] 03/24 07:58 T-Sheet-- Draft Copy [facility] Chart Complete [facility]
[2016-03-26 14:00] VITALS: BP 127/60
--- NOTE | 2016-03-26 14:48 | IPNPDOC ---
Text Note Date of Service The patient was seen on 03/26/16 at 14:09. NOTE Subjective: Pt states her SOB and cough is much improved. Just came back from HD , which she tolerated well. Objective: Vitals: (see below) General: No acute distress, laying comfortably in bed. HEENT: Moist mucous membranes. Neck: No JVD or lymphadenopathy. Cardiac: RRR Pulm: Clear to auscultation b/l. No wheezing, rhonchi. Abd: NT/ND + BS. Ext: No edema or cyanosis. RUE AVF + bruit. Labs (see below) Images: CT Chest 03/25/16 IMPRESSION: 1. Nodular infiltrates in the superior segment of the right lower lobe. It is uncertain if this represents bronchopneumonic infiltrate or soft tissue nodules. Recommend follow-up CT at 3, 9 and 24 months, to establish two-year stability or resolution. 2. Mild groundglass infiltrates in the right middle and left lower lobes. 3. Aneurysms of the ascending aorta and left subclavian artery. The acuity of these aneurysms is uncertain without prior studies for comparison, though the presence of peripheral mural calcification suggests nonacute character. Dissection is not excluded without contrast. 4. Moderate hiatal hernia. Assessment/Plan 1. ?HCAP vs Strep. Pneumonia - patient does have sputum culture suture positive for gram positives in chains. One blood culture positive for gram- positive in clusters. Repeat blood culture sent. On Daptomycin and Rocephin. Trend CRP and WBCs. Afebrile. CT chest (see above). Status post C3. On 2 L nasal cannula. 2. Gram-positive cocci in clusters- only in one bottle. Likely contaminated. Repeat blood culture sent. Patient has an allergy to vancomycin. Continue daptomycin, renally dosed which will likely be discontinued as cx is likely contaminated 3. End-stage disease on hemodialysis Friday//Friday. Did have hemodialysis today and tolerated it well. Appreciate nephro input 4. Ascending aortic aneurysm- no prior CTs to compare. Patient will need follow- up with Dr. Galeana outpatient. 5. COPD- stable, continue nebs 6. Hypothyroidism- continue Synthroid 7. Hyperlipidemia- continue statin 8. Restless leg syndrome- continue ropinirole 9. Fibromyalgia 10. Depression- continue citalopram 11. Hiatal hernia/GERD on famotidine DVT prophy: Heparin subcutaneous VS,Fishbone, I+O VS, Fishbone, I+O Laboratory Tests 03/26/16 06:10 Calcium Level 8.6 L, Red Blood Count 3.02 L, Mean Corpuscular Volume 103.9 H, Mean Corpuscular Hemoglobin 34.7 H, Mean Corpuscular Hemoglobin Concent 33.4, Red Cell Distribution Width 12.0 Vital Signs Date Time Temp Pulse Resp B/P Pulse Ox O2 Delivery O2 Flow Rate FiO2 03/26/16 07:58 91 Room Air 03/26/16 07:54 2.0 03/26/16 07:04 20 03/26/16 06:00 97.5 72 117/63 I&O- Last 24 Hours up to 6 AM 03/26/16 06:00 Intake Total 1190 ml Output Total 650 ml Balance 540 ml ISAAC FARFAN MD Mar 26, 2016 14:48
[2016-03-26] MEDS: CINACALCET 30 MG TAB (SENSIPAR) PO SCH (21:40)
[2016-03-26] MEDS: PRAMIPEXOLE (MIRAPEX) 0.125 MG TAB PO SCH (21:40)
[2016-03-26] MEDS: CitaloPRAM (CeleXA) 20 MG TAB PO SCH (21:41)
[2016-03-26 22:00] VITALS: BP 114/54
[2016-03-27] MEDS: cefTRIAXone SOD 2 GM in D5W MINI-BAG PLUS 50 ML IV SCH (00:29)
[2016-03-27] MEDS: IPRATROPIUM 0.5MG/ALBUTEROL 2.5MG INH SOL UD 3ML (DUONEB)(J7620) NEB SCH ×4 (01:38→20:00)
[2016-03-27] MEDS: PERCOCET 5MG/325MG TAB PO PRN ×2 (04:45→22:02)
[2016-03-27] MEDS: HEPARIN SOD (PORCINE) 5000 UNITS/ML VIAL SC SCH ×3 (05:31→21:41)
[2016-03-27] MEDS: LEVOTHYROXINE 0.05 MG TAB (50 MCG) PO SCH (05:31)
[2016-03-27 06:00] VITALS: BP 133/60
[2016-03-27 07:06] LABS: MEAN CORPUSCULAR HEMOGLOBIN 34.4 pg (27.0-33.0); MEAN CORPUSCULAR HGB CONC 33.4 g/dl (32.0-36.5); RED CELL DISTRIBUTION WIDTH 12.1 % (11.5-14.5); WHITE BLOOD COUNT 4.9 K/mm3 (4.0-10.0)
[2016-03-27 07:24] LABS: CALCIUM LEVEL 8.4 MG/DL (8.8-10.2); CREATININE FOR GFR 2.92 MG/DL (0.55-1.02); GLOMERULAR FILTRATION RATE 16.9 (>39); POTASSIUM SERUM 4.2 MEQ/L (3.5-5.1)
[2016-03-27] MEDS: ADVAIR DISKUS 250/50 INH PWD INH SCH ×2 (07:50→20:48)
[2016-03-27] MEDS: FAMOTIDINE 20 MG TAB PO SCH ×2 (08:58→21:41)
[2016-03-27] MEDS: AZITHROMYCIN 250 MG TAB PO SCH (08:58)
[2016-03-27] MEDS: amLODIPine 10 MG TAB PO SCH (08:59)
[2016-03-27] MEDS: rOPINIRole 1MG TAB PO SCH ×2 (08:59→21:41)
[2016-03-27] MEDS: CHECK TO SEE IF PATIENT IS RECEIVING DIALYSIS TODAY AND REFER TO THE VANCOMYCIN ORDER XX SCH (08:59)
--- NOTE | 2016-03-27 09:27 | IPNPDOC ---
Date of Service/Time Mar 23, 2016 at 20:11 Progress Note DATE OF ENCOUNTER: 03/27/16 SUBJECTIVE: Ms. Vicente was seen this morning at bedside. No acute overnight issues. Patient had hemodialysis yesterday which she tolerated well. No lightheadedness or dizziness. Blood pressure stable. 1500ml was removed. She reports that breathing is improved. No chest pain. No fevers or chills. White count is not elevated. No nausea, vomiting, abdominal pain or diarrhea. Appetite is not the greatest, but states she is not much of a breakfast person. OBJECTIVE: Vital Signs Date Time Temp Pulse Resp B/P Pulse Ox O2 Delivery O2 Flow Rate FiO2 03/27/16 08:59 81 133/60 03/27/16 06:00 97.8 20 95 03/27/16 05:30 Room Air I&O- Last 24 Hours up to 6 AM 03/27/16 06:00 Intake Total 1070 ml Output Total 1700 ml Balance -630 ml GENERAL: The patient is alert and oriented. In no acute distress. HEENT: Normocephalic, atraumatic. Extraocular muscles intact. Moist mucosa. NECK: Supple. Jugular pulsations not elevated. CHEST: Symmetric with no use of accessory muscles. HEART: Positive S1, S2. Regular rate and rhythm. She has a systolic ejection murmur heard best along left sternal border. LUNGS: Good air movement bilaterally. Few scattered rhonchi. ABDOMEN: Soft. Nontender, nondistended. Bowel sounds present. EXTREMITIES: No cyanosis or lower extremity edema. Positive pedal pulses bilaterally. Has right arm fistula. NEUROLOGIC: No focal deficits. LABORATORY DATA: 03/27/16 06:33 Calcium Level 8.4 L, Red Blood Count 3.14 L, Mean Corpuscular Volume 103.0 H, Mean Corpuscular Hemoglobin 34.4 H, Mean Corpuscular Hemoglobin Concentration 33.4, Red Cell Distribution Width 12.1, Anion Gap 11, C-Reactive Protein, Quantitative 14.20H, Glomerular Filtration Rate 16.9L, Total Creatine Kinase 124 ASSESSMENT AND PLAN: 1. End-stage renal disease. The patient received hemodialysis yesterday where 1500ml was removed. She tolerated it well. Continue with regular schedule of Friday, and Friday. 2. Pneumonia. The patient is being treated with antibiotics including daptomycin, ceftriaxone and azithromycin. She reports breathing is improved. Her blood culture results show micrococcus luteus. Repeat blood cultures show no growth thus far. 3. Anemia. Her anemia is stable and she received a dose of Aranesp 100 mcg. 4. Congestive heart failure. Volume status seems to be compensated and we will continue to monitor closely and keep her volume status corrected with hemodialysis. 5. Hypertension. Blood pressure stable. Continue Norvasc. 6. Secondary hyperparathyroidism. Continue Sensipar. VS, I&O, 24H, Fishbone VS, I&O, 24H, Fishbone GME ATTESTATION GME ATTESTATION My preceptor for this patient encounter was physically present in the building during the encounter and was fully available. As needed, all aspects of the patient interview, examination, medical decision making process, and medical care plan development were reviewed and approved by the preceptor. Preceptor is aware and concurs with the plan as stated in the body of this note and will attest to such by his/her cosignature. YESI MALIK DO Mar 27, 2016 09:27
[2016-03-27 14:00] VITALS: BP 120/60
[2016-03-27] MEDS: DAPTOMYCIN IV SCH (15:14)
[2016-03-27] MEDS: NS IV SCH (15:14)
[2016-03-27] MEDS ORDERED: MOM 30ML SUSPENSION UDC PO PRN (15:45)
--- NOTE | 2016-03-27 15:47 | IPNPDOC ---
Text Note Date of Service The patient was seen on 03/27/16 at 15:45. NOTE Subjective: Pt denies any complaints. No CP/SOB/palpitations. Objective: Vitals: (see below) General: No acute distress, laying comfortably in bed. HEENT: Moist mucous membranes. Neck: No JVD or lymphadenopathy. Cardiac: RRR Pulm: Clear to auscultation b/l. No wheezing, rhonchi. Abd: NT/ND + BS. Ext: No edema or cyanosis. RUE AVF + bruit. Labs (see below) Images: CT Chest 03/25/16 IMPRESSION: 1. Nodular infiltrates in the superior segment of the right lower lobe. It is uncertain if this represents bronchopneumonic infiltrate or soft tissue nodules. Recommend follow-up CT at 3, 9 and 24 months, to establish two-year stability or resolution. 2. Mild groundglass infiltrates in the right middle and left lower lobes. 3. Aneurysms of the ascending aorta and left subclavian artery. The acuity of these aneurysms is uncertain without prior studies for comparison, though the presence of peripheral mural calcification suggests nonacute character. Dissection is not excluded without contrast. 4. Moderate hiatal hernia. Assessment/Plan 1. ?HCAP vs Strep. Pneumonia - patient does have sputum culture suture positive for gram positives in chains. One blood culture was contaminated, so we will d/c the daptomycin. Repeat blood culture negative thus far. Cont Rocephin. Trend CRP and WBCs. Afebrile. CT chest (see above). Status post C3. On 2 L nasal cannula. 2. End-stage disease on hemodialysis Friday//Friday. Did have hemodialysis today and tolerated it well. Appreciate nephro input 3. Ascending aortic aneurysm- no prior CTs to compare. Patient will need follow- up with Dr. Galeana outpatient. 4. COPD- stable, continue nebs 5. Hypothyroidism- continue Synthroid 6. Hyperlipidemia- continue statin 7. Restless leg syndrome- continue ropinirole 8. Fibromyalgia 9. Depression- continue citalopram 10. Hiatal hernia/GERD on famotidine DVT prophy: Heparin subcutaneous VS,Fishbone, I+O VS, Fishbone, I+O Laboratory Tests 03/27/16 06:33 Calcium Level 8.4 L, Red Blood Count 3.14 L, Mean Corpuscular Volume 103.0 H, Mean Corpuscular Hemoglobin 34.4 H, Mean Corpuscular Hemoglobin Concent 33.4, Red Cell Distribution Width 12.1 Vital Signs Date Time Temp Pulse Resp B/P Pulse Ox O2 Delivery O2 Flow Rate FiO2 03/27/16 14:00 97.9 83 18 120/60 92 03/27/16 09:00 Room Air 03/26/16 07:54 2.0 I&O- Last 24 Hours up to 6 AM 03/27/16 05:59 Intake Total 1250 ml Output Total 1800 ml Balance -550 ml ISAAC FARFAN MD Mar 27, 2016 15:47
[2016-03-27] MEDS: MIRALAX *UNIT DOSE* 17GM PACKET PO SCH (21:00)
[2016-03-27] MEDS: CINACALCET 30 MG TAB (SENSIPAR) PO SCH (21:40)
[2016-03-27] MEDS: CitaloPRAM (CeleXA) 20 MG TAB PO SCH (21:41)
[2016-03-27] MEDS: DOCUSATE SODIUM 100 MG CAP PO SCH (21:41)
[2016-03-27] MEDS: PRAMIPEXOLE (MIRAPEX) 0.125 MG TAB PO SCH (21:41)
[2016-03-27 22:00] VITALS: BP 120/80
[2016-03-28] MEDS: cefTRIAXone SOD 2 GM in D5W MINI-BAG PLUS 50 ML IV SCH ×2 (00:19→23:37)
[2016-03-28] MEDS: IPRATROPIUM 0.5MG/ALBUTEROL 2.5MG INH SOL UD 3ML (DUONEB)(J7620) NEB SCH ×4 (01:34→20:00)
[2016-03-28 06:00] VITALS: BP 118/53
[2016-03-28] MEDS: rOPINIRole 1MG TAB PO SCH ×2 (06:33→20:48)
[2016-03-28] MEDS: DOCUSATE SODIUM 100 MG CAP PO SCH (06:33)
[2016-03-28] MEDS: LEVOTHYROXINE 0.05 MG TAB (50 MCG) PO SCH (06:33)
[2016-03-28] MEDS: FAMOTIDINE 20 MG TAB PO SCH ×2 (06:33→20:49)
[2016-03-28] MEDS: HEPARIN SOD (PORCINE) 5000 UNITS/ML VIAL SC SCH ×3 (06:33→21:13)
[2016-03-28] MEDS: MIRALAX *UNIT DOSE* 17GM PACKET PO SCH (06:34)
[2016-03-28 06:35] LABS: MEAN CORPUSCULAR HEMOGLOBIN 34.3 pg (27.0-33.0); MEAN CORPUSCULAR HGB CONC 33.7 g/dl (32.0-36.5); MEAN CORPUSCULAR VOLUME 101.7 fl (80.0-96.0); RED CELL DISTRIBUTION WIDTH 12.1 % (11.5-14.5); WHITE BLOOD COUNT 4.7 K/mm3 (4.0-10.0)
[2016-03-28 06:42] LABS: CALCIUM LEVEL 8.4 MG/DL (8.8-10.2); CREATININE FOR GFR 3.16 MG/DL (0.55-1.02); GLOMERULAR FILTRATION RATE 15.4 (>39); POTASSIUM SERUM 3.7 MEQ/L (3.5-5.1)
[2016-03-28] MEDS: ADVAIR DISKUS 250/50 INH PWD INH SCH ×2 (08:14→20:00)
[2016-03-28] MEDS: amLODIPine 10 MG TAB PO SCH (08:47)
[2016-03-28] MEDS: CHECK TO SEE IF PATIENT IS RECEIVING DIALYSIS TODAY AND REFER TO THE VANCOMYCIN ORDER XX SCH (09:00)
--- NOTE | 2016-03-28 10:59 | IPN ---
DATE: 03/28/2016 DATA Mrs. Vicente is seen this morning during hemodialysis on her bedside. She was admitted with shortness of breath and pneumonia. She is currently treated with IV antibiotics. She has a complaint of diarrhea today and does not feel well. She denies any chest pain, hemoptysis or dyspnea. She has no fever or chills. On physical exam, temperature 97.5 degrees Fahrenheit, heart rate 72 per minute and respiratory rate 20 per minute. Blood pressure 118/53 mmHg and oxygen saturation 90% on room air. Head is atraumatic. Ears, nose and throat are unremarkable. Lips are dry and there is no oral thrush or ulcers. Neck is supple and without any thyroid enlargement or jugular venous distention (JVD). Heart sounds are regular. Lungs have diminished breath sounds with bilateral basilar rhonchi. Abdomen soft and nontender. There is no palpable organomegaly. Extremities have no cyanosis or clubbing. AV fistula in her right arm is functioning and is currently being used for dialysis. Neurologically, she is awake, alert and oriented times 3. She has no focal neurological deficits. Today's labs show WBC count 4.7, hemoglobin 10.4 and hematocrit 30.9. Platelets 277. Sodium 136 and potassium 3.7. BUN 32 and creatinine 3.16. PROBLEMS: 1. End-stage renal disease. The patient is currently being dialyzed. She is tolerating her dialysis treatment well. Her electrolytes are within normal range and volume status is well-compensated. 2. Pneumonia. The patient is improving clinically and remains on IV antibiotics and bronchodilator nebulizer treatment. 3. Diarrhea. This is new and probably related to antibiotic treatment and stool softeners. Her stool softener is being stopped. She did not receive any MiraLax. We will check her stool for Clostridium difficile.
[2016-03-28] MEDS ORDERED: LIDOCAINE 1% SDV 5 ML VIAL SQ ONE (11:00)
[2016-03-28] MEDS ORDERED: HEPARIN 1,000 UNITS/ML 10ML VIAL (FOR RADIOLOGY& DIALYSIS ONLY) XX ONE (11:00)
[2016-03-28 14:00] VITALS: BP 128/58
[2016-03-28] MEDS: PERCOCET 5MG/325MG TAB PO PRN (14:35)
--- NOTE | 2016-03-28 16:10 | IPNPDOC ---
Text Note Date of Service The patient was seen on 03/28/16 at 16:08. NOTE Subjective: Pt denies any complaints. No acute changes overnight. SOB has improved. Objective: Vitals: (see below) General: No acute distress, laying comfortably in bed. HEENT: Moist mucous membranes. Neck: No JVD or lymphadenopathy. Cardiac: RRR Pulm: Clear to auscultation b/l. No wheezing, rhonchi. Abd: NT/ND + BS. Ext: No edema or cyanosis. RUE AVF + bruit. Labs (see below) Images: CT Chest 03/25/16 IMPRESSION: 1. Nodular infiltrates in the superior segment of the right lower lobe. It is uncertain if this represents bronchopneumonic infiltrate or soft tissue nodules. Recommend follow-up CT at 3, 9 and 24 months, to establish two-year stability or resolution. 2. Mild groundglass infiltrates in the right middle and left lower lobes. 3. Aneurysms of the ascending aorta and left subclavian artery. The acuity of these aneurysms is uncertain without prior studies for comparison, though the presence of peripheral mural calcification suggests nonacute character. Dissection is not excluded without contrast. 4. Moderate hiatal hernia. Assessment/Plan 1. ?HCAP vs Strep. Pneumonia - patient does have sputum culture suture positive for Klebsiella pneumonia. One blood culture was contaminated, so we will d/c the daptomycin. Repeat blood culture negative thus far. Cont Rocephin. Trend CRP and WBCs. Afebrile. CT chest (see above). 2. End-stage disease on hemodialysis Friday//Friday. 3. Ascending aortic aneurysm- no prior CTs to compare. Patient will need follow- up with Dr. Galeana outpatient. 4. COPD- stable, continue nebs 5. Hypothyroidism- continue Synthroid 6. Hyperlipidemia- continue statin 7. Restless leg syndrome- continue ropinirole 8. Fibromyalgia 9. Depression- continue citalopram 10. Hiatal hernia/GERD on famotidine DVT prophy: Heparin subcutaneous Plan to discharge in the next 24 hours. VS,Fishbone, I+O VS, Fishbone, I+O Laboratory Tests 03/28/16 06:04 Calcium Level 8.4 L, Red Blood Count 3.04 L, Mean Corpuscular Volume 101.7 H, Mean Corpuscular Hemoglobin 34.3 H, Mean Corpuscular Hemoglobin Concent 33.7, Red Cell Distribution Width 12.1 Vital Signs Date Time Temp Pulse Resp B/P Pulse Ox O2 Delivery O2 Flow Rate FiO2 03/28/16 15:12 18 03/28/16 14:00 97.3 76 128/58 95 03/28/16 09:00 Room Air 03/26/16 07:54 2.0 I&O- Last 24 Hours up to 6 AM 03/28/16 06:00 Intake Total 1260 ml Output Total 100 ml Balance 1160 ml ISAAC FARFAN MD Mar 28, 2016 16:10
[2016-03-28] MEDS: CitaloPRAM (CeleXA) 20 MG TAB PO SCH (20:48)
[2016-03-28] MEDS: PRAMIPEXOLE (MIRAPEX) 0.125 MG TAB PO SCH (20:49)
[2016-03-28] MEDS: CINACALCET 30 MG TAB (SENSIPAR) PO SCH (20:49)
[2016-03-28 22:00] VITALS: BP 111/52
[2016-03-29] MEDS: PERCOCET 5MG/325MG TAB PO PRN ×2 (00:54→22:37)
[2016-03-29] MEDS: IPRATROPIUM 0.5MG/ALBUTEROL 2.5MG INH SOL UD 3ML (DUONEB)(J7620) NEB SCH ×6 (02:46→20:00)
[2016-03-29] MEDS: HEPARIN SOD (PORCINE) 5000 UNITS/ML VIAL SC SCH ×3 (05:39→21:12)
[2016-03-29] MEDS: LEVOTHYROXINE 0.05 MG TAB (50 MCG) PO SCH (05:39)
[2016-03-29 06:00] VITALS: BP 107/56
[2016-03-29] MEDS: amLODIPine 10 MG TAB PO SCH (07:26)
[2016-03-29 07:31] LABS: MEAN CORPUSCULAR HGB CONC 32.3 g/dl (32.0-36.5); MEAN CORPUSCULAR VOLUME 102.3 fl (80.0-96.0); RED CELL DISTRIBUTION WIDTH 13.1 % (11.5-14.5)
[2016-03-29] MEDS: ADVAIR DISKUS 250/50 INH PWD INH SCH ×2 (08:31→20:47)
[2016-03-29 08:55] LABS: CALCIUM LEVEL 8.7 MG/DL (8.8-10.2); CREATININE FOR GFR 2.66 MG/DL (0.55-1.02); GLOMERULAR FILTRATION RATE 18.8 (>39); POTASSIUM SERUM 4.3 MEQ/L (3.5-5.1)
[2016-03-29] MEDS: CHECK TO SEE IF PATIENT IS RECEIVING DIALYSIS TODAY AND REFER TO THE VANCOMYCIN ORDER XX SCH (09:00)
[2016-03-29] MEDS ORDERED: DOCUSATE SODIUM 100 MG CAP PO PRN (09:00)
[2016-03-29] MEDS: FAMOTIDINE 20 MG TAB PO SCH ×2 (09:52→21:12)
[2016-03-29] MEDS: rOPINIRole 1MG TAB PO SCH ×2 (09:53→21:12)
--- NOTE | 2016-03-29 09:54 | REP ---
Chest x-ray: Two views. History: Shortness of breath. Pneumonia. Comparison chest x-ray March 23, 2016. Findings: There is marked hyperinflation. A large hiatal hernia is noted. Discoid atelectasis is seen in the right base on today's exam and linear fibrosis is again seen in the left base. The right base linear change is new. No infiltrate is seen. No free pleural effusion is noted. The aorta is calcific and ectatic as well as tortuous. There is a rim calcified mass along the left mediastinum above the aorta consistent with a left subclavian artery aneurysm. This is confirmed on CT study from March 23, 2016. Impression: 1. Large hiatal hernia, hyperinflation. 2. Linear fibrosis left base and new discoid atelectasis right base. 3. Mild cardiomegaly. 4. Left subclavian artery aneurysm 3.5 cm in diameter unchanged. Signed by Arturo Gray MD 03/29/2016 01:42 P
[2016-03-29] MEDS: LACTOBACILLUS ACIDOPHILUS CAP (BACID) PO SCH (11:20)
--- NOTE | 2016-03-29 13:19 | IPNPDOC ---
Date of Service/Time Mar 23, 2016 at 20:11 Progress Note DATE OF ENCOUNTER: 03/29/16 SUBJECTIVE: Ms. Vicente was seen this morning at bedside. No acute overnight issues. Patient had hemodialysis yesterday which she tolerated well. No lightheadedness or dizziness. Blood pressure stable. 1500ml was removed. She reported some shortness of breath this morning. No chest pain. No fevers or chills. No nausea, vomiting, abdominal pain or diarrhea. Appetite is improved. OBJECTIVE: Vital Signs Date Time Temp Pulse Resp B/P Pulse Ox O2 Delivery O2 Flow Rate FiO2 03/29/16 06:00 98.7 67 20 107/56 93 Room Air I&O- Last 24 Hours up to 6 AM 03/29/16 06:00 Intake Total 1130 ml Output Total 1500 ml Balance -370 ml GENERAL: The patient is alert and oriented. In no acute distress. HEENT: Normocephalic, atraumatic. Extraocular muscles intact. Moist mucosa. NECK: Supple. Jugular pulsations are not elevated. CHEST: Symmetric with no use of accessory muscles. HEART: Positive S1, S2. Regular rate and rhythm. Positive for systolic ejection murmur. LUNGS: Good air movement bilaterally. Relatively clear to auscultation bilaterally. ABDOMEN: Soft. Nontender, nondistended. Bowel sounds present. EXTREMITIES: No cyanosis or lower extremity edema. Positive pedal pulses bilaterally. Has right arm fistula. NEUROLOGIC: No focal deficits. LABORATORY DATA: 03/29/16 07:13 Red Blood Count 3.23 L, Mean Corpuscular Volume 102.3 H, Mean Corpuscular Hemoglobin 33.0, Mean Corpuscular Hemoglobin Concentration 32.3, Red Cell Distribution Width 13.1 03/29/16 08:00 Calcium Level 8.7 L, Anion Gap 9, C-Reactive Protein, Quantitative 6.69H, Glomerular Filtration Rate 18.8L, Total Creatine Kinase 153 ASSESSMENT AND PLAN: 1. End-stage renal disease. The patient received hemodialysis yesterday where 1500ml was removed. She tolerated it well. Continue with regular schedule of Friday, and Friday. 2. Pneumonia. The patient remains on antibiotics. Repeat chest x-ray was ordered this morning to evaluate infiltrate. 3. Anemia. Her hemoglobin is stable. She receives Aranesp as needed during hemodialysis. 4. Congestive heart failure. Volume status seems to be fairly compensated. We will continue to correct with hemodialysis. 5. Hypertension. Blood pressure stable. Continue Norvasc. 6. Secondary hyperparathyroidism. Continue Sensipar. DISPOSITION: Patient needs to perform stairs to be cleared for discharge home by physical therapy. From a renal standpoint, she is stable and can continue her regular scheduled hemodialysis. GME ATTESTATION GME ATTESTATION My preceptor for this patient encounter was physically present in the building during the encounter and was fully available. As needed, all aspects of the patient interview, examination, medical decision making process, and medical care plan development were reviewed and approved by the preceptor. Preceptor is aware and concurs with the plan as stated in the body of this note and will attest to such by his/her cosignature. YESI MALIK DO Mar 29, 2016 13:19
[2016-03-29 14:00] VITALS: BP 124/58
--- NOTE | 2016-03-29 14:08 | IPNPDOC ---
Text Note Date of Service The patient was seen on 03/29/16 at 14:06. NOTE Subjective: Pt states she has GARCIA while ambulating down the [place]. Objective: Vitals: (see below) General: No acute distress, laying comfortably in bed. HEENT: Moist mucous membranes. Neck: No JVD or lymphadenopathy. Cardiac: RRR Pulm: Mild exp wheezing b/l. No rhonchi. Abd: NT/ND + BS. Ext: No edema or cyanosis. RUE AVF + bruit. Labs (see below) Images: CT Chest 03/25/16 IMPRESSION: 1. Nodular infiltrates in the superior segment of the right lower lobe. It is uncertain if this represents bronchopneumonic infiltrate or soft tissue nodules. Recommend follow-up CT at 3, 9 and 24 months, to establish two-year stability or resolution. 2. Mild groundglass infiltrates in the right middle and left lower lobes. 3. Aneurysms of the ascending aorta and left subclavian artery. The acuity of these aneurysms is uncertain without prior studies for comparison, though the presence of peripheral mural calcification suggests nonacute character. Dissection is not excluded without contrast. 4. Moderate hiatal hernia. Assessment/Plan 1. Klebsiella pneumonia. One blood culture was contaminated, so we will d/c the daptomycin. Repeat blood culture negative thus far. Cont Rocephin. Trend CRP and WBCs. Afebrile. CT chest (see above). 2. End-stage disease on hemodialysis Friday//Friday. 3. Ascending aortic aneurysm- no prior CTs to compare. Patient will need follow- up with Dr. Galeana outpatient. 4. COPD- stable, continue nebs. Prednisone added. 5. Hypothyroidism- continue Synthroid 6. Hyperlipidemia- continue statin 7. Restless leg syndrome- continue ropinirole 8. Fibromyalgia 9. Depression- continue citalopram 10. Hiatal hernia/GERD on famotidine DVT prophy: Heparin subcutaneous Plan to discharge in the next 24 hours is respiratory status improves. VS,Fishbone, I+O VS, Fishbone, I+O Laboratory Tests 03/29/16 07:13 Red Blood Count 3.23 L, Mean Corpuscular Volume 102.3 H, Mean Corpuscular Hemoglobin 33.0, Mean Corpuscular Hemoglobin Concent 32.3, Red Cell Distribution Width 13.1 03/29/16 08:00 Calcium Level 8.7 L Vital Signs Date Time Temp Pulse Resp B/P Pulse Ox O2 Delivery O2 Flow Rate FiO2 03/29/16 09:00 Room Air 03/29/16 06:00 98.7 67 20 107/56 93 03/26/16 07:54 2.0 I&O- Last 24 Hours up to 6 AM 03/29/16 06:00 Intake Total 1130 ml Output Total 1500 ml Balance -370 ml ISAAC FARFAN MD Mar 29, 2016 14:08
[2016-03-29] MEDS ORDERED: predniSONE 20 MG TAB PO ONE (14:30)
[2016-03-29] MEDS: PRAMIPEXOLE (MIRAPEX) 0.125 MG TAB PO SCH (21:12)
[2016-03-29] MEDS: CitaloPRAM (CeleXA) 20 MG TAB PO SCH (21:12)
[2016-03-29] MEDS: CINACALCET 30 MG TAB (SENSIPAR) PO SCH (21:12)
[2016-03-29 22:00] VITALS: BP 127/56
[2016-03-30 00:08] LABS: ORGANISM ID Not indicated. (.); SPECIMEN SOURCE Urine (.)
[2016-03-30] MEDS: IPRATROPIUM 0.5MG/ALBUTEROL 2.5MG INH SOL UD 3ML (DUONEB)(J7620) NEB SCH ×7 (00:17→23:07)
[2016-03-30] MEDS: cefTRIAXone SOD 2 GM in D5W MINI-BAG PLUS 50 ML IV SCH (00:42)
[2016-03-30 05:59] LABS: MEAN CORPUSCULAR HEMOGLOBIN 33.5 pg (27.0-33.0); MEAN CORPUSCULAR HGB CONC 32.3 g/dl (32.0-36.5); MEAN CORPUSCULAR VOLUME 103.9 fl (80.0-96.0); RED CELL DISTRIBUTION WIDTH 12.2 % (11.5-14.5); WHITE BLOOD COUNT 5.2 K/mm3 (4.0-10.0)
[2016-03-30 06:00] VITALS: BP 127/71
[2016-03-30 06:05] LABS: CALCIUM LEVEL 8.6 MG/DL (8.8-10.2); CREATININE FOR GFR 3.27 MG/DL (0.55-1.02); GLOMERULAR FILTRATION RATE 14.8 (>39); POTASSIUM SERUM 4.1 MEQ/L (3.5-5.1)
[2016-03-30] MEDS: LEVOTHYROXINE 0.05 MG TAB (50 MCG) PO SCH (06:07)
[2016-03-30] MEDS: HEPARIN SOD (PORCINE) 5000 UNITS/ML VIAL SC SCH ×3 (06:07→21:09)
[2016-03-30] MEDS: rOPINIRole 1MG TAB PO SCH ×2 (06:08→21:08)
[2016-03-30] MEDS: LACTOBACILLUS ACIDOPHILUS CAP (BACID) PO SCH (06:08)
[2016-03-30] MEDS: ACETAMINOPHEN TAB 650MG DOSE (2X325MG) PO PRN (06:08)
[2016-03-30] MEDS: FAMOTIDINE 20 MG TAB PO SCH ×2 (06:08→21:08)
[2016-03-30] MEDS: PERCOCET 5MG/325MG TAB PO PRN ×2 (07:33→21:09)
[2016-03-30] MEDS: predniSONE 20 MG TAB PO SCH (07:33)
[2016-03-30] MEDS: amLODIPine 10 MG TAB PO SCH (07:34)
[2016-03-30] MEDS: CHECK TO SEE IF PATIENT IS RECEIVING DIALYSIS TODAY AND REFER TO THE VANCOMYCIN ORDER XX SCH (09:00)
[2016-03-30] MEDS: ADVAIR DISKUS 250/50 INH PWD INH SCH ×2 (09:00→20:11)
[2016-03-30 14:00] VITALS: BP 136/63
--- NOTE | 2016-03-30 14:13 | IPNPDOC ---
Text Note Date of Service The patient was seen on 03/30/16 at 14:12. NOTE Subjective: Pt states her SOB has significantly improved. Objective: Vitals: (see below) General: No acute distress, laying comfortably in bed. HEENT: Moist mucous membranes. Neck: No JVD or lymphadenopathy. Cardiac: RRR Pulm: Mild exp wheezing b/l. No rhonchi. Abd: NT/ND + BS. Ext: No edema or cyanosis. RUE AVF + bruit. Labs (see below) Images: CT Chest 03/25/16 IMPRESSION: 1. Nodular infiltrates in the superior segment of the right lower lobe. It is uncertain if this represents bronchopneumonic infiltrate or soft tissue nodules. Recommend follow-up CT at 3, 9 and 24 months, to establish two-year stability or resolution. 2. Mild groundglass infiltrates in the right middle and left lower lobes. 3. Aneurysms of the ascending aorta and left subclavian artery. The acuity of these aneurysms is uncertain without prior studies for comparison, though the presence of peripheral mural calcification suggests nonacute character. Dissection is not excluded without contrast. 4. Moderate hiatal hernia. Assessment/Plan 1. Klebsiella pneumonia. One blood culture was contaminated, so we will d/c the daptomycin. Repeat blood culture negative thus far. Cont Rocephin. Trend CRP and WBCs. Afebrile. CT chest (see above). Will continue to ambulate patient while her respiratory status is improving. 2. End-stage disease on hemodialysis Friday//Friday. Had HD today and tolerated it well. 3. Ascending aortic aneurysm- no prior CTs to compare. Patient will need follow- up with Dr. Galeana outpatient. 4. COPD- stable, continue nebs. Prednisone added. 5. Hypothyroidism- continue Synthroid 6. Hyperlipidemia- continue statin 7. Restless leg syndrome- continue ropinirole 8. Fibromyalgia 9. Depression- continue citalopram 10. Hiatal hernia/GERD on famotidine DVT prophy: Heparin subcutaneous Plan to discharge in the next 24 hours. VS,Fishbone, I+O VS, Fishbone, I+O Laboratory Tests 03/30/16 05:09 Calcium Level 8.6 L, Red Blood Count 3.25 L, Mean Corpuscular Volume 103.9 H, Mean Corpuscular Hemoglobin 33.5 H, Mean Corpuscular Hemoglobin Concent 32.3, Red Cell Distribution Width 12.2 Vital Signs Date Time Temp Pulse Resp B/P Pulse Ox O2 Delivery O2 Flow Rate FiO2 03/30/16 08:03 18 Room Air 03/30/16 06:00 97.2 85 127/71 93 2.0 I&O- Last 24 Hours up to 6 AM 03/30/16 06:00 Intake Total 870 ml Output Total 400 ml Balance 470 ml ISAAC FARFAN MD Mar 30, 2016 14:13
--- NOTE | 2016-03-30 14:23 | IPN ---
DATE: 03/30/2016 Mrs. Vicente is seen this morning on her bedside during hemodialysis. She is feeling much better today. She reports that she had an episode of sudden acute shortness of breath yesterday, which resolved. She denies any fever or chills. She denies any hemoptysis or pleuritic type of chest pain. Otherwise her review of systems has been unremarkable. She reports improved appetite and denies any nausea or vomiting. Her diarrhea has also improved. PHYSICAL EXAMINATION: Temperature 97.2 degrees Fahrenheit, heart rate 85 per minute and respiratory rate 18 per minute. Blood pressure 127/70 mmHg and oxygen saturation 93% on room air. Her head is atraumatic. Ears, nose and throat are unremarkable. Neck is supple and without jugular venous distention (JVD) or thyroid enlargement. Trachea is midline. Heart sounds are regular. Lungs with a few basilar creps. Abdomen: Soft and nontender and without any palpable organomegaly. Bowel sounds are normal. Extremities have no cyanosis or clubbing. Right arm AV fistula is patent. Neurologically, she is awake, alert and oriented times three. She has no focal deficit. Today's labs show WBC count 5.2, hemoglobin 10.9 and hematocrit 33. Sodium 132 and potassium 4.1. BUN 31 and creatinine 3.27. PROBLEMS: 1. End-stage renal disease. The patient is currently being dialyzed. Her electrolytes are stable and volume status is well compensated. She is tolerating her dialysis treatment very well. We are going to try to remove about 1.5 liters of fluid as tolerated. 2. Pneumonia. The patient is clinically improved significantly. At present, she is feeling well, and I recommend to continue with oral antibiotic for a few more days. 3. Anemia. Her anemia has been stable and does not need any intervention at this point. 4. Diarrhea. Her diarrhea has resolved and stool for Clostridium difficile (C diff) is still pending. 5. Disposition. The patient seems to be doing very well. I feel that she can probably be discharged to home with the next 24 hours. MTDD
[2016-03-30] MEDS: CINACALCET 30 MG TAB (SENSIPAR) PO SCH (21:08)
[2016-03-30] MEDS: CitaloPRAM (CeleXA) 20 MG TAB PO SCH (21:08)
[2016-03-30] MEDS: PRAMIPEXOLE (MIRAPEX) 0.125 MG TAB PO SCH (21:08)
[2016-03-30 22:00] VITALS: BP 118/57
[2016-03-31] MEDS: cefTRIAXone SOD 2 GM in D5W MINI-BAG PLUS 50 ML IV SCH (00:36)
[2016-03-31] MEDS: IPRATROPIUM 0.5MG/ALBUTEROL 2.5MG INH SOL UD 3ML (DUONEB)(J7620) NEB SCH ×3 (03:17→11:13)
[2016-03-31] MEDS: LEVOTHYROXINE 0.05 MG TAB (50 MCG) PO SCH (05:30)
[2016-03-31] MEDS: HEPARIN SOD (PORCINE) 5000 UNITS/ML VIAL SC SCH ×2 (05:30→14:00)
[2016-03-31] MEDS: ACETAMINOPHEN TAB 650MG DOSE (2X325MG) PO PRN (05:31)
[2016-03-31 06:00] VITALS: BP 117/56
[2016-03-31] MEDS: ADVAIR DISKUS 250/50 INH PWD INH SCH (07:42)
[2016-03-31] MEDS: CHECK TO SEE IF PATIENT IS RECEIVING DIALYSIS TODAY AND REFER TO THE VANCOMYCIN ORDER XX SCH (09:00)
[2016-03-31 09:24] LABS: MEAN CORPUSCULAR HEMOGLOBIN 34.9 pg (27.0-33.0); MEAN CORPUSCULAR HGB CONC 33.6 g/dl (32.0-36.5); MEAN CORPUSCULAR VOLUME 103.8 fl (80.0-96.0); RED CELL DISTRIBUTION WIDTH 12.2 % (11.5-14.5); WHITE BLOOD COUNT 8.8 K/mm3 (4.0-10.0)
[2016-03-31] MEDS: LACTOBACILLUS ACIDOPHILUS CAP (BACID) PO SCH (09:37)
[2016-03-31 09:38] VITALS: BP 126/53
[2016-03-31] MEDS: predniSONE 20 MG TAB PO SCH (09:38)
[2016-03-31] MEDS: amLODIPine 10 MG TAB PO SCH (09:38)
[2016-03-31] MEDS: rOPINIRole 1MG TAB PO SCH (09:38)
[2016-03-31] MEDS: FAMOTIDINE 20 MG TAB PO SCH (09:39)
[2016-03-31 09:55] LABS: CALCIUM LEVEL 8.8 MG/DL (8.8-10.2); CREATININE FOR GFR 2.75 MG/DL (0.55-1.02); GLOMERULAR FILTRATION RATE 18.1 (>39); MAGNESIUM LEVEL 1.9 MG/DL (1.8-2.4); POTASSIUM SERUM 4.7 MEQ/L (3.5-5.1)
--- NOTE | 2016-03-31 13:00 | IPN ---
DATE: 03/31/2016 Mrs. Vicente is seen this morning on her bedside. She is feeling better and denies any dyspnea or chest pain. She underwent hemodialysis yesterday which she tolerated very well. Her oral intake has improved and she reports good appetite. She has no nausea, vomiting or diarrhea. PHYSICAL EXAMINATION: Temperature 96.8 degrees Fahrenheit, heart rate 70 per minute and respiratory rate 20 per minute. Blood pressure 126/53 mmHg and oxygen saturation 93% on room air. Head is atraumatic. Ears, nose and throat are unremarkable. Pupils are equal and reactive to light and sclerae is anicteric. Neck is supple and without any jugular venous distention (JVD) or thyroid enlargement. Trachea is midline. Heart sounds are regular and lungs sound clear to auscultation with only moderate bilateral air entry. Abdomen soft and nontender. There is no palpable organomegaly. Extremities have no cyanosis or clubbing. Skin has no rash or ulcers. Neurologically she is awake, alert and oriented times three. Today's labs show WBC count 8.8, hemoglobin 10.4 and hematocrit 31.0. Sodium 136 and potassium 4.7. BUN 31 and creatinine 2.75. Her C-reactive protein has come down to 2.62. PROBLEMS: 1. Shortness of breath with bilateral infiltrates. The patient is improved significantly. Her C-reactive protein has come down to 2.62 from 23.9 on admission. I feel that she can be switched to oral antibiotics and discharged to home. She has been on ceftriaxone since admission. She has also been started on prednisone 40 mg daily which should be tapered over next few days. 2. End-stage renal disease. The patient was dialyzed yesterday and her next dialysis will be scheduled for 04/02/2016, which is her regular dialysis day. She will be dialyzed at outpatient dialysis clinic. 3. Hypertension. Blood pressure control is optimal on current antihypertensives which will be continued. 4. Anemia. Her anemia is stable and does not need any specific intervention at present. 5. Shortness of breath. Her dyspnea was mostly related to bilateral pneumonia which has improved. Her volume status is well-compensated. DISPOSITION: From a renal standpoint, the patient can be discharged to home and she will be followed up at outpatient dialysis clinic.
[2016-03-31] MEDS ORDERED: DOXY-278 PO (13:15)
[2016-03-31] MEDS ORDERED: PRED10TA PO (13:18)
--- NOTE | 2016-03-31 15:19 | DS.PDOC ---
Discharge Summary General Date of Admission Mar 23, 2016 at 23:25 Date of Discharge Mar 31, 2016 at 15:00 Attending Physician: ISAAC FARFAN MD Specialist/Consultants Involve: Tacho Castorena MD Discharge Summary PROCEDURES PERFORMED DURING STAY: None. COMPLICATIONS/CHIEF COMPLAINT: Pneumonia ADMISSION DIAGNOSES/DISCHARGE DIAGNOSES: 1. Klebsiella pneumonia 2. End-stage renal disease on hemodialysis 3. Ascending aortic aneurysm- only to follow-up with Dr. Galeana outpatient 4. COPD 5. Hypothyroidism 6. Hyperlipidemia 7. Restless leg syndrome 8. Fibromyalgia 9. Depression 10. Hiatal hernia/GERD HISTORY OF PRESENT ILLNESS/HOSPITAL COURSE: This is a 70-year-old female with an extensive past history including end-stage renal disease and COPD who presents complaining of fevers, chills, fatigue, productive cough for one week prior to presentation. Patient states that her great grandchildren have had flulike symptoms. She notes that she's been having generalized weakness over the past week. On admission patient was initially admitted for community acquired pneumonia with cultures later to be positive for Klebsiella pneumonia in the sputum. Antibiotics have been tailored to culture sensitivities. Patient tolerated therapy well. During her course of hospitalization patient also received hemodialysis. She was initially dyspneic on ambulation however with a course of steroids in addition to her antibiotics, patient's dyspnea has significantly improved. She is currently hemodynamically stable for discharge. DISCHARGE MEDICATIONS: Please see below. ALLERGIES: Please see below. PHYSICAL EXAMINATION ON DISCHARGE: Vitals: (see below) General: No acute distress, laying comfortably in bed. HEENT: Moist mucous membranes. Neck: No JVD or lymphadenopathy. Cardiac: RRR Pulm: Mild exp wheezing b/l. No rhonchi. Abd: NT/ND + BS. Ext: No edema or cyanosis. RUE AVF + bruit. LABORATORY DATA: Please see below. IMAGING: CT Chest 03/25/16 IMPRESSION: 1. Nodular infiltrates in the superior segment of the right lower lobe. It is uncertain if this represents bronchopneumonic infiltrate or soft tissue nodules. Recommend follow-up CT at 3, 9 and 24 months, to establish two-year stability or resolution. 2. Mild groundglass infiltrates in the right middle and left lower lobes. 3. Aneurysms of the ascending aorta and left subclavian artery. The acuity of these aneurysms is uncertain without prior studies for comparison, though the presence of peripheral mural calcification suggests nonacute character. Dissection is not excluded without contrast. 4. Moderate hiatal hernia. VTE Prophylaxis ordered?: Yes DISCHARGE CONDITION: Stable DISPOSITION: 01 Home, Self-Care ACTIVITY: As tolerated DIET: Low-sodium DISCHARGE PLAN AND INSTRUCTIONS: 1. Follow-up with PCP in 1-2 weeks. Follow-up Dr. Castorena for renal dialysis. TIME SPENT ON DISCHARGE: Greater than 30 minutes. Vital Signs/I&Os Vital Signs Date Time Temp Pulse Resp B/P Pulse Ox O2 Delivery O2 Flow Rate FiO2 03/31/16 09:38 71 126/53 03/31/16 09:00 Room Air 03/31/16 06:00 96.8 20 93 03/30/16 06:00 2.0 I&O- Last 24 Hours up to 6 AM 03/31/16 05:59 Intake Total 1560 ml Output Total 1600 ml Balance -40 ml Laboratory Data Labs 24H Laboratory Tests 2 03/31/16 09:14: Anion Gap 8, C-Reactive Protein, Quantitative 2.62H, Blood Urea Nitrogen 31H, Creatinine 2.75H, Sodium Level 136, Potassium Level 4.7, Chloride Level 98, Carbon Dioxide Level 30, Calcium Level 8.8, Glomerular Filtration Rate 18.1L, Magnesium Level 1.9 CBC/BMP Laboratory Tests 03/31/16 09:14 Calcium Level 8.8, Red Blood Count 2.99 L, Mean Corpuscular Volume 103.8 H, Mean Corpuscular Hemoglobin 34.9 H, Mean Corpuscular Hemoglobin Concent 33.6, Red Cell Distribution Width 12.2 Microbiology Microbiology 03/25/16 Blood Culture - Final, Complete NO GROWTH AFTER 5 DAYS 03/25/16 Blood Culture - Final, Complete NO GROWTH AFTER 5 DAYS 03/23/16 Blood Culture - Final, Complete Micrococcus Luteus 03/23/16 Blood Culture - Final, Complete NO GROWTH AFTER 5 DAYS 03/28/16 Clostridium difficile (PCR), Ordered Pending 03/25/16 Gram Stain - Final, Complete 03/25/16 Sputum Culture - Final, Complete Klebsiella Pneumoniae 03/23/16 Influenza Virus Type A Antigen - Final, Complete 03/23/16 Influenza Virus Type B Antigen - Final, Complete Medications Scheduled (Doxycycline) 100 Mg Cap 100 MG PO BID Amlodipine Besylate (Amlodipine Besylate) 10 Mg Tab 10 MG PO ASDIRECTED takes every day except dialysis days Atorvastatin Calcium (Lipitor) 20 Mg Tab 20 MG PO QHS Cinacalcet Hydrochloride (Sensipar) 30 Mg Tab 30 MG PO QHS Citalopram Hydrobromide (Citalopram Hydrobromide) 40 Mg Tab 40 MG PO QHS Levothyroxine Sodium (Synthroid) 50 Mcg Tab 50 MCG PO DAILY Pramipexole Dihydrochloride (Mirapex) 0.125 Mg Tab 0.125 MG PO QHS Prednisone (Prednisone) 10 Mg Tab 10 MG PO ASDIRECTED Ranitidine HCl (Zantac) 150 Mg Tab 1 TAB PO BID Ropinirole Hydrochloride (Ropinirole HCl) 2 Mg Tab 2 MG PO BID Salmeterol/Fluticasone (Advair Diskus 250-50 Mcg/Dose) 14 Puff/Inhaler Aerp 1 PUFF INH BID Scheduled PRN Albuterol Sulfate (Proair Hfa) 108 Mcg/Act Aer 2 PUFFS INH QID PRN PRN SHORTNESS OF BREATH Cyclobenzaprine HCl (Cyclobenzaprine HCl) 10 Mg Tab 10 MG PO PRN PRN PRN MUSCLE SPASMS Allergies Coded Allergies: Vancomycin (Verified Allergy, Intermediate, throat and chest started getting tight, 03/25/16) Captopril (Unverified Allergy, Unknown, HIVES, 10/14/15) Fish-derived Products (Unverified Allergy, Unknown, 10/14/15) Penicillins (Unverified Allergy, Unknown, HIVES, 10/14/15) ISAAC FARFAN MD Mar 31, 2016 15:19
== END 2016-03-31 15:00 | disposition home health service (06) | DRG 177 ==
LOC: M ED 20:11 → M ED INP 23:25 → M MSPAV 03-24 01:19
PROVIDERS: ADMIT Internal Medicine; ATTEND Internal Medicine
DX: J15.0 Pneumonia due to Klebsiella pneumoniae (principal); N18.6 End stage renal disease; N25.81 Secondary hyperparathyroidism of renal origin; K44.9 Diaphragmatic hernia without obstruction or gangrene; J44.9 Chronic obstructive pulmonary disease, unspecified; E78.5 Hyperlipidemia, unspecified; F32.9 Major depressive disorder, single episode, unspecified; K21.9 Gastro-esophageal reflux disease without esophagitis; M79.7 Fibromyalgia; G25.81 Restless legs syndrome; I71.4 Abdominal aortic aneurysm, without rupture; I72.8 Aneurysm of other specified arteries; Z79.899 Other long term (current) drug therapy; Z88.1 Allergy status to other antibiotic agents; Z88.0 Allergy status to penicillin; Z88.8 Allergy status to other drugs, medicaments and biological substances; E03.9 Hypothyroidism, unspecified; Z87.891 Personal history of nicotine dependence; Z80.52 Family history of malignant neoplasm of bladder; Z80.1 Family history of malignant neoplasm of trachea, bronchus and lung; Z80.6 Family history of leukemia; Z91.013 Allergy to seafood; E87.6 Hypokalemia; D64.9 Anemia, unspecified; I50.9 Heart failure, unspecified; R19.7 Diarrhea, unspecified

== ENCOUNTER → 2016-03-23 | Outpatient (CLI) | payer MEDICARE, OTHER ==
[~2016-03-23] MED LIST: ADV250INH INH; AMLO10TA2 PO; CINA30TA PO; CITA40TA4 PO; CYCL10TA PO; HYDR10TAB PO; LEVO50TA5 PO; LINE60TAB PO; LIPI20TA PO; MIRA0.12 PO; PANT40TA2 PO; PROA1AER INH; ROPI2TAB PO; TRAM50TA2 PO; VICO5TAB16 PO; ZANT1TAB PO
--- NOTE | 2016-03-24 06:44 | REP ---
Chest x-ray: Two views. History: Shortness of breath. Cold symptoms. Comparison chest x-ray October 14, 2015. Findings: There is a [id number] size hiatal hernia again noted behind the heart. The lungs are somewhat hyperinflated but free of infiltrate. Pleural angles are sharp. Mild cardiomegaly is again noted. There is some plate-like atelectasis or linear fibrosis in the left base unchanged. No acute infiltrate is seen. There is a rounded density above the aortic arch in the left superior mediastinum just below the thoracic inlet. This is unchanged from comparison study. CT study from December of 2012 demonstrates that this is an aneurysm of the left subclavian artery just beyond its origin. It is unchanged from 2013. Impression: 1. No infiltrate seen. 2. Mild cardiomegaly. Hiatal hernia. 3. Linear fibrosis left base. 4. Stable left subclavian artery aneurysm. Signed by Arturo Gray MD 03/24/2016 07:36 A
== END ==
LOC: M WUC 17:11
PROVIDERS: ATTEND Physician Assistant
DX: I51.7 Cardiomegaly (principal); K44.9 Diaphragmatic hernia without obstruction or gangrene

== ENCOUNTER → 2016-04-08 | Outpatient (REF) | payer MEDICARE, OTHER ==
[~2016-04-08] MED LIST changes: +ADV250INH INH; +AMLO10TA2 PO; +CINA30TA PO; +DOXY-278 PO; +PRED10TA PO
== END ==
LOC: M LAB REF 16:38
PROVIDERS: ATTEND Internal Medicine
DX: J18.9 Pneumonia, unspecified organism (principal)

== ENCOUNTER → 2016-05-06 | Outpatient (REF) | payer MEDICARE, OTHER ==
[2016-05-06 13:47] LABS: PERCENT SATURATION 40.3 % (13.2-37.4)
== END ==
LOC: M LAB REF 12:14
PROVIDERS: ATTEND Internal Medicine
DX: D64.9 Anemia, unspecified (principal)

== ENCOUNTER → 2016-07-10 | Outpatient (REF) | payer MEDICARE, OTHER | LOC: M LAB REF 13:16 | PROVIDERS: ATTEND Internal Medicine | DX: I10 Essential (primary) hypertension (principal); D64.9 Anemia, unspecified ==

== ENCOUNTER → 2016-09-12 | Outpatient (CLI) | payer MEDICARE, BC, OTHER ==
[~2016-09-12] MED LIST changes: -PRED10TA PO; +PRED10TA2 PO; -PROA1AER INH; +PROAAER10 INH
--- NOTE | 2016-09-12 16:12 | REP ---
Clinical: COPD. CHF. Technique: PA and lateral. Comparison: 03/29/2016. Findings: Stable cardiomegaly and diffuse chronic interstitial changes are appreciated along with moderate hiatal hernia and rim calcified aortic arch aneurysm projecting over the medial left clavicle. No pleural effusion. No pneumothorax. No acute process identified. Skeletal structures demonstrate age-related degenerative change. Impression: Chronic stable changes. No obvious acute cardiopulmonary process. Signed by Keegan Melgar MD 09/12/2016 04:04 P
== END ==
LOC: M WUC 15:34
PROVIDERS: ATTEND Internal Medicine Nephrology
DX: J44.9 Chronic obstructive pulmonary disease, unspecified (principal); I50.32 Chronic diastolic (congestive) heart failure

== ENCOUNTER → 2016-11-06 | Outpatient (CLI) | payer MEDICARE, BC, OTHER ==
[2016-11-06 10:55] LABS: BASO % 0.6 % (0.0-1.0); EOS # 0.2 K/mm3 (0.0-0.50); EOS % 5.1 % (0.0-3.0); LARGE UNSTAINED CELL # 0.2 K/mm3 (0.0-0.4); LARGE UNSTAINED CELL % 4.4 % (0.0-4.0); LYMPH # 1.1 K/mm3 (1.5-4.5); LYMPH % 25.7 % (24.0-44.0); MEAN CORPUSCULAR HEMOGLOBIN 35.3 pg (27.0-33.0); MEAN CORPUSCULAR HGB CONC 33.2 g/dl (32.0-36.5); MEAN CORPUSCULAR VOLUME 106.2 fl (80.0-96.0); MONO # 0.4 K/mm3 (0.0-0.8); MONO % 8.8 % (0.0-5.0); NEUTROPHILS # 2.4 K/mm3 (1.8-7.7); NEUTROPHILS % 55.4 % (36.0-66.0); PLATELET COUNT, AUTOMATED 206 k/mm3 (150-450); RED CELL DISTRIBUTION WIDTH 12.6 % (11.5-14.5); WHITE BLOOD COUNT 4.3 K/mm3 (4.0-10.0)
--- NOTE | 2016-11-06 11:46 | REP ---
CT STUDY OF THE CHEST WITH IV CONTRAST: HISTORY: Lung nodule. Comparison chest CT study without contrast March 23, 2016 showed nodular infiltrate pattern in the right lower lobe and ground-glass opacity infiltrates in the right middle lobe and left lower lobe. Comparison is made with chest x-ray from September 12, 2016. CT CONTRAST DOSE: 75 mL of Isovue 370 is administered. The patient is on dialysis. CT FINDINGS: There is a [id number] size hiatal hernia behind the heart. Aneurysms are again seen in the ascending aorta 5.6 cm, and in the left subclavian artery, 2.9 cm. These are felt to be unchanged. Extensive vascular calcification is noted. No hilar or mediastinal mass or adenopathy is observed. The previously noted nodular densities in the superior segment of the right lower lobe have resolved. There is some linear discoid atelectasis in the right lower lobe inferiorly and in the left lower lobe. No new infiltrate is seen. No new nodule is appreciated. IMPRESSION: Previously noted right lower lobe nodular densities have resolved consistent with inflammatory disease. There is bilateral lower lobe linear plate-like atelectasis. Stable aneurysmal dilation of the ascending aorta and stable left subclavian artery aneurysm. Signed by Arturo Gray MD 11/06/2016 03:21 P
[2016-11-11 14:11] LABS: A1A FOR PHENOTYPE 151 mg/dL (90-200); D001-IgE D pteronyssinus 3.21 kU/L (Class III); E001-IgE Cat Epith/Dander < 0.10 kU/L (Class 0); E005-IgE Dog Dander < 0.10 kU/L (Class 0); G002-IgE Bermuda Grass < 0.10 kU/L (Class 0); G008-IgE Kentucky Bluegrass < 0.10 kU/L (Class 0); M001-IgE Penicillium chrysogen < 0.10 kU/L (Class 0); M002 IgE Cladosporium herbaru < 0.10 kU/L (Class 0); M003 IgE Aspergillus fumigatu < 0.10 kU/L (Class 0); M006-IgE Alternaria alternata < 0.10 kU/L (Class 0); T001-IgE Maple/Box Elder < 0.10 kU/L (Class 0); T003-IgE Common Silver Birch < 0.10 kU/L (Class 0); T007-IgE Oak, White < 0.10 kU/L (Class 0); T008-IgE Elm, American < 0.10 kU/L (Class 0); T015-IgE Ash, White < 0.10 kU/L (Class 0); T041-IgE Hickory, White < 0.10 kU/L (Class 0); W001-IgE Ragweed, Short < 0.10 kU/L (Class 0); W009-IgE Plantain, English < 0.10 kU/L (Class 0); W014-IgE Pigweed, Rough < 0.10 kU/L (Class 0); W018-IgE Sheep Sorrel < 0.10 kU/L (Class 0)
== END ==
LOC: M LAB 09:09
PROVIDERS: ATTEND Internal Medicine Pulmonary Disease
DX: J98.11 Atelectasis (principal); J44.9 Chronic obstructive pulmonary disease, unspecified; R93.8 Abnormal findings on diagnostic imaging of other specified body structures; I71.2 Thoracic aortic aneurysm, without rupture; I72.8 Aneurysm of other specified arteries; J45.909 Unspecified asthma, uncomplicated

== ENCOUNTER → 2017-02-06 | Outpatient (CLI) | payer MEDICARE, BC, OTHER ==
--- NOTE | 2017-02-06 09:23 | REP ---
Clinical: Fracture. Trauma. Technique: AP and lateral views of the left foot. Findings: Age-related changes are appreciated. No definite acute fracture identified. Irregularity to the second through fifth fifth phalanges likely chronic and less likely related to acute injury. Surrounding soft tissues unremarkable. Impression: No obvious acute fracture dislocation. If the patient remains symptomatic consider repeat evaluation complete four view foot series. Signed by Keegan Melgar MD 02/06/2017 09:15 A
== END ==
LOC: M RAD 08:48
PROVIDERS: ATTEND Internal Medicine Nephrology
DX: S92.302A Fracture of unspecified metatarsal bone(s), left foot, initial encounter for closed fracture (principal); X58.XXXA Exposure to other specified factors, initial encounter; Y92.89 Other specified places as the place of occurrence of the external cause; Y99.9 Unspecified external cause status; Y93.9 Activity, unspecified

== ENCOUNTER 2017-03-24 16:56 | Inpatient (IN) | payer MEDICARE, BC, OTHER ==
[2017-03-24] MEDS: IPRATROPIUM 0.5MG/ALBUTEROL 2.5MG INH SOL UD 3ML (DUONEB)(J7620) NEB ×3 (19:57→19:58)
[2017-03-24 19:58] LABS: HEMATOCRIT 29.7 % (36.0-47.0); IMMATURE GRANULOCYTE % 0.5 % (0-0); LYMPH # 0.5 10^3/uL (1.5-4.5); LYMPH % 5.9 % (24.0-44.0); MEAN CORPUSCULAR HEMOGLOBIN 34.4 pg (27.0-33.0); MEAN CORPUSCULAR HGB CONC 33.7 g/dl (32.0-36.5); MEAN CORPUSCULAR VOLUME 102.1 fl (80.0-96.0); MONO # 0.3 10^3/uL (0.0-0.8); NEUTROPHILS # 7.2 10^3/uL (1.8-7.7); NEUTROPHILS % 89.6 % (36.0-66.0); PLATELET COUNT, AUTOMATED 186 10^3/uL (150-450); RED BLOOD COUNT 2.91 10^6/uL (4.00-5.40); RED CELL DISTRIBUTION WIDTH 11.8 % (11.5-14.5); VENOUS BASE EXCESS -0.7 (-2.0-2.0); VENOUS HCO3 22.9 MEQ/L (23.0-27.0); VENOUS O2 SATURATION 99.4 % (60.0-80.0); VENOUS PARTIAL PRESSURE CO2 33.8 mmHg (38.0-50.0); VENOUS PARTIAL PRESSURE O2 182.8 mmHg (30.0-50.0); VENOUS PH 7.448 UNITS (7.330-7.430); VENOUS TOTAL CO2 23.9 MEQ/L (24.0-28.0); WHITE BLOOD COUNT 8.1 10^3/uL (4.0-10.0)
[2017-03-24 20:12] LABS: LACTIC ACID SEPSIS PROTOCOL 1.7 MMOL/L (0.4-2.0)
[2017-03-24 20:13] LABS: ANION GAP 12 MEQ/L (8-16); BLOOD UREA NITROGEN 39 MG/DL (7-18); CALCIUM LEVEL 8.9 MG/DL (8.8-10.2); CARBON DIOXIDE LEVEL 24 MEQ/L (21-32); CHLORIDE LEVEL 100 MEQ/L (98-107); CPK CREATINE PHOSPHOKINASE 128 U/L (26-192); CREATININE FOR GFR 3.51 MG/DL (0.55-1.02); GLOMERULAR FILTRATION RATE 13.6 (>39); GLUCOSE, FASTING 175 MG/DL (83-110); POTASSIUM SERUM 3.6 MEQ/L (3.5-5.1); SODIUM LEVEL 136 MEQ/L (136-145); TROPONIN I 0.06 NG/ML (< 0.10)
[2017-03-24 20:14] LABS: CK-MB VALUE MASS 2.7 NG/ML (0.0-3.6); NT-PRO BNP 8639 PG/ML (<125)
[2017-03-24] MEDS: CEFTRIAXONE SOD 1 GM in APPROPRIATE DILUENT 1 EA IV (21:51)
[2017-03-24] MEDS: methylPREDNISolone INJ 40 MG/1 ML VIAL (J2920) IV (21:51)
[2017-03-24] MEDS: LevoFLOXacin IV 250 MG in APPROPRIATE DILUENT 1 EA IV (22:52)
[2017-03-24] MEDS: ATORVASTATIN 20 MG TAB PO (22:52)
[2017-03-25] MEDS: CINACALCET 30 MG TAB (SENSIPAR) PO ×3 (00:46→21:10)
[2017-03-25] MEDS: rOPINIRole 1MG TAB PO ×4 (00:46→21:11)
[2017-03-25] MEDS: IPRATROPIUM 0.5MG/ALBUTEROL 2.5MG INH SOL UD 3ML (DUONEB)(J7620) NEB ×6 (02:22→20:00)
[2017-03-25 06:18] LABS: BASO % 0.1 % (0.0-1.0); EOS % 0.1 % (0.0-3.0); HEMATOCRIT 30.1 % (36.0-47.0); HEMOGLOBIN 10.2 g/dl (12.0-16.0); IMMATURE GRANULOCYTE # 0.1 10^3/uL (0-0); IMMATURE GRANULOCYTE % 1.1 % (0-0); LYMPH # 0.5 10^3/uL (1.5-4.5); LYMPH % 4.9 % (24.0-44.0); MEAN CORPUSCULAR HEMOGLOBIN 34.2 pg (27.0-33.0); MEAN CORPUSCULAR HGB CONC 33.9 g/dl (32.0-36.5); MONO # 0.5 10^3/uL (0.0-0.8); MONO % 4.4 % (0.0-5.0); NEUTROPHILS # 9.1 10^3/uL (1.8-7.7); NEUTROPHILS % 89.4 % (36.0-66.0); PLATELET COUNT, AUTOMATED 192 10^3/uL (150-450); RED BLOOD COUNT 2.98 10^6/uL (4.00-5.40); RED CELL DISTRIBUTION WIDTH 11.9 % (11.5-14.5); WHITE BLOOD COUNT 10.2 10^3/uL (4.0-10.0)
[2017-03-25] MEDS: HEPARIN SOD (PORCINE) 5000 UNITS/ML VIAL SC ×3 (06:27→21:11)
[2017-03-25 06:32] LABS: ANION GAP 11 MEQ/L (8-16); BLOOD UREA NITROGEN 46 MG/DL (7-18); CALCIUM LEVEL 9.5 MG/DL (8.8-10.2); CARBON DIOXIDE LEVEL 24 MEQ/L (21-32); CHLORIDE LEVEL 99 MEQ/L (98-107); CREATININE FOR GFR 3.53 MG/DL (0.55-1.02); GLOMERULAR FILTRATION RATE 13.5 (>39); GLUCOSE, FASTING 150 MG/DL (83-110); POTASSIUM SERUM 3.5 MEQ/L (3.5-5.1); SODIUM LEVEL 134 MEQ/L (136-145)
[2017-03-25] MEDS: VENLAFAXINE **XR** 37.5 MG CAPSULE PO (08:25)
[2017-03-25] MEDS: predniSONE 20 MG TAB PO (08:25)
[2017-03-25] MEDS: PANTOPRAZOLE 40MG TAB (PROTONIX) PO (08:25)
[2017-03-25] MEDS: ACETAMINOPHEN TAB 650MG DOSE (2X325MG) PO (08:29)
[2017-03-25] MEDS: ADVAIR HFA 115/21MCG INHALER INH ×2 (08:52→21:50)
[2017-03-25] MEDS: TIOTROPIUM INHALER/CAPSULE (SPIRIVA) INH (09:00)
[2017-03-25] MEDS ORDERED: amLODIPine 10 MG TAB PO (09:00)
[2017-03-25] MEDS: LIDOCAINE 1% SDV 5 ML VIAL SC (11:15)
[2017-03-25] MEDS: HEPARIN 1,000 UNITS/ML 10ML VIAL (FOR RADIOLOGY& DIALYSIS ONLY) IV (11:30)
[2017-03-25] MEDS: ATORVASTATIN 20 MG TAB PO ×2 (21:00→21:10)
[2017-03-25] MEDS: FAMOTIDINE 20 MG TAB PO (22:30)
[2017-03-26] MEDS: ONDANSETRON 4MG/2ML VIAL (J2405) IV (00:18)
[2017-03-26] MEDS: IPRATROPIUM 0.5MG/ALBUTEROL 2.5MG INH SOL UD 3ML (DUONEB)(J7620) NEB ×8 (01:19→23:11)
[2017-03-26] MEDS: HEPARIN SOD (PORCINE) 5000 UNITS/ML VIAL SC ×3 (06:16→21:38)
[2017-03-26 07:17] LABS: BASO % 0.1 % (0.0-1.0); EOS % 0.1 % (0.0-3.0); HEMATOCRIT 31.5 % (36.0-47.0); HEMOGLOBIN 10.5 g/dl (12.0-16.0); IMMATURE GRANULOCYTE # 0.1 10^3/uL (0-0); IMMATURE GRANULOCYTE % 0.6 % (0-0); LYMPH # 1.1 10^3/uL (1.5-4.5); MEAN CORPUSCULAR HGB CONC 33.3 g/dl (32.0-36.5); MEAN CORPUSCULAR VOLUME 101.9 fl (80.0-96.0); MONO # 0.8 10^3/uL (0.0-0.8); MONO % 9.4 % (0.0-5.0); NEUTROPHILS # 6.2 10^3/uL (1.8-7.7); NEUTROPHILS % 76.8 % (36.0-66.0); PLATELET COUNT, AUTOMATED 237 10^3/uL (150-450); RED BLOOD COUNT 3.09 10^6/uL (4.00-5.40); RED CELL DISTRIBUTION WIDTH 12.1 % (11.5-14.5); WHITE BLOOD COUNT 8.1 10^3/uL (4.0-10.0)
[2017-03-26 07:29] LABS: ANION GAP 9 MEQ/L (8-16); BLOOD UREA NITROGEN 26 MG/DL (7-18); CALCIUM LEVEL 9.9 MG/DL (8.8-10.2); CARBON DIOXIDE LEVEL 26 MEQ/L (21-32); CHLORIDE LEVEL 106 MEQ/L (98-107); CREATININE FOR GFR 2.68 MG/DL (0.55-1.02); GLOMERULAR FILTRATION RATE 18.6 (>39); GLUCOSE, FASTING 90 MG/DL (83-110); POTASSIUM SERUM 3.7 MEQ/L (3.5-5.1); SODIUM LEVEL 141 MEQ/L (136-145)
[2017-03-26] MEDS: ADVAIR HFA 115/21MCG INHALER INH ×2 (08:04→21:00)
[2017-03-26] MEDS: TIOTROPIUM INHALER/CAPSULE (SPIRIVA) INH (08:11)
[2017-03-26] MEDS: predniSONE 20 MG TAB PO (09:00)
[2017-03-26] MEDS: rOPINIRole 1MG TAB PO ×3 (09:00→20:14)
[2017-03-26] MEDS: amLODIPine 10 MG TAB PO (09:00)
[2017-03-26] MEDS: PANTOPRAZOLE 40MG TAB (PROTONIX) PO (09:00)
[2017-03-26] MEDS: FAMOTIDINE 20 MG TAB PO ×2 (09:00→20:14)
[2017-03-26] MEDS: VENLAFAXINE **XR** 37.5 MG CAPSULE PO (09:00)
[2017-03-26] MEDS: PANTOPRAZOLE 40MG INJ (PROTONIX) (C9113) IV ×2 (09:38→21:37)
[2017-03-26] MEDS: METOCLOPRAMIDE INJ 10MG/2ML VIAL (J2765) IV ×3 (09:38→21:37)
[2017-03-26 10:40] LABS: FREE THYROXINE INDEX 3.1 % (1.3-4.8); T UPTAKE 34 % (30-39)
[2017-03-26] MEDS: MORPHINE 2 MG/ML 1ML SYRINGE IV (12:10)
[2017-03-26] MEDS ORDERED: fentaNYL 100 MCG/2 ML INJECTION (J3010) As Ordered ×2 (15:00→15:45)
[2017-03-26] MEDS ORDERED: dexameTHASONE 4 MG/ML 1ML VIAL (J1100) As Ordered ×2 (16:07)
[2017-03-26] MEDS ORDERED: PROPOFOL 1,000 MG/100 ML VIAL As Ordered (16:39)
[2017-03-26] MEDS ORDERED: IPRATROPIUM 0.5MG/ALBUTEROL 2.5MG INH SOL UD 3ML (DUONEB)(J7620) As Ordered (16:44)
[2017-03-26] MEDS: PROPOFOL 1,000 MG in APPROPRIATE DILUENT 1 EA IV ×2 (16:45→20:14)
[2017-03-26] MEDS ORDERED: NS 1,000 ML IV (16:45)
[2017-03-26] MEDS ORDERED: ONDANSETRON 4MG/2ML VIAL (J2405) IV (17:00)
[2017-03-26] MEDS ORDERED: PROPOFOL 200 MG/20 ML VIAL IV (17:00)
[2017-03-26] MEDS ORDERED: fentaNYL 100 MCG/2 ML INJECTION (J3010) IV (17:00)
[2017-03-26 18:25] LABS: ABG BASE EXCESS -7.5 (-2.0-2.0); ABG O2 SATURATION 92.2 % (95.0-99.0); ABG PARTIAL PRESSURE CO2 49.3 mmHg (35.0-45.0); ABG PARTIAL PRESSURE O2 75.6 mmHg (75.0-100.0); ABG STANDARD HCO3 18.3 MEQ/L (22.0-26.0); ABG TOTAL CO2 21.5 MEQ/L (23.0-31.0)
[2017-03-26 18:29] LABS: ABG pH (ARTERIAL) 7.226 UNITS (7.350-7.450)
[2017-03-26] MEDS: LevoFLOXacin 250 MG TABLET PO (18:38)
[2017-03-26] MEDS: NS 1,000 ML IV (18:39)
[2017-03-26] MEDS: methylPREDNISolone INJ 125 MG/2 ML VIAL (J2930) IV (18:42)
[2017-03-26 19:45] LABS: ABG BASE EXCESS -5.8 (-2.0-2.0); ABG HCO3 19.8 MEQ/L (22.0-26.0); ABG O2 SATURATION 96.6 % (95.0-99.0); ABG PARTIAL PRESSURE CO2 39.3 mmHg (35.0-45.0); ABG PARTIAL PRESSURE O2 92.1 mmHg (75.0-100.0); ABG STANDARD HCO3 19.7 MEQ/L (22.0-26.0)
[2017-03-26] MEDS: ATORVASTATIN 20 MG TAB PO (20:14)
[2017-03-26] MEDS: CINACALCET 30 MG TAB (SENSIPAR) PO (20:15)
[2017-03-26] MEDS: CHLORHEXIDINE ORAL RINSE 0.12%/15ML 120ML BOTTLE MT (21:37)
[2017-03-26] MEDS: MIDAZOLAM INJ 2 MG/2 ML VIAL (J2250) IV (23:46)
[2017-03-27] MEDS: PROPOFOL 1,000 MG in APPROPRIATE DILUENT 1 EA IV ×3 (01:15→09:30)
[2017-03-27] MEDS: methylPREDNISolone INJ 125 MG/2 ML VIAL (J2930) IV ×3 (02:18→18:02)
[2017-03-27] MEDS: IPRATROPIUM 0.5MG/ALBUTEROL 2.5MG INH SOL UD 3ML (DUONEB)(J7620) NEB ×13 (03:38→23:29)
[2017-03-27] MEDS: METOCLOPRAMIDE INJ 10MG/2ML VIAL (J2765) IV ×4 (04:08→21:11)
[2017-03-27 05:19] LABS: HEMATOCRIT 29.3 % (36.0-47.0); HEMOGLOBIN 9.4 g/dl (12.0-16.0); MEAN CORPUSCULAR HEMOGLOBIN 34.1 pg (27.0-33.0); MEAN CORPUSCULAR HGB CONC 32.1 g/dl (32.0-36.5); MEAN CORPUSCULAR VOLUME 106.2 fl (80.0-96.0); PLATELET COUNT, AUTOMATED 183 10^3/uL (150-450); RED BLOOD COUNT 2.76 10^6/uL (4.00-5.40); RED CELL DISTRIBUTION WIDTH 12.1 % (11.5-14.5); WHITE BLOOD COUNT 9.7 10^3/uL (4.0-10.0)
[2017-03-27 05:23] LABS: ADD MANUAL DIFFER YES; DIFF SLIDE NUMBER 84; POSITIVE MORPH POS FLAG
[2017-03-27 05:35] LABS: ALBUMIN/GLOBULIN RATIO 0.94 (1.00-1.93); ALKALINE PHOSPHATASE 40 U/L (45-117); ALT/SGPT 18 U/L (12-78); ANION GAP 11 MEQ/L (8-16); AST/SGOT 21 U/L (7-37); BILIRUBIN,TOTAL 0.5 MG/DL (0.2-1.0); BLOOD UREA NITROGEN 40 MG/DL (7-18); CALCIUM LEVEL 8.5 MG/DL (8.8-10.2); CARBON DIOXIDE LEVEL 24 MEQ/L (21-32); CHLORIDE LEVEL 108 MEQ/L (98-107); CHOLESTEROL LEVEL 134 MG/DL (< 200); CPK CREATINE PHOSPHOKINASE 137 U/L (26-192); CREATININE FOR GFR 3.68 MG/DL (0.55-1.02); GLOMERULAR FILTRATION RATE 12.9 (>39); GLUCOSE, FASTING 195 MG/DL (83-110); LDH LACTATE DEHYDROGENASE 203 U/L (84-246); PHOSPHORUS LEVEL 3.8 MG/DL (2.5-4.9); POTASSIUM SERUM 3.8 MEQ/L (3.5-5.1); SODIUM LEVEL 143 MEQ/L (136-145); TOTAL PROTEIN 6.2 GM/DL (6.4-8.2); TRIGLYCERIDES LEVEL 91 MG/DL (<150)
[2017-03-27] MEDS: HEPARIN SOD (PORCINE) 5000 UNITS/ML VIAL SC ×3 (05:37→21:11)
[2017-03-27 05:48] LABS: BANDS 3 % (< 11); LYMPHOCYTES 6 % (16-52); MONOCYTES 4 % (0-8); NEUTROPHILS 87 % (35-75); PLATELET ESTIMATE NORMAL (NORMAL)
[2017-03-27 06:20] LABS: ABG pH (ARTERIAL) 7.381 UNITS (7.350-7.450)
[2017-03-27 06:21] LABS: ABG BASE EXCESS -3.5 (-2.0-2.0); ABG HCO3 21.2 MEQ/L (22.0-26.0); ABG O2 SATURATION 99.8 % (95.0-99.0); ABG PARTIAL PRESSURE CO2 36.6 mmHg (35.0-45.0); ABG PARTIAL PRESSURE O2 240.9 mmHg (75.0-100.0); ABG STANDARD HCO3 21.6 MEQ/L (22.0-26.0); ABG TOTAL CO2 22.3 MEQ/L (23.0-31.0)
[2017-03-27] MEDS: TIOTROPIUM INHALER/CAPSULE (SPIRIVA) INH (08:00)
[2017-03-27] MEDS: ADVAIR HFA 115/21MCG INHALER INH ×2 (08:56→19:48)
[2017-03-27] MEDS: VENLAFAXINE **XR** 37.5 MG CAPSULE PO (09:00)
[2017-03-27] MEDS: rOPINIRole 1MG TAB PO ×2 (09:00→20:34)
[2017-03-27] MEDS: FAMOTIDINE 20 MG TAB PO ×2 (09:00→20:34)
[2017-03-27] MEDS: PANTOPRAZOLE 40MG INJ (PROTONIX) (C9113) IV ×2 (09:31→20:34)
[2017-03-27] MEDS: CHLORHEXIDINE ORAL RINSE 0.12%/15ML 120ML BOTTLE MT (09:32)
[2017-03-27] MEDS: DIGOXIN INJ 0.5 MG/2 ML AMP (J1160) IV ×2 (12:25→18:02)
[2017-03-27] MEDS: LIDOCAINE 1% SDV 5 ML VIAL SQ (13:15)
[2017-03-27] MEDS: HEPARIN 1,000 UNITS/ML 10ML VIAL (FOR RADIOLOGY& DIALYSIS ONLY) IV (13:15)
[2017-03-27] MEDS: diltiaZEM 125 MG in NS 100 ML IV (14:08)
[2017-03-27] MEDS: DARBEPOETIN 100 MCG/0.5 ML *NON-DIALYSIS* SYRINGE (J0881) SC (14:53)
[2017-03-27 15:44] LABS: ABG BASE EXCESS 5.7 (-2.0-2.0); ABG DEVICE MECHAN. VENT; ABG HCO3 28.8 MEQ/L (22.0-26.0); ABG O2 LITER FLOW 40; ABG PARTIAL PRESSURE CO2 36.5 mmHg (35.0-45.0); ABG PARTIAL PRESSURE O2 67.2 mmHg (75.0-100.0); ABG PATIENT RESP RATE 14 /MIN; ABG PEEP 5; ABG STANDARD HCO3 29.6 MEQ/L (22.0-26.0); ABG TIDAL VOLUME 360 cc; ABG TOTAL CO2 29.9 MEQ/L (23.0-31.0); ABG pH (ARTERIAL) 7.515 UNITS (7.350-7.450)
[2017-03-27 15:45] LABS: ABG O2 SATURATION 95.3 % (95.0-99.0)
[2017-03-27] MEDS: ATORVASTATIN 20 MG TAB PO (20:34)
[2017-03-27] MEDS: CINACALCET 30 MG TAB (SENSIPAR) PO (20:34)
[2017-03-27] MEDS: NORCO, ANEXSIA 5/325MG TABLET (HYDROcodone/ACETAMINOPHEN) PO (22:22)
[2017-03-28] MEDS: diltiaZEM 125 MG in NS 100 ML IV (00:49)
[2017-03-28] MEDS: methylPREDNISolone INJ 125 MG/2 ML VIAL (J2930) IV ×3 (02:22→17:09)
[2017-03-28] MEDS: METOCLOPRAMIDE INJ 10MG/2ML VIAL (J2765) IV ×4 (03:08→21:53)
[2017-03-28] MEDS: IPRATROPIUM 0.5MG/ALBUTEROL 2.5MG INH SOL UD 3ML (DUONEB)(J7620) NEB ×8 (03:20→20:50)
[2017-03-28 05:01] LABS: BASO % 0.1 % (0.0-1.0); HEMOGLOBIN 9.8 g/dl (12.0-16.0); IMMATURE GRANULOCYTE # 0.1 10^3/uL (0-0); LYMPH # 0.8 10^3/uL (1.5-4.5); LYMPH % 9.8 % (24.0-44.0); MEAN CORPUSCULAR HGB CONC 32.7 g/dl (32.0-36.5); MEAN CORPUSCULAR VOLUME 104.2 fl (80.0-96.0); MONO # 0.3 10^3/uL (0.0-0.8); MONO % 3.2 % (0.0-5.0); NEUTROPHILS # 6.9 10^3/uL (1.8-7.7); NEUTROPHILS % 85.9 % (36.0-66.0); PLATELET COUNT, AUTOMATED 219 10^3/uL (150-450); RED BLOOD COUNT 2.88 10^6/uL (4.00-5.40); WHITE BLOOD COUNT 8.1 10^3/uL (4.0-10.0)
[2017-03-28 05:25] LABS: ALBUMIN/GLOBULIN RATIO 0.81 (1.00-1.93); ALKALINE PHOSPHATASE 44 U/L (45-117); ALT/SGPT 19 U/L (12-78); ANION GAP 10 MEQ/L (8-16); AST/SGOT 18 U/L (7-37); BILIRUBIN,TOTAL 0.8 MG/DL (0.2-1.0); BLOOD UREA NITROGEN 34 MG/DL (7-18); CALCIUM LEVEL 9.2 MG/DL (8.8-10.2); CARBON DIOXIDE LEVEL 25 MEQ/L (21-32); CHLORIDE LEVEL 102 MEQ/L (98-107); CHOLESTEROL LEVEL 151 MG/DL (< 200); CPK CREATINE PHOSPHOKINASE 91 U/L (26-192); CREATININE FOR GFR 2.89 MG/DL (0.55-1.02); GLUCOSE, FASTING 138 MG/DL (83-110); LDH LACTATE DEHYDROGENASE 203 U/L (84-246); PHOSPHORUS LEVEL 4.1 MG/DL (2.5-4.9); POTASSIUM SERUM 3.8 MEQ/L (3.5-5.1); SODIUM LEVEL 137 MEQ/L (136-145); TOTAL PROTEIN 6.7 GM/DL (6.4-8.2); TRIGLYCERIDES LEVEL 94 MG/DL (<150)
[2017-03-28] MEDS: LevoFLOXacin 250 MG TABLET PO (05:57)
[2017-03-28] MEDS: HEPARIN SOD (PORCINE) 5000 UNITS/ML VIAL SC (05:57)
[2017-03-28] MEDS: ATENOLOL 50 MG TAB PO ×2 (06:50→21:52)
[2017-03-28 07:00] LABS: CK-MB VALUE MASS 2.7 NG/ML (0.0-3.6); MB/CK RELATIVE INDEX 2.96 (< OR =4); NT-PRO BNP 9554 PG/ML (<125); TROPONIN I 0.14 NG/ML (< 0.10)
[2017-03-28 07:54] LABS: DIGOXIN LEVEL 1.2 NG/ML (0.5-2.0)
[2017-03-28] MEDS: TIOTROPIUM INHALER/CAPSULE (SPIRIVA) INH ×2 (08:00→08:59)
[2017-03-28] MEDS: WARFARIN SOD 5 MG TAB PO (08:27)
[2017-03-28] MEDS: ADVAIR HFA 115/21MCG INHALER INH ×2 (08:59→21:00)
[2017-03-28] MEDS: PANTOPRAZOLE 40MG INJ (PROTONIX) (C9113) IV ×2 (09:00→09:58)
[2017-03-28] MEDS: VENLAFAXINE **XR** 37.5 MG CAPSULE PO (09:58)
[2017-03-28] MEDS: rOPINIRole 1MG TAB PO ×2 (09:58→21:53)
[2017-03-28] MEDS: FAMOTIDINE 20 MG TAB PO ×2 (09:58→21:53)
[2017-03-28] MEDS ORDERED: SLF 3 ML SYR IV (13:45)
[2017-03-28] MEDS: SLF 3 ML SYR IV ×2 (14:00→21:54)
[2017-03-28] MEDS: CINACALCET 30 MG TAB (SENSIPAR) PO (21:46)
[2017-03-28] MEDS: ATORVASTATIN 20 MG TAB PO (21:46)
[2017-03-28] MEDS: NORCO, ANEXSIA 5/325MG TABLET (HYDROcodone/ACETAMINOPHEN) PO (21:53)
[2017-03-29] MEDS: IPRATROPIUM 0.5MG/ALBUTEROL 2.5MG INH SOL UD 3ML (DUONEB)(J7620) NEB ×6 (00:04→20:00)
[2017-03-29] MEDS: methylPREDNISolone INJ 125 MG/2 ML VIAL (J2930) IV ×3 (02:28→17:49)
[2017-03-29] MEDS: SLF 3 ML SYR IV ×3 (04:49→21:32)
[2017-03-29] MEDS: METOCLOPRAMIDE INJ 10MG/2ML VIAL (J2765) IV ×4 (04:49→21:31)
[2017-03-29 04:55] LABS: BASO % 0.1 % (0.0-1.0); HEMATOCRIT 30.8 % (36.0-47.0); HEMOGLOBIN 10.2 g/dl (12.0-16.0); IMMATURE GRANULOCYTE # 0.2 10^3/uL (0-0); LYMPH # 1.1 10^3/uL (1.5-4.5); LYMPH % 13.5 % (24.0-44.0); MEAN CORPUSCULAR HEMOGLOBIN 34.1 pg (27.0-33.0); MEAN CORPUSCULAR HGB CONC 33.1 g/dl (32.0-36.5); MONO # 0.3 10^3/uL (0.0-0.8); MONO % 3.9 % (0.0-5.0); NEUTROPHILS # 6.6 10^3/uL (1.8-7.7); NEUTROPHILS % 80.5 % (36.0-66.0); PLATELET COUNT, AUTOMATED 248 10^3/uL (150-450); RED BLOOD COUNT 2.99 10^6/uL (4.00-5.40); RED CELL DISTRIBUTION WIDTH 11.8 % (11.5-14.5); WHITE BLOOD COUNT 8.2 10^3/uL (4.0-10.0)
[2017-03-29 05:04] LABS: INR 1.41; PROTHROMBIN TIME 17.6 SECONDS (12.4-14.5)
[2017-03-29 05:13] LABS: ALBUMIN/GLOBULIN RATIO 0.81 (1.00-1.93); ALKALINE PHOSPHATASE 47 U/L (45-117); ALT/SGPT 22 U/L (12-78); ANION GAP 9 MEQ/L (8-16); AST/SGOT 14 U/L (7-37); BILIRUBIN,TOTAL 0.6 MG/DL (0.2-1.0); BLOOD UREA NITROGEN 61 MG/DL (7-18); CALCIUM LEVEL 8.9 MG/DL (8.8-10.2); CARBON DIOXIDE LEVEL 25 MEQ/L (21-32); CHLORIDE LEVEL 98 MEQ/L (98-107); CHOLESTEROL LEVEL 165 MG/DL (< 200); CPK CREATINE PHOSPHOKINASE 120 U/L (26-192); CREATININE FOR GFR 4.17 MG/DL (0.55-1.02); GLOMERULAR FILTRATION RATE 11.2 (>39); GLUCOSE, FASTING 138 MG/DL (83-110); LDH LACTATE DEHYDROGENASE 220 U/L (84-246); POTASSIUM SERUM 4.5 MEQ/L (3.5-5.1); SODIUM LEVEL 132 MEQ/L (136-145); TOTAL PROTEIN 6.7 GM/DL (6.4-8.2); TRIGLYCERIDES LEVEL 109 MG/DL (<150)
[2017-03-29] MEDS: rOPINIRole 1MG TAB PO ×2 (07:51→18:35)
[2017-03-29] MEDS: VENLAFAXINE **XR** 37.5 MG CAPSULE PO (07:51)
[2017-03-29] MEDS: FAMOTIDINE 20 MG TAB PO ×2 (07:52→21:32)
[2017-03-29] MEDS: ADVAIR HFA 115/21MCG INHALER INH ×2 (07:57→19:42)
[2017-03-29] MEDS: TIOTROPIUM INHALER/CAPSULE (SPIRIVA) INH (07:57)
[2017-03-29] MEDS: ATENOLOL 50 MG TAB PO ×2 (09:00→21:32)
[2017-03-29] MEDS: LIDOCAINE 1% SDV 5 ML VIAL SQ (11:30)
[2017-03-29] MEDS: HEPARIN 1,000 UNITS/ML 10ML VIAL (FOR RADIOLOGY& DIALYSIS ONLY) IV (11:30)
[2017-03-29] MEDS: WARFARIN SOD 5 MG TAB PO (16:53)
[2017-03-29] MEDS: NORCO, ANEXSIA 5/325MG TABLET (HYDROcodone/ACETAMINOPHEN) PO (16:53)
[2017-03-29] MEDS: CINACALCET 30 MG TAB (SENSIPAR) PO (21:31)
[2017-03-29] MEDS: ATORVASTATIN 20 MG TAB PO (21:32)
[2017-03-30] MEDS: methylPREDNISolone INJ 125 MG/2 ML VIAL (J2930) IV (01:39)
[2017-03-30] MEDS: METOCLOPRAMIDE INJ 10MG/2ML VIAL (J2765) IV ×4 (03:48→21:34)
[2017-03-30] MEDS: IPRATROPIUM 0.5MG/ALBUTEROL 2.5MG INH SOL UD 3ML (DUONEB)(J7620) NEB ×7 (04:00→22:29)
[2017-03-30] MEDS: SLF 3 ML SYR IV ×3 (05:25→21:44)
[2017-03-30] MEDS: LevoFLOXacin 250 MG TABLET PO (05:25)
[2017-03-30 07:01] LABS: BASO % 0.4 % (0.0-1.0); HEMATOCRIT 32.6 % (36.0-47.0); HEMOGLOBIN 10.6 g/dl (12.0-16.0); IMMATURE GRANULOCYTE # 0.3 10^3/uL (0-0); IMMATURE GRANULOCYTE % 3.5 % (0-0); LYMPH # 0.7 10^3/uL (1.5-4.5); MEAN CORPUSCULAR HEMOGLOBIN 33.8 pg (27.0-33.0); MEAN CORPUSCULAR HGB CONC 32.5 g/dl (32.0-36.5); MEAN CORPUSCULAR VOLUME 103.8 fl (80.0-96.0); MONO # 0.3 10^3/uL (0.0-0.8); MONO % 3.6 % (0.0-5.0); NEUTROPHILS # 6.8 10^3/uL (1.8-7.7); NEUTROPHILS % 83.5 % (36.0-66.0); PLATELET COUNT, AUTOMATED 261 10^3/uL (150-450); RED BLOOD COUNT 3.14 10^6/uL (4.00-5.40); RED CELL DISTRIBUTION WIDTH 11.9 % (11.5-14.5); WHITE BLOOD COUNT 8.1 10^3/uL (4.0-10.0)
[2017-03-30 07:15] LABS: PROTHROMBIN TIME 23.4 SECONDS (12.4-14.5)
[2017-03-30] MEDS: ADVAIR HFA 115/21MCG INHALER INH ×2 (07:16→22:27)
[2017-03-30] MEDS: TIOTROPIUM INHALER/CAPSULE (SPIRIVA) INH (07:16)
[2017-03-30 07:29] LABS: ALBUMIN 2.9 GM/DL (3.2-5.2); ALBUMIN/GLOBULIN RATIO 0.78 (1.00-1.93); ALKALINE PHOSPHATASE 46 U/L (45-117); ALT/SGPT 21 U/L (12-78); ANION GAP 8 MEQ/L (8-16); AST/SGOT 12 U/L (7-37); BILIRUBIN,TOTAL 0.6 MG/DL (0.2-1.0); BLOOD UREA NITROGEN 45 MG/DL (7-18); CALCIUM LEVEL 8.6 MG/DL (8.8-10.2); CARBON DIOXIDE LEVEL 28 MEQ/L (21-32); CHLORIDE LEVEL 100 MEQ/L (98-107); CHOLESTEROL LEVEL 187 MG/DL (< 200); CPK CREATINE PHOSPHOKINASE 59 U/L (26-192); CREATININE FOR GFR 3.33 MG/DL (0.55-1.02); GLOMERULAR FILTRATION RATE 14.5 (>39); GLUCOSE, FASTING 135 MG/DL (83-110); LDH LACTATE DEHYDROGENASE 219 U/L (84-246); PHOSPHORUS LEVEL 5.1 MG/DL (2.5-4.9); POTASSIUM SERUM 4.1 MEQ/L (3.5-5.1); SODIUM LEVEL 136 MEQ/L (136-145); TOTAL PROTEIN 6.6 GM/DL (6.4-8.2); TRIGLYCERIDES LEVEL 111 MG/DL (<150)
[2017-03-30] MEDS: ATENOLOL 50 MG TAB PO ×2 (08:20→21:35)
[2017-03-30] MEDS: FAMOTIDINE 20 MG TAB PO ×2 (08:21→21:35)
[2017-03-30] MEDS: rOPINIRole 1MG TAB PO ×2 (08:21→18:01)
[2017-03-30] MEDS: VENLAFAXINE **XR** 37.5 MG CAPSULE PO (08:21)
[2017-03-30] MEDS: NORCO, ANEXSIA 5/325MG TABLET (HYDROcodone/ACETAMINOPHEN) PO ×2 (08:22→16:17)
[2017-03-30] MEDS: methylPREDNISolone INJ 40 MG/1 ML VIAL (J2920) IV (13:35)
[2017-03-30] MEDS: ACETAMINOPHEN TAB 650MG DOSE (2X325MG) PO ×2 (13:36→21:35)
[2017-03-30] MEDS: WARFARIN SOD 2.5 MG TAB PO (16:17)
[2017-03-30] MEDS: CINACALCET 30 MG TAB (SENSIPAR) PO (21:34)
[2017-03-30] MEDS: ATORVASTATIN 20 MG TAB PO (21:35)
[2017-03-31] MEDS: methylPREDNISolone INJ 40 MG/1 ML VIAL (J2920) IV ×2 (02:18→15:10)
[2017-03-31] MEDS: ACETAMINOPHEN TAB 650MG DOSE (2X325MG) PO ×2 (02:18→10:45)
[2017-03-31] MEDS: NORCO, ANEXSIA 5/325MG TABLET (HYDROcodone/ACETAMINOPHEN) PO ×2 (05:31→12:03)
[2017-03-31] MEDS: METOCLOPRAMIDE INJ 10MG/2ML VIAL (J2765) IV ×4 (05:31→21:52)
[2017-03-31] MEDS: SLF 3 ML SYR IV ×3 (06:00→21:52)
[2017-03-31 07:19] LABS: BASO % 0.4 % (0.0-1.0); HEMATOCRIT 32.5 % (36.0-47.0); HEMOGLOBIN 10.9 g/dl (12.0-16.0); IMMATURE GRANULOCYTE # 0.4 10^3/uL (0-0); IMMATURE GRANULOCYTE % 4.1 % (0-0); LYMPH # 0.8 10^3/uL (1.5-4.5); LYMPH % 8.3 % (24.0-44.0); MEAN CORPUSCULAR HEMOGLOBIN 33.9 pg (27.0-33.0); MEAN CORPUSCULAR HGB CONC 33.5 g/dl (32.0-36.5); MEAN CORPUSCULAR VOLUME 100.9 fl (80.0-96.0); MONO # 0.4 10^3/uL (0.0-0.8); MONO % 3.8 % (0.0-5.0); NEUTROPHILS # 8.1 10^3/uL (1.8-7.7); NEUTROPHILS % 83.4 % (36.0-66.0); PLATELET COUNT, AUTOMATED 290 10^3/uL (150-450); RED BLOOD COUNT 3.22 10^6/uL (4.00-5.40); RED CELL DISTRIBUTION WIDTH 11.6 % (11.5-14.5); WHITE BLOOD COUNT 9.7 10^3/uL (4.0-10.0)
[2017-03-31] MEDS: IPRATROPIUM 0.5MG/ALBUTEROL 2.5MG INH SOL UD 3ML (DUONEB)(J7620) NEB ×5 (07:27→23:46)
[2017-03-31] MEDS: TIOTROPIUM INHALER/CAPSULE (SPIRIVA) INH (07:27)
[2017-03-31] MEDS: ADVAIR HFA 115/21MCG INHALER INH ×2 (07:27→20:32)
[2017-03-31 07:29] LABS: INR 2.93; PROTHROMBIN TIME 31.9 SECONDS (12.4-14.5)
[2017-03-31 07:39] LABS: ALBUMIN 2.8 GM/DL (3.2-5.2); ALBUMIN/GLOBULIN RATIO 0.82 (1.00-1.93); ALKALINE PHOSPHATASE 44 U/L (45-117); ALT/SGPT 20 U/L (12-78); ANION GAP 9 MEQ/L (8-16); AST/SGOT 12 U/L (7-37); BILIRUBIN,TOTAL 0.5 MG/DL (0.2-1.0); BLOOD UREA NITROGEN 73 MG/DL (7-18); CALCIUM LEVEL 7.8 MG/DL (8.8-10.2); CARBON DIOXIDE LEVEL 27 MEQ/L (21-32); CHLORIDE LEVEL 97 MEQ/L (98-107); CHOLESTEROL LEVEL 191 MG/DL (< 200); CPK CREATINE PHOSPHOKINASE 55 U/L (26-192); CREATININE FOR GFR 4.62 MG/DL (0.55-1.02); GLOMERULAR FILTRATION RATE 9.9 (>39); GLUCOSE, FASTING 119 MG/DL (83-110); LDH LACTATE DEHYDROGENASE 226 U/L (84-246); PHOSPHORUS LEVEL 5.9 MG/DL (2.5-4.9); POTASSIUM SERUM 4.4 MEQ/L (3.5-5.1); SODIUM LEVEL 133 MEQ/L (136-145); TOTAL PROTEIN 6.2 GM/DL (6.4-8.2); TRIGLYCERIDES LEVEL 117 MG/DL (<150)
[2017-03-31] MEDS: rOPINIRole 1MG TAB PO ×2 (10:44→18:52)
[2017-03-31] MEDS: VENLAFAXINE **XR** 37.5 MG CAPSULE PO (10:45)
[2017-03-31] MEDS: FAMOTIDINE 20 MG TAB PO ×2 (10:45→21:51)
[2017-03-31] MEDS: ATENOLOL 50 MG TAB PO ×2 (10:46→21:00)
[2017-03-31] MEDS: MIRALAX *UNIT DOSE* 17GM PACKET PO (15:17)
[2017-03-31] MEDS: CINACALCET 30 MG TAB (SENSIPAR) PO (21:51)
[2017-03-31] MEDS: ATORVASTATIN 20 MG TAB PO (21:51)
[2017-04-01] MEDS: methylPREDNISolone INJ 40 MG/1 ML VIAL (J2920) IV (02:48)
[2017-04-01] MEDS: NORCO, ANEXSIA 5/325MG TABLET (HYDROcodone/ACETAMINOPHEN) PO ×3 (02:49→22:14)
[2017-04-01] MEDS: IPRATROPIUM 0.5MG/ALBUTEROL 2.5MG INH SOL UD 3ML (DUONEB)(J7620) NEB ×5 (04:00→20:00)
[2017-04-01] MEDS: SLF 3 ML SYR IV ×3 (06:00→22:14)
[2017-04-01 06:01] LABS: INR 3.77; PROTHROMBIN TIME 39.1 SECONDS (12.4-14.5)
[2017-04-01] MEDS: rOPINIRole 1MG TAB PO ×2 (06:08→17:49)
[2017-04-01] MEDS: VENLAFAXINE **XR** 37.5 MG CAPSULE PO (06:08)
[2017-04-01] MEDS: LevoFLOXacin 250 MG TABLET PO (06:08)
[2017-04-01] MEDS: METOCLOPRAMIDE INJ 10MG/2ML VIAL (J2765) IV ×4 (06:08→22:14)
[2017-04-01] MEDS: FAMOTIDINE 20 MG TAB PO ×2 (06:09→20:31)
[2017-04-01] MEDS: ATENOLOL 50 MG TAB PO ×2 (06:09→20:32)
[2017-04-01] MEDS: ADVAIR HFA 115/21MCG INHALER INH ×2 (08:00→21:24)
[2017-04-01] MEDS: TIOTROPIUM INHALER/CAPSULE (SPIRIVA) INH (08:00)
[2017-04-01] MEDS: HEPARIN 1,000 UNITS/ML 10ML VIAL (FOR RADIOLOGY& DIALYSIS ONLY) IV (14:06)
[2017-04-01] MEDS: LIDOCAINE 1% SDV 5 ML VIAL SC (14:06)
[2017-04-01] MEDS: BISACODYL 10 MG SUPP PR (17:48)
[2017-04-01] MEDS: ATORVASTATIN 20 MG TAB PO (20:32)
[2017-04-01] MEDS: CINACALCET 30 MG TAB (SENSIPAR) PO (20:32)
[2017-04-01] MEDS: SENOKOT S TAB PO (20:32)
[2017-04-02] MEDS: IPRATROPIUM 0.5MG/ALBUTEROL 2.5MG INH SOL UD 3ML (DUONEB)(J7620) NEB ×6 (00:06→20:00)
[2017-04-02] MEDS: METOCLOPRAMIDE INJ 10MG/2ML VIAL (J2765) IV ×4 (04:05→21:12)
[2017-04-02] MEDS: methylPREDNISolone INJ 40 MG/1 ML VIAL (J2920) IV (04:05)
[2017-04-02] MEDS: SLF 3 ML SYR IV ×3 (05:20→21:14)
[2017-04-02] MEDS: NORCO, ANEXSIA 5/325MG TABLET (HYDROcodone/ACETAMINOPHEN) PO ×2 (07:10→16:28)
[2017-04-02 07:22] LABS: BASO # 0.1 10^3/uL (0.0-0.2); BASO % 0.3 % (0.0-1.0); EOS # 0.1 10^3/uL (0.0-0.50); EOS % 0.4 % (0.0-3.0); HEMOGLOBIN 12.8 g/dl (12.0-16.0); IMMATURE GRANULOCYTE # 0.5 10^3/uL (0-0); IMMATURE GRANULOCYTE % 3.1 % (0-0); LYMPH # 0.6 10^3/uL (1.5-4.5); LYMPH % 4.2 % (24.0-44.0); MEAN CORPUSCULAR HEMOGLOBIN 34.3 pg (27.0-33.0); MEAN CORPUSCULAR HGB CONC 33.7 g/dl (32.0-36.5); MEAN CORPUSCULAR VOLUME 101.9 fl (80.0-96.0); MONO # 0.4 10^3/uL (0.0-0.8); MONO % 2.7 % (0.0-5.0); NEUTROPHILS # 13.7 10^3/uL (1.8-7.7); NEUTROPHILS % 89.3 % (36.0-66.0); PLATELET COUNT, AUTOMATED 307 10^3/uL (150-450); RED BLOOD COUNT 3.73 10^6/uL (4.00-5.40); WHITE BLOOD COUNT 15.3 10^3/uL (4.0-10.0)
[2017-04-02 07:24] LABS: INR 2.29; PROTHROMBIN TIME 26.1 SECONDS (12.4-14.5)
[2017-04-02 07:33] LABS: ANION GAP 11 MEQ/L (8-16); BLOOD UREA NITROGEN 49 MG/DL (7-18); CALCIUM LEVEL 7.9 MG/DL (8.8-10.2); CARBON DIOXIDE LEVEL 24 MEQ/L (21-32); CHLORIDE LEVEL 102 MEQ/L (98-107); GLOMERULAR FILTRATION RATE 13.2 (>39); GLUCOSE, FASTING 97 MG/DL (83-110); POTASSIUM SERUM 4.6 MEQ/L (3.5-5.1); SODIUM LEVEL 137 MEQ/L (136-145)
[2017-04-02] MEDS: TIOTROPIUM INHALER/CAPSULE (SPIRIVA) INH (08:39)
[2017-04-02] MEDS: ADVAIR HFA 115/21MCG INHALER INH ×2 (08:39→21:30)
[2017-04-02] MEDS: rOPINIRole 1MG TAB PO ×2 (10:09→18:35)
[2017-04-02] MEDS: FAMOTIDINE 20 MG TAB PO ×2 (10:10→21:13)
[2017-04-02] MEDS: ATENOLOL 50 MG TAB PO ×2 (10:10→21:13)
[2017-04-02] MEDS: VENLAFAXINE **XR** 37.5 MG CAPSULE PO (10:10)
[2017-04-02] MEDS: BISACODYL 10 MG SUPP PR (10:10)
[2017-04-02] MEDS: SENOKOT S TAB PO ×2 (10:10→21:13)
[2017-04-02] MEDS: WARFARIN SOD 2.5 MG TAB PO (16:28)
[2017-04-02] MEDS: CINACALCET 30 MG TAB (SENSIPAR) PO (21:12)
[2017-04-02] MEDS: ATORVASTATIN 20 MG TAB PO (21:12)
[2017-04-03] MEDS: METOCLOPRAMIDE INJ 10MG/2ML VIAL (J2765) IV ×4 (03:05→20:50)
[2017-04-03] MEDS: methylPREDNISolone INJ 40 MG/1 ML VIAL (J2920) IV (03:05)
[2017-04-03] MEDS: IPRATROPIUM 0.5MG/ALBUTEROL 2.5MG INH SOL UD 3ML (DUONEB)(J7620) NEB ×6 (04:00→20:00)
[2017-04-03] MEDS: NORCO, ANEXSIA 5/325MG TABLET (HYDROcodone/ACETAMINOPHEN) PO ×3 (04:54→20:49)
[2017-04-03] MEDS: SLF 3 ML SYR IV ×3 (05:07→20:50)
[2017-04-03] MEDS: MIRALAX *UNIT DOSE* 17GM PACKET PO (06:38)
[2017-04-03] MEDS: SENOKOT S TAB PO ×2 (06:39→20:49)
[2017-04-03] MEDS: VENLAFAXINE **XR** 37.5 MG CAPSULE PO (06:39)
[2017-04-03] MEDS: FAMOTIDINE 20 MG TAB PO ×2 (06:40→20:49)
[2017-04-03] MEDS: rOPINIRole 1MG TAB PO ×2 (06:40→18:38)
[2017-04-03] MEDS: ATENOLOL 50 MG TAB PO ×2 (07:34→20:49)
[2017-04-03] MEDS: TIOTROPIUM INHALER/CAPSULE (SPIRIVA) INH (08:00)
[2017-04-03] MEDS: ADVAIR HFA 115/21MCG INHALER INH ×2 (08:32→20:24)
[2017-04-03] MEDS: BISACODYL 10 MG SUPP PR (08:33)
[2017-04-03] MEDS: predniSONE 20 MG TAB PO (12:08)
[2017-04-03] MEDS: HEPARIN 1,000 UNITS/ML 10ML VIAL (FOR RADIOLOGY& DIALYSIS ONLY) IV (13:30)
[2017-04-03] MEDS: LIDOCAINE 1% SDV 5 ML VIAL SQ (13:30)
[2017-04-03 14:08] LABS: BASO # 0.1 10^3/uL (0.0-0.2); BASO % 0.5 % (0.0-1.0); EOS % 0.1 % (0.0-3.0); HEMOGLOBIN 13.4 g/dl (12.0-16.0); IMMATURE GRANULOCYTE # 0.3 10^3/uL (0-0); IMMATURE GRANULOCYTE % 2.6 % (0-0); LYMPH # 0.7 10^3/uL (1.5-4.5); LYMPH % 6.5 % (24.0-44.0); MEAN CORPUSCULAR HEMOGLOBIN 34.1 pg (27.0-33.0); MEAN CORPUSCULAR HGB CONC 33.5 g/dl (32.0-36.5); MEAN CORPUSCULAR VOLUME 101.8 fl (80.0-96.0); MONO # 0.3 10^3/uL (0.0-0.8); MONO % 2.8 % (0.0-5.0); NEUTROPHILS # 8.9 10^3/uL (1.8-7.7); NEUTROPHILS % 87.5 % (36.0-66.0); PLATELET COUNT, AUTOMATED 304 10^3/uL (150-450); RED BLOOD COUNT 3.93 10^6/uL (4.00-5.40); WHITE BLOOD COUNT 10.1 10^3/uL (4.0-10.0)
[2017-04-03 14:30] LABS: ANION GAP 9 MEQ/L (8-16); BLOOD UREA NITROGEN 24 MG/DL (7-18); CALCIUM LEVEL 8.2 MG/DL (8.8-10.2); CARBON DIOXIDE LEVEL 30 MEQ/L (21-32); CHLORIDE LEVEL 99 MEQ/L (98-107); CREATININE FOR GFR 2.74 MG/DL (0.55-1.02); GLOMERULAR FILTRATION RATE 18.1 (>39); GLUCOSE, FASTING 191 MG/DL (83-110); POTASSIUM SERUM 4.4 MEQ/L (3.5-5.1); SODIUM LEVEL 138 MEQ/L (136-145)
[2017-04-03] MEDS: BIOFREEZE TOP (14:48)
[2017-04-03 15:05] LABS: INR 2.41; PROTHROMBIN TIME 27.2 SECONDS (12.4-14.5)
[2017-04-03] MEDS: WARFARIN SOD 2.5 MG TAB PO (17:01)
[2017-04-03] MEDS: CINACALCET 30 MG TAB (SENSIPAR) PO (20:48)
[2017-04-03] MEDS: ATORVASTATIN 20 MG TAB PO (20:49)
[2017-04-04] MEDS: METOCLOPRAMIDE INJ 10MG/2ML VIAL (J2765) IV ×5 (01:35→20:45)
[2017-04-04] MEDS: IPRATROPIUM 0.5MG/ALBUTEROL 2.5MG INH SOL UD 3ML (DUONEB)(J7620) NEB ×6 (01:37→20:00)
[2017-04-04] MEDS: SLF 3 ML SYR IV ×3 (05:39→20:49)
[2017-04-04] MEDS: NORCO, ANEXSIA 5/325MG TABLET (HYDROcodone/ACETAMINOPHEN) PO ×2 (05:39→13:49)
[2017-04-04 06:42] LABS: BASO % 0.1 % (0.0-1.0); EOS # 0.1 10^3/uL (0.0-0.50); EOS % 1.2 % (0.0-3.0); HEMATOCRIT 35.3 % (36.0-47.0); HEMOGLOBIN 11.7 g/dl (12.0-16.0); IMMATURE GRANULOCYTE # 0.3 10^3/uL (0-0); IMMATURE GRANULOCYTE % 2.7 % (0-0); LYMPH # 1.3 10^3/uL (1.5-4.5); LYMPH % 12.8 % (24.0-44.0); MEAN CORPUSCULAR HGB CONC 33.1 g/dl (32.0-36.5); MEAN CORPUSCULAR VOLUME 102.6 fl (80.0-96.0); MONO # 0.6 10^3/uL (0.0-0.8); MONO % 5.8 % (0.0-5.0); NEUTROPHILS # 7.7 10^3/uL (1.8-7.7); NEUTROPHILS % 77.4 % (36.0-66.0); PLATELET COUNT, AUTOMATED 250 10^3/uL (150-450); RED BLOOD COUNT 3.44 10^6/uL (4.00-5.40); RED CELL DISTRIBUTION WIDTH 12.6 % (11.5-14.5); WHITE BLOOD COUNT 9.9 10^3/uL (4.0-10.0)
[2017-04-04 06:58] LABS: INR 3.07; PROTHROMBIN TIME 33.1 SECONDS (12.4-14.5)
[2017-04-04 07:00] LABS: ANION GAP 10 MEQ/L (8-16); BLOOD UREA NITROGEN 40 MG/DL (7-18); CARBON DIOXIDE LEVEL 29 MEQ/L (21-32); CHLORIDE LEVEL 98 MEQ/L (98-107); GLOMERULAR FILTRATION RATE 12.4 (>39); GLUCOSE, FASTING 86 MG/DL (83-110); POTASSIUM SERUM 3.7 MEQ/L (3.5-5.1); SODIUM LEVEL 137 MEQ/L (136-145)
[2017-04-04] MEDS: TIOTROPIUM INHALER/CAPSULE (SPIRIVA) INH (07:47)
[2017-04-04] MEDS: ADVAIR HFA 115/21MCG INHALER INH ×2 (07:47→20:12)
[2017-04-04] MEDS: BISACODYL 10 MG SUPP PR (09:00)
[2017-04-04] MEDS: rOPINIRole 1MG TAB PO ×2 (09:44→18:00)
[2017-04-04] MEDS: predniSONE 20 MG TAB PO (09:44)
[2017-04-04] MEDS: ATENOLOL 50 MG TAB PO ×2 (09:44→20:48)
[2017-04-04] MEDS: SENOKOT S TAB PO ×2 (09:44→20:46)
[2017-04-04] MEDS: VENLAFAXINE **XR** 37.5 MG CAPSULE PO (09:45)
[2017-04-04] MEDS: FAMOTIDINE 20 MG TAB PO ×2 (09:45→20:46)
[2017-04-04] MEDS: BIOFREEZE TOP (09:45)
[2017-04-04] MEDS: LIDOCAINE 5% OINT 30 GM TOP (15:01)
[2017-04-04] MEDS: WARFARIN SOD 3 MG TAB PO (18:00)
[2017-04-04] MEDS: ATORVASTATIN 20 MG TAB PO (20:45)
[2017-04-04] MEDS: CINACALCET 30 MG TAB (SENSIPAR) PO (20:46)
[2017-04-05] MEDS: IPRATROPIUM 0.5MG/ALBUTEROL 2.5MG INH SOL UD 3ML (DUONEB)(J7620) NEB ×6 (03:41→20:00)
[2017-04-05] MEDS: METOCLOPRAMIDE INJ 10MG/2ML VIAL (J2765) IV ×4 (04:52→23:23)
[2017-04-05] MEDS: SLF 3 ML SYR IV ×3 (04:53→19:56)
[2017-04-05] MEDS: SENOKOT S TAB PO ×2 (04:53→19:52)
[2017-04-05] MEDS: FAMOTIDINE 20 MG TAB PO ×2 (04:53→19:52)
[2017-04-05] MEDS: ATENOLOL 50 MG TAB PO ×2 (04:57→19:52)
[2017-04-05] MEDS: rOPINIRole 1MG TAB PO ×2 (05:01→17:33)
[2017-04-05] MEDS: BISACODYL 10 MG SUPP PR (05:01)
[2017-04-05] MEDS: VENLAFAXINE **XR** 37.5 MG CAPSULE PO (05:05)
[2017-04-05 06:47] LABS: BASO % 0.2 % (0.0-1.0); EOS # 0.1 10^3/uL (0.0-0.50); EOS % 1.4 % (0.0-3.0); HEMATOCRIT 34.8 % (36.0-47.0); HEMOGLOBIN 11.7 g/dl (12.0-16.0); IMMATURE GRANULOCYTE # 0.2 10^3/uL (0-0); LYMPH # 1.3 10^3/uL (1.5-4.5); LYMPH % 14.5 % (24.0-44.0); MEAN CORPUSCULAR HEMOGLOBIN 34.6 pg (27.0-33.0); MEAN CORPUSCULAR HGB CONC 33.6 g/dl (32.0-36.5); MONO # 0.6 10^3/uL (0.0-0.8); MONO % 6.7 % (0.0-5.0); NEUTROPHILS # 6.8 10^3/uL (1.8-7.7); NEUTROPHILS % 75.2 % (36.0-66.0); PLATELET COUNT, AUTOMATED 269 10^3/uL (150-450); RED BLOOD COUNT 3.38 10^6/uL (4.00-5.40); RED CELL DISTRIBUTION WIDTH 12.9 % (11.5-14.5)
[2017-04-05 07:02] LABS: INR 2.88; PROTHROMBIN TIME 31.4 SECONDS (12.4-14.5)
[2017-04-05 07:03] LABS: ANION GAP 10 MEQ/L (8-16); BLOOD UREA NITROGEN 57 MG/DL (7-18); CALCIUM LEVEL 7.3 MG/DL (8.8-10.2); CARBON DIOXIDE LEVEL 27 MEQ/L (21-32); CHLORIDE LEVEL 99 MEQ/L (98-107); CREATININE FOR GFR 4.94 MG/DL (0.55-1.02); GLOMERULAR FILTRATION RATE 9.2 (>39); GLUCOSE, FASTING 90 MG/DL (83-110); POTASSIUM SERUM 4.1 MEQ/L (3.5-5.1); SODIUM LEVEL 136 MEQ/L (136-145)
[2017-04-05] MEDS: predniSONE 10 MG TAB PO (08:21)
[2017-04-05] MEDS: NORCO, ANEXSIA 5/325MG TABLET (HYDROcodone/ACETAMINOPHEN) PO ×2 (08:21→17:34)
[2017-04-05] MEDS: ADVAIR HFA 115/21MCG INHALER INH ×2 (09:00→21:52)
[2017-04-05] MEDS: NYSTATIN 500,000 U/5 ML SUSP UDC SS ×4 (12:26→19:51)
[2017-04-05] MEDS: TIOTROPIUM INHALER/CAPSULE (SPIRIVA) INH (14:06)
[2017-04-05] MEDS: LIDOCAINE 1% SDV 5 ML VIAL SQ (16:34)
[2017-04-05] MEDS: HEPARIN 1,000 UNITS/ML 10ML VIAL (FOR RADIOLOGY& DIALYSIS ONLY) IV (16:34)
[2017-04-05] MEDS: WARFARIN SOD 3 MG TAB PO (17:34)
[2017-04-05] MEDS: ATORVASTATIN 20 MG TAB PO (19:51)
[2017-04-05] MEDS: CINACALCET 30 MG TAB (SENSIPAR) PO (19:55)
[2017-04-06] MEDS: IPRATROPIUM 0.5MG/ALBUTEROL 2.5MG INH SOL UD 3ML (DUONEB)(J7620) NEB ×6 (04:00→22:22)
[2017-04-06] MEDS: METOCLOPRAMIDE INJ 10MG/2ML VIAL (J2765) IV ×4 (05:01→21:19)
[2017-04-06] MEDS: SLF 3 ML SYR IV ×3 (05:01→21:20)
[2017-04-06] MEDS: BISACODYL 10 MG SUPP PR ×2 (05:03→08:32)
[2017-04-06] MEDS: NORCO, ANEXSIA 5/325MG TABLET (HYDROcodone/ACETAMINOPHEN) PO (05:53)
[2017-04-06 06:33] LABS: BASO % 0.3 % (0.0-1.0); EOS # 0.1 10^3/uL (0.0-0.50); EOS % 1.5 % (0.0-3.0); HEMATOCRIT 35.4 % (36.0-47.0); HEMOGLOBIN 11.5 g/dl (12.0-16.0); IMMATURE GRANULOCYTE # 0.2 10^3/uL (0-0); IMMATURE GRANULOCYTE % 1.9 % (0-0); LYMPH # 1.3 10^3/uL (1.5-4.5); LYMPH % 13.5 % (24.0-44.0); MEAN CORPUSCULAR HEMOGLOBIN 34.2 pg (27.0-33.0); MEAN CORPUSCULAR HGB CONC 32.5 g/dl (32.0-36.5); MEAN CORPUSCULAR VOLUME 105.4 fl (80.0-96.0); MONO # 0.9 10^3/uL (0.0-0.8); MONO % 9.4 % (0.0-5.0); NEUTROPHILS # 6.8 10^3/uL (1.8-7.7); NEUTROPHILS % 73.4 % (36.0-66.0); PLATELET COUNT, AUTOMATED 237 10^3/uL (150-450); RED BLOOD COUNT 3.36 10^6/uL (4.00-5.40); RED CELL DISTRIBUTION WIDTH 13.2 % (11.5-14.5); WHITE BLOOD COUNT 9.3 10^3/uL (4.0-10.0)
[2017-04-06 06:49] LABS: INR 2.38; PROTHROMBIN TIME 26.9 SECONDS (12.4-14.5)
[2017-04-06 06:54] LABS: ANION GAP 8 MEQ/L (8-16); BLOOD UREA NITROGEN 35 MG/DL (7-18); CARBON DIOXIDE LEVEL 32 MEQ/L (21-32); CHLORIDE LEVEL 99 MEQ/L (98-107); CREATININE FOR GFR 3.57 MG/DL (0.55-1.02); GLOMERULAR FILTRATION RATE 13.4 (>39); GLUCOSE, FASTING 84 MG/DL (83-110); POTASSIUM SERUM 4.1 MEQ/L (3.5-5.1); SODIUM LEVEL 139 MEQ/L (136-145)
[2017-04-06] MEDS: TIOTROPIUM INHALER/CAPSULE (SPIRIVA) INH (08:04)
[2017-04-06] MEDS: ADVAIR HFA 115/21MCG INHALER INH ×2 (08:04→21:51)
[2017-04-06] MEDS: NYSTATIN 500,000 U/5 ML SUSP UDC SS ×4 (08:27→21:19)
[2017-04-06] MEDS: ATENOLOL 50 MG TAB PO ×2 (08:28→21:20)
[2017-04-06] MEDS: rOPINIRole 1MG TAB PO ×2 (08:28→17:26)
[2017-04-06] MEDS: VENLAFAXINE **XR** 37.5 MG CAPSULE PO (08:28)
[2017-04-06] MEDS: predniSONE 10 MG TAB PO (08:28)
[2017-04-06] MEDS: FAMOTIDINE 20 MG TAB PO ×2 (08:29→21:19)
[2017-04-06] MEDS: SENOKOT S TAB PO ×2 (08:31→21:19)
[2017-04-06] MEDS: PERCOCET 5MG/325MG TAB PO ×2 (12:26→18:34)
[2017-04-06] MEDS: WARFARIN SOD 3 MG TAB PO (17:26)
[2017-04-06] MEDS: ATORVASTATIN 20 MG TAB PO (21:19)
[2017-04-06] MEDS: CINACALCET 30 MG TAB (SENSIPAR) PO (21:19)
[2017-04-07] MEDS: IPRATROPIUM 0.5MG/ALBUTEROL 2.5MG INH SOL UD 3ML (DUONEB)(J7620) NEB ×2 (02:43)
[2017-04-07] MEDS: METOCLOPRAMIDE INJ 10MG/2ML VIAL (J2765) IV ×3 (04:47→10:00)
[2017-04-07] MEDS: SLF 3 ML SYR IV (04:48)
[2017-04-07 07:10] LABS: BASO % 0.1 % (0.0-1.0); EOS # 0.2 10^3/uL (0.0-0.50); EOS % 1.7 % (0.0-3.0); HEMATOCRIT 34.6 % (36.0-47.0); HEMOGLOBIN 11.5 g/dl (12.0-16.0); IMMATURE GRANULOCYTE # 0.2 10^3/uL (0-0); IMMATURE GRANULOCYTE % 1.6 % (0-0); LYMPH # 1.4 10^3/uL (1.5-4.5); LYMPH % 13.7 % (24.0-44.0); MEAN CORPUSCULAR HEMOGLOBIN 34.7 pg (27.0-33.0); MEAN CORPUSCULAR HGB CONC 33.2 g/dl (32.0-36.5); MEAN CORPUSCULAR VOLUME 104.5 fl (80.0-96.0); MONO # 0.9 10^3/uL (0.0-0.8); MONO % 9.3 % (0.0-5.0); NEUTROPHILS # 7.4 10^3/uL (1.8-7.7); NEUTROPHILS % 73.6 % (36.0-66.0); PLATELET COUNT, AUTOMATED 229 10^3/uL (150-450); RED BLOOD COUNT 3.31 10^6/uL (4.00-5.40); RED CELL DISTRIBUTION WIDTH 13.6 % (11.5-14.5)
[2017-04-07 07:21] LABS: INR 2.06; PROTHROMBIN TIME 23.9 SECONDS (12.4-14.5)
[2017-04-07 07:28] LABS: ANION GAP 11 MEQ/L (8-16); BLOOD UREA NITROGEN 56 MG/DL (7-18); CALCIUM LEVEL 7.7 MG/DL (8.8-10.2); CARBON DIOXIDE LEVEL 27 MEQ/L (21-32); CHLORIDE LEVEL 99 MEQ/L (98-107); CREATININE FOR GFR 4.71 MG/DL (0.55-1.02); GLOMERULAR FILTRATION RATE 9.7 (>39); GLUCOSE, FASTING 80 MG/DL (83-110); POTASSIUM SERUM 4.5 MEQ/L (3.5-5.1); SODIUM LEVEL 137 MEQ/L (136-145)
[2017-04-07] MEDS: VENLAFAXINE **XR** 37.5 MG CAPSULE PO (08:39)
[2017-04-07] MEDS: NYSTATIN 500,000 U/5 ML SUSP UDC SS (08:39)
[2017-04-07] MEDS: FAMOTIDINE 20 MG TAB PO (08:39)
[2017-04-07] MEDS: rOPINIRole 1MG TAB PO (08:39)
[2017-04-07] MEDS: SENOKOT S TAB PO (08:39)
[2017-04-07] MEDS: BISACODYL 10 MG SUPP PR (08:40)
[2017-04-07] MEDS: ATENOLOL 50 MG TAB PO (08:40)
[2017-04-07] MEDS: predniSONE 20 MG TAB PO (08:40)
[2017-04-07] MEDS: ADVAIR HFA 115/21MCG INHALER INH (09:35)
[2017-04-07] MEDS: TIOTROPIUM INHALER/CAPSULE (SPIRIVA) INH (09:35)
== END 2017-04-07 12:35 | DRG 208 ==
LOC: M MSPAV 03-25 00:14 → M PCU 03-28 19:28 → M MS5PR 03-29 17:58 → M ED 16:56 → M ICU 03-26 17:37 → M ED INP 21:44
PROC: 0DC18ZZ Extirpation of Matter from Upper Esophagus, Via Natural or Artificial Opening Endoscopic (ICD-10-PCS; 2017-03-26 15:00)
PROC: 5A1945Z Respiratory Ventilation, 24-96 Consecutive Hours (ICD-10-PCS; principal; 2017-03-26 15:05)
DX: J69.0 Pneumonitis due to inhalation of food and vomit (principal); J96.01 Acute respiratory failure with hypoxia; N18.6 End stage renal disease; J81.1 Chronic pulmonary edema; J44.1 Chronic obstructive pulmonary disease with (acute) exacerbation; N25.81 Secondary hyperparathyroidism of renal origin; E87.1 Hypo-osmolality and hyponatremia; B37.0 Candidal stomatitis; E78.5 Hyperlipidemia, unspecified; F32.9 Major depressive disorder, single episode, unspecified; K21.9 Gastro-esophageal reflux disease without esophagitis; G25.81 Restless legs syndrome; M79.7 Fibromyalgia; E03.9 Hypothyroidism, unspecified; Z79.899 Other long term (current) drug therapy; Z88.0 Allergy status to penicillin; Z88.8 Allergy status to other drugs, medicaments and biological substances; Z87.891 Personal history of nicotine dependence; Z91.013 Allergy to seafood; D63.1 Anemia in chronic kidney disease; I48.91 Unspecified atrial fibrillation; K59.00 Constipation, unspecified; K44.9 Diaphragmatic hernia without obstruction or gangrene; K57.30 Diverticulosis of large intestine without perforation or abscess without bleeding; I50.9 Heart failure, unspecified; T18.128A Food in esophagus causing other injury, initial encounter; R13.10 Dysphagia, unspecified

== ENCOUNTER 2017-05-08 16:28 | Inpatient (IN) | payer MEDICARE, BC, OTHER ==
[2017-05-08 17:40] LABS: BASO # 0.1 10^3/uL (0.0-0.2); BASO % 1.2 % (0.0-1.0); EOS # 0.1 10^3/uL (0.0-0.50); HEMATOCRIT 34.7 % (36.0-47.0); HEMOGLOBIN 11.1 g/dl (12.0-16.0); IMMATURE GRANULOCYTE % 0.7 % (0-3.0); LYMPH # 1.4 10^3/uL (1.5-4.5); LYMPH % 23.5 % (24.0-44.0); MEAN CORPUSCULAR HEMOGLOBIN 34.9 pg (27.0-33.0); MEAN CORPUSCULAR VOLUME 109.1 fl (80.0-96.0); MONO # 0.9 10^3/uL (0.0-0.8); MONO % 14.5 % (0.0-5.0); NEUTROPHILS # 3.5 10^3/uL (1.8-7.7); NEUTROPHILS % 59.1 % (36.0-66.0); PLATELET COUNT, AUTOMATED 240 10^3/uL (150-450); RED BLOOD COUNT 3.18 10^6/uL (4.00-5.40); RED CELL DISTRIBUTION WIDTH 14.6 % (11.5-14.5); WHITE BLOOD COUNT 5.9 10^3/uL (4.0-10.0)
[2017-05-08 17:55] LABS: AMMONIA < 10 uMOL/L (<32)
[2017-05-08 17:58] LABS: INR 1.05; PARTIAL THROMBOPLASTIN TIME 27.5 SECONDS (26.8-37.9); PROTHROMBIN TIME 13.8 SECONDS (12.4-14.5)
[2017-05-08 18:01] LABS: ALBUMIN 3.3 GM/DL (3.2-5.2); ALBUMIN/GLOBULIN RATIO 0.92 (1.00-1.93); ALKALINE PHOSPHATASE 56 U/L (45-117); ALT/SGPT 45 U/L (12-78); ANION GAP 8 MEQ/L (8-16); AST/SGOT 36 U/L (7-37); BILIRUBIN,DIRECT 0.1 MG/DL (0.0-0.2); BILIRUBIN,TOTAL 0.4 MG/DL (0.2-1.0); BLOOD UREA NITROGEN 16 MG/DL (7-18); CALCIUM LEVEL 8.7 MG/DL (8.8-10.2); CARBON DIOXIDE LEVEL 30 MEQ/L (21-32); CHLORIDE LEVEL 101 MEQ/L (98-107); CPK CREATINE PHOSPHOKINASE 91 U/L (26-192); CREATININE FOR GFR 1.78 MG/DL (0.55-1.30); ETHYL ALCOHOL (ETHANOL) 0.003 % (0.000-0.010); GLOMERULAR FILTRATION RATE 29.8 (>39); GLUCOSE, FASTING 99 MG/DL (70-100); POTASSIUM SERUM 3.7 MEQ/L (3.5-5.1); SODIUM LEVEL 139 MEQ/L (136-145); TOTAL PROTEIN 6.9 GM/DL (6.4-8.2); TROPONIN I 0.02 NG/ML (< 0.10)
[2017-05-08 18:06] LABS: CK-MB VALUE MASS 2.3 NG/ML (0.0-3.6); MB/CK RELATIVE INDEX 2.52 (< OR =4)
[2017-05-08] MEDS: rOPINIRole 1MG TAB PO (22:36)
[2017-05-08] MEDS: APIXABAN 5 MG TAB (ELIQUIS) PO (22:36)
[2017-05-08] MEDS: CINACALCET 30 MG TAB (SENSIPAR) PO (22:36)
[2017-05-08] MEDS: ATENOLOL 50 MG TAB PO (22:36)
[2017-05-08] MEDS: FAMOTIDINE 20 MG TAB PO (22:36)
[2017-05-09 00:48] LABS: CPK CREATINE PHOSPHOKINASE 67 U/L (26-192); TROPONIN I 0.02 NG/ML (< 0.10)
[2017-05-09 01:00] LABS: CK-MB VALUE MASS 1.7 NG/ML (0.0-3.6); DIGOXIN LEVEL < 0.1 NG/ML (0.5-2.0); MB/CK RELATIVE INDEX 2.53 (< OR =4)
[2017-05-09] MEDS: LEVOTHYROXINE 12.5MCG PER 1/2 TAB (0.0125MG) PO (06:00)
[2017-05-09 07:32] LABS: HEMATOCRIT 32.4 % (36.0-47.0); HEMOGLOBIN 10.4 g/dl (12.0-16.0); MEAN CORPUSCULAR HEMOGLOBIN 35.1 pg (27.0-33.0); MEAN CORPUSCULAR HGB CONC 32.1 g/dl (32.0-36.5); MEAN CORPUSCULAR VOLUME 109.5 fl (80.0-96.0); PLATELET COUNT, AUTOMATED 213 10^3/uL (150-450); RED BLOOD COUNT 2.96 10^6/uL (4.00-5.40); RED CELL DISTRIBUTION WIDTH 14.6 % (11.5-14.5); WHITE BLOOD COUNT 5.5 10^3/uL (4.0-10.0)
[2017-05-09 07:49] LABS: ANION GAP 8 MEQ/L (8-16); BLOOD UREA NITROGEN 25 MG/DL (7-18); CALCIUM LEVEL 8.4 MG/DL (8.8-10.2); CARBON DIOXIDE LEVEL 28 MEQ/L (21-32); CHLORIDE LEVEL 103 MEQ/L (98-107); CK-MB VALUE MASS 1.3 NG/ML (0.0-3.6); CPK CREATINE PHOSPHOKINASE 58 U/L (26-192); GLOMERULAR FILTRATION RATE 21.1 (>39); GLUCOSE, FASTING 101 MG/DL (70-100); MAGNESIUM LEVEL 2.2 MG/DL (1.8-2.4); MB/CK RELATIVE INDEX 2.24 (< OR =4); POTASSIUM SERUM 4.1 MEQ/L (3.5-5.1); SODIUM LEVEL 139 MEQ/L (136-145); TROPONIN I 0.02 NG/ML (< 0.10)
[2017-05-09] MEDS: ATENOLOL 50 MG TAB PO ×2 (08:58→20:49)
[2017-05-09] MEDS ORDERED: DIGOXIN 0.125 MG TAB PO (09:00)
[2017-05-09] MEDS: TIOTROPIUM INHALER/CAPSULE (SPIRIVA) INH (09:07)
[2017-05-09] MEDS: ADVAIR HFA 115/21MCG INHALER INH ×2 (09:07→20:01)
[2017-05-09] MEDS: FAMOTIDINE 20 MG TAB PO ×2 (09:21→20:47)
[2017-05-09] MEDS: APIXABAN 5 MG TAB (ELIQUIS) PO ×2 (09:21→20:47)
[2017-05-09] MEDS: rOPINIRole 1MG TAB PO ×2 (09:21→20:48)
[2017-05-09] MEDS ORDERED: SODIUM CHLORIDE 0.9% 1000 ML IV (10:00)
[2017-05-09] MEDS: DIGOXIN INJ 0.5 MG/2 ML AMP (J1160) IV (10:14)
[2017-05-09] MEDS: CINACALCET 30 MG TAB (SENSIPAR) PO (20:47)
[2017-05-10 05:49] LABS: HEMATOCRIT 30.3 % (36.0-47.0); HEMOGLOBIN 9.9 g/dl (12.0-16.0); MEAN CORPUSCULAR HEMOGLOBIN 34.9 pg (27.0-33.0); MEAN CORPUSCULAR HGB CONC 32.7 g/dl (32.0-36.5); MEAN CORPUSCULAR VOLUME 106.7 fl (80.0-96.0); PLATELET COUNT, AUTOMATED 233 10^3/uL (150-450); RED BLOOD COUNT 2.84 10^6/uL (4.00-5.40); RED CELL DISTRIBUTION WIDTH 14.3 % (11.5-14.5); WHITE BLOOD COUNT 5.7 10^3/uL (4.0-10.0)
[2017-05-10 06:24] LABS: DIGOXIN LEVEL 0.4 NG/ML (0.5-2.0)
[2017-05-10] MEDS: LEVOTHYROXINE 12.5MCG PER 1/2 TAB (0.0125MG) PO (06:46)
[2017-05-10] MEDS: ATENOLOL 50 MG TAB PO (06:47)
[2017-05-10] MEDS: DIGOXIN INJ 0.5 MG/2 ML AMP (J1160) IV (06:49)
[2017-05-10] MEDS: FAMOTIDINE 20 MG TAB PO ×2 (07:38→21:07)
[2017-05-10] MEDS: APIXABAN 5 MG TAB (ELIQUIS) PO ×2 (07:38→21:07)
[2017-05-10] MEDS: rOPINIRole 1MG TAB PO ×2 (07:38→21:07)
[2017-05-10] MEDS: TIOTROPIUM INHALER/CAPSULE (SPIRIVA) INH (07:41)
[2017-05-10] MEDS: ADVAIR HFA 115/21MCG INHALER INH ×2 (07:41→21:00)
[2017-05-10] MEDS: LIDOCAINE 1% SDV 5 ML VIAL SQ (11:15)
[2017-05-10] MEDS: HEPARIN 1,000 UNITS/ML 10ML VIAL (FOR RADIOLOGY& DIALYSIS ONLY) IV (11:15)
[2017-05-10] MEDS: DIGOXIN 0.125 MG TAB PO (12:48)
[2017-05-10] MEDS: METOPROLOL TART 25 MG TABLET PO ×2 (12:54→17:36)
[2017-05-10] MEDS ORDERED: PERCOCET 5MG/325MG TAB PO (15:15)
[2017-05-10] MEDS: CINACALCET 30 MG TAB (SENSIPAR) PO (21:06)
[2017-05-11] MEDS: METOPROLOL TART 25 MG TABLET PO ×2 (00:58→05:32)
[2017-05-11] MEDS: LEVOTHYROXINE 12.5MCG PER 1/2 TAB (0.0125MG) PO (05:31)
[2017-05-11 06:05] LABS: HEMOGLOBIN 11.3 g/dl (12.0-16.0); MEAN CORPUSCULAR HEMOGLOBIN 35.2 pg (27.0-33.0); MEAN CORPUSCULAR HGB CONC 32.3 g/dl (32.0-36.5); PLATELET COUNT, AUTOMATED 253 10^3/uL (150-450); RED BLOOD COUNT 3.21 10^6/uL (4.00-5.40); RED CELL DISTRIBUTION WIDTH 14.4 % (11.5-14.5); WHITE BLOOD COUNT 7.4 10^3/uL (4.0-10.0)
[2017-05-11] MEDS ORDERED: ATENOLOL 25 MG TAB PO ×2 (06:30→21:00)
[2017-05-11 06:43] LABS: DIGOXIN LEVEL 1.2 NG/ML (0.5-2.0)
[2017-05-11 06:43] LABS: MAGNESIUM LEVEL 2.3 MG/DL (1.8-2.4)
[2017-05-11] MEDS ORDERED: CIPROFLOXACIN/D5W 400 MG/200 ML BAG (J0744) As Ordered (06:45)
[2017-05-11] MEDS: APIXABAN 5 MG TAB (ELIQUIS) PO ×2 (09:17→20:54)
[2017-05-11] MEDS: rOPINIRole 1MG TAB PO ×2 (09:18→20:53)
[2017-05-11] MEDS: FAMOTIDINE 20 MG TAB PO ×2 (09:18→20:54)
[2017-05-11] MEDS: DIGOXIN 0.125 MG TAB PO (09:18)
[2017-05-11] MEDS: ATENOLOL 25 MG TAB PO ×2 (09:19→20:54)
[2017-05-11] MEDS: TIOTROPIUM INHALER/CAPSULE (SPIRIVA) INH (12:52)
[2017-05-11] MEDS: ADVAIR HFA 115/21MCG INHALER INH ×2 (12:52→20:31)
[2017-05-11] MEDS: CINACALCET 30 MG TAB (SENSIPAR) PO (20:53)
[2017-05-12] MEDS: LEVOTHYROXINE 12.5MCG PER 1/2 TAB (0.0125MG) PO (05:30)
[2017-05-12 06:11] LABS: HEMATOCRIT 32.6 % (36.0-47.0); HEMOGLOBIN 10.6 g/dl (12.0-16.0); MEAN CORPUSCULAR HGB CONC 32.5 g/dl (32.0-36.5); MEAN CORPUSCULAR VOLUME 107.6 fl (80.0-96.0); PLATELET COUNT, AUTOMATED 246 10^3/uL (150-450); RED BLOOD COUNT 3.03 10^6/uL (4.00-5.40); RED CELL DISTRIBUTION WIDTH 14.4 % (11.5-14.5); WHITE BLOOD COUNT 6.2 10^3/uL (4.0-10.0)
[2017-05-12 06:42] LABS: ANION GAP 9 MEQ/L (8-16); CALCIUM LEVEL 8.1 MG/DL (8.8-10.2); CARBON DIOXIDE LEVEL 25 MEQ/L (21-32); CHLORIDE LEVEL 105 MEQ/L (98-107); CREATININE FOR GFR 3.57 MG/DL (0.55-1.30); DIGOXIN LEVEL 1.3 NG/ML (0.5-2.0); GLOMERULAR FILTRATION RATE 13.4 (>39); GLUCOSE, FASTING 86 MG/DL (70-100); MAGNESIUM LEVEL 2.1 MG/DL (1.8-2.4); POTASSIUM SERUM 4.6 MEQ/L (3.5-5.1); SODIUM LEVEL 139 MEQ/L (136-145)
[2017-05-12 06:50] LABS: BLOOD UREA NITROGEN 50 MG/DL (7-18)
[2017-05-12] MEDS: rOPINIRole 1MG TAB PO ×2 (08:47→21:06)
[2017-05-12] MEDS: DIGOXIN 0.125 MG TAB PO (08:48)
[2017-05-12] MEDS: APIXABAN 5 MG TAB (ELIQUIS) PO ×2 (08:48→21:06)
[2017-05-12] MEDS: FAMOTIDINE 20 MG TAB PO ×2 (08:48→21:05)
[2017-05-12] MEDS: ATENOLOL 25 MG TAB PO ×2 (08:50→21:05)
[2017-05-12] MEDS: ADVAIR HFA 115/21MCG INHALER INH ×2 (09:44→21:32)
[2017-05-12] MEDS: TIOTROPIUM INHALER/CAPSULE (SPIRIVA) INH (09:44)
[2017-05-12] MEDS: CINACALCET 30 MG TAB (SENSIPAR) PO (21:05)
[2017-05-13] MEDS: LEVOTHYROXINE 12.5MCG PER 1/2 TAB (0.0125MG) PO (05:48)
[2017-05-13] MEDS: ATENOLOL 25 MG TAB PO ×2 (05:49→20:08)
[2017-05-13] MEDS: rOPINIRole 1MG TAB PO ×2 (05:50→20:07)
[2017-05-13] MEDS: DIGOXIN 0.125 MG TAB PO (05:50)
[2017-05-13] MEDS: FAMOTIDINE 20 MG TAB PO ×2 (05:50→20:07)
[2017-05-13] MEDS: APIXABAN 5 MG TAB (ELIQUIS) PO ×2 (05:51→20:07)
[2017-05-13 06:50] LABS: HEMATOCRIT 32.3 % (36.0-47.0); HEMOGLOBIN 10.4 g/dl (12.0-16.0); MEAN CORPUSCULAR HEMOGLOBIN 35.3 pg (27.0-33.0); MEAN CORPUSCULAR HGB CONC 32.2 g/dl (32.0-36.5); MEAN CORPUSCULAR VOLUME 109.5 fl (80.0-96.0); PLATELET COUNT, AUTOMATED 243 10^3/uL (150-450); RED BLOOD COUNT 2.95 10^6/uL (4.00-5.40); RED CELL DISTRIBUTION WIDTH 14.5 % (11.5-14.5)
[2017-05-13 07:25] LABS: ANION GAP 11 MEQ/L (8-16); BLOOD UREA NITROGEN 66 MG/DL (7-18); CALCIUM LEVEL 7.9 MG/DL (8.8-10.2); CARBON DIOXIDE LEVEL 24 MEQ/L (21-32); CHLORIDE LEVEL 105 MEQ/L (98-107); CREATININE FOR GFR 3.62 MG/DL (0.55-1.30); DIGOXIN LEVEL 1.5 NG/ML (0.5-2.0); GLOMERULAR FILTRATION RATE 13.1 (>39); GLUCOSE, FASTING 89 MG/DL (70-100); POTASSIUM SERUM 4.6 MEQ/L (3.5-5.1); SODIUM LEVEL 140 MEQ/L (136-145)
[2017-05-13] MEDS: LIDOCAINE 1% SDV 5 ML VIAL SQ (11:45)
[2017-05-13] MEDS: HEPARIN 1,000 UNITS/ML 10ML VIAL (FOR RADIOLOGY& DIALYSIS ONLY) XX (13:32)
[2017-05-13] MEDS: CINACALCET 30 MG TAB (SENSIPAR) PO (20:07)
[2017-05-13] MEDS: ADVAIR HFA 115/21MCG INHALER INH (22:08)
[2017-05-14] MEDS: LEVOTHYROXINE 12.5MCG PER 1/2 TAB (0.0125MG) PO (05:46)
[2017-05-14 07:03] LABS: HEMATOCRIT 36.8 % (36.0-47.0); HEMOGLOBIN 11.8 g/dl (12.0-16.0); MEAN CORPUSCULAR HEMOGLOBIN 34.7 pg (27.0-33.0); MEAN CORPUSCULAR HGB CONC 32.1 g/dl (32.0-36.5); MEAN CORPUSCULAR VOLUME 108.2 fl (80.0-96.0); PLATELET COUNT, AUTOMATED 296 10^3/uL (150-450); RED CELL DISTRIBUTION WIDTH 14.4 % (11.5-14.5); WHITE BLOOD COUNT 5.8 10^3/uL (4.0-10.0)
[2017-05-14 07:31] LABS: ANION GAP 8 MEQ/L (8-16); BLOOD UREA NITROGEN 33 MG/DL (7-18); CALCIUM LEVEL 8.2 MG/DL (8.8-10.2); CARBON DIOXIDE LEVEL 30 MEQ/L (21-32); CHLORIDE LEVEL 101 MEQ/L (98-107); CREATININE FOR GFR 2.58 MG/DL (0.55-1.30); DIGOXIN LEVEL 1.5 NG/ML (0.5-2.0); GLOMERULAR FILTRATION RATE 19.4 (>39); GLUCOSE, FASTING 84 MG/DL (70-100); MAGNESIUM LEVEL 2.1 MG/DL (1.8-2.4); POTASSIUM SERUM 3.7 MEQ/L (3.5-5.1); SODIUM LEVEL 139 MEQ/L (136-145)
[2017-05-14] MEDS: rOPINIRole 1MG TAB PO (08:33)
[2017-05-14] MEDS: FAMOTIDINE 20 MG TAB PO (08:33)
[2017-05-14] MEDS: ATENOLOL 25 MG TAB PO (08:33)
[2017-05-14] MEDS: APIXABAN 5 MG TAB (ELIQUIS) PO (08:33)
[2017-05-14] MEDS: DIGOXIN 0.125 MG TAB PO (08:34)
[2017-05-14] MEDS: TIOTROPIUM INHALER/CAPSULE (SPIRIVA) INH ×2 (08:41→08:43)
[2017-05-14] MEDS: ADVAIR HFA 115/21MCG INHALER INH (08:41)
== END 2017-05-14 10:33 | disposition home or self-care (01) | DRG 70 ==
LOC: M MSPAV 05-10 19:01 → M PCU 05-09 14:09 → M ED 16:28 → M ED INP 21:05
PROC: 5A1D70Z Performance of Urinary Filtration, Intermittent, Less than 6 Hours Per Day (ICD-10-PCS; principal; 2017-05-10)
DX: G93.41 Metabolic encephalopathy (principal); N18.6 End stage renal disease; I48.91 Unspecified atrial fibrillation; J44.9 Chronic obstructive pulmonary disease, unspecified; I12.0 Hypertensive chronic kidney disease with stage 5 chronic kidney disease or end stage renal disease; E03.9 Hypothyroidism, unspecified; Z79.01 Long term (current) use of anticoagulants; Z95.828 Presence of other vascular implants and grafts; Z90.710 Acquired absence of both cervix and uterus; Z87.891 Personal history of nicotine dependence; Z79.899 Other long term (current) drug therapy; Z88.1 Allergy status to other antibiotic agents; Z91.013 Allergy to seafood; Z88.0 Allergy status to penicillin; Z88.8 Allergy status to other drugs, medicaments and biological substances; Z99.2 Dependence on renal dialysis

== ENCOUNTER 2017-05-15 18:44 | Inpatient (IN) | payer MEDICARE, BC, OTHER ==
[2017-05-15] MEDS: ALBUTEROL SULFATE 2.5 MG/0.5 ML INH NEB SOLN NEB ×6 (20:04→20:05)
[2017-05-15 20:19] LABS: BASO % 0.5 % (0.0-1.0); EOS # 0.1 10^3/uL (0.0-0.50); EOS % 0.6 % (0.0-3.0); HEMATOCRIT 36.3 % (36.0-47.0); HEMOGLOBIN 11.8 g/dl (12.0-16.0); IMMATURE GRANULOCYTE % 0.5 % (0-3.0); LYMPH # 1.1 10^3/uL (1.5-4.5); LYMPH % 13.6 % (24.0-44.0); MEAN CORPUSCULAR HEMOGLOBIN 35.2 pg (27.0-33.0); MEAN CORPUSCULAR HGB CONC 32.5 g/dl (32.0-36.5); MEAN CORPUSCULAR VOLUME 108.4 fl (80.0-96.0); MONO % 13.2 % (0.0-5.0); NEUTROPHILS # 5.6 10^3/uL (1.8-7.7); NEUTROPHILS % 71.6 % (36.0-66.0); PLATELET COUNT, AUTOMATED 246 10^3/uL (150-450); RED BLOOD COUNT 3.35 10^6/uL (4.00-5.40); RED CELL DISTRIBUTION WIDTH 14.1 % (11.5-14.5); WHITE BLOOD COUNT 7.8 10^3/uL (4.0-10.0)
[2017-05-15 20:28] LABS: VENOUS BASE EXCESS 0.4 (-2.0-2.0); VENOUS HCO3 25.2 MEQ/L (23.0-27.0); VENOUS O2 SATURATION 54.2 % (60.0-80.0); VENOUS PARTIAL PRESSURE CO2 41.4 mmHg (38.0-50.0); VENOUS PARTIAL PRESSURE O2 31.4 mmHg (30.0-50.0); VENOUS PH 7.403 UNITS (7.330-7.430); VENOUS STANDARD HCO3 23.9 MEQ/L; VENOUS TOTAL CO2 26.5 MEQ/L (24.0-28.0)
[2017-05-15 20:35] LABS: ANION GAP 8 MEQ/L (8-16); BLOOD UREA NITROGEN 19 MG/DL (7-18); CALCIUM LEVEL 8.5 MG/DL (8.8-10.2); CARBON DIOXIDE LEVEL 30 MEQ/L (21-32); CHLORIDE LEVEL 102 MEQ/L (98-107); GLOMERULAR FILTRATION RATE 29.4 (>39); GLUCOSE, FASTING 95 MG/DL (70-100); POTASSIUM SERUM 4.1 MEQ/L (3.5-5.1); SODIUM LEVEL 140 MEQ/L (136-145)
[2017-05-15 20:44] LABS: INFLUENZA A AMPLIFICATION NEGATIVE (NEGATIVE); INFLUENZA B AMPLIFICATION NEGATIVE (NEGATIVE)
[2017-05-15] MEDS: ADVAIR HFA 115/21MCG INHALER INH ×2 (21:00)
[2017-05-15 21:04] LABS: CPK CREATINE PHOSPHOKINASE 84 U/L (26-192)
[2017-05-15] MEDS ORDERED: ISOVUE-370 76% 100ML VIAL (Q9967) As Ordered ×2 (21:13)
[2017-05-15 21:31] LABS: MB/CK RELATIVE INDEX 2.38 (< OR =4)
[2017-05-15 21:48] LABS: TROPONIN I 0.05 NG/ML (< 0.10)
[2017-05-16] MEDS: ALBUTEROL SULFATE 2.5 MG/0.5 ML INH NEB SOLN NEB ×2 (00:24)
[2017-05-16] MEDS: rOPINIRole 1MG TAB PO ×4 (00:33→08:30)
[2017-05-16] MEDS: predniSONE 20 MG TAB PO ×4 (00:34→08:29)
[2017-05-16] MEDS: ATENOLOL 25 MG TAB PO ×4 (00:34→08:32)
[2017-05-16] MEDS: APIXABAN 5 MG TAB (ELIQUIS) PO ×4 (00:34→08:30)
[2017-05-16] MEDS: CINACALCET 30 MG TAB (SENSIPAR) PO ×2 (00:35)
[2017-05-16] MEDS: FAMOTIDINE 20 MG TAB PO ×4 (00:35→08:30)
[2017-05-16] MEDS: ACETAMINOPHEN TAB 650MG DOSE (2X325MG) PO ×2 (06:26)
[2017-05-16 07:00] LABS: HEMATOCRIT 33.4 % (36.0-47.0); HEMOGLOBIN 10.8 g/dl (12.0-16.0); MEAN CORPUSCULAR HEMOGLOBIN 34.7 pg (27.0-33.0); MEAN CORPUSCULAR HGB CONC 32.3 g/dl (32.0-36.5); MEAN CORPUSCULAR VOLUME 107.4 fl (80.0-96.0); PLATELET COUNT, AUTOMATED 237 10^3/uL (150-450); RED BLOOD COUNT 3.11 10^6/uL (4.00-5.40); RED CELL DISTRIBUTION WIDTH 14.3 % (11.5-14.5); WHITE BLOOD COUNT 9.2 10^3/uL (4.0-10.0)
[2017-05-16 07:29] LABS: ANION GAP 8 MEQ/L (8-16); BLOOD UREA NITROGEN 31 MG/DL (7-18); CALCIUM LEVEL 8.1 MG/DL (8.8-10.2); CARBON DIOXIDE LEVEL 28 MEQ/L (21-32); CHLORIDE LEVEL 104 MEQ/L (98-107); CREATININE FOR GFR 2.64 MG/DL (0.55-1.30); FREE T4 1.15 NG/DL (0.76-1.46); GLOMERULAR FILTRATION RATE 18.9 (>39); GLUCOSE, FASTING 167 MG/DL (70-100); MAGNESIUM LEVEL 2.1 MG/DL (1.8-2.4); POTASSIUM SERUM 4.2 MEQ/L (3.5-5.1); SODIUM LEVEL 140 MEQ/L (136-145)
[2017-05-16] MEDS: VENLAFAXINE **XR** 37.5 MG CAPSULE PO ×2 (08:29)
[2017-05-16] MEDS: ADVAIR HFA 115/21MCG INHALER INH ×4 (08:34→21:00)
[2017-05-16 09:03] LABS: INR 1.41; PROTHROMBIN TIME 17.5 SECONDS (12.4-14.5)
[2017-05-16 09:07] LABS: AMMONIA < 10 uMOL/L (<32)
[2017-05-16 09:10] LABS: ALBUMIN 3.2 GM/DL (3.2-5.2); ALBUMIN/GLOBULIN RATIO 0.97 (1.00-1.93); ALKALINE PHOSPHATASE 51 U/L (45-117); ALT/SGPT 26 U/L (12-78); AST/SGOT 22 U/L (7-37); BILIRUBIN,DIRECT 0.2 MG/DL (0.0-0.2); BILIRUBIN,TOTAL 0.4 MG/DL (0.2-1.0); C REACTIVE PROTEIN QUANTITATIV 7.93 MG/DL (0.00-0.30); TOTAL PROTEIN 6.5 GM/DL (6.4-8.2)
[2017-05-17] MEDS: ADVAIR HFA 115/21MCG INHALER INH ×2 (09:00)
[2017-05-17] MEDS ORDERED: DIGOXIN 0.125 MG TAB PO ×2 (09:00)
== END 2017-05-17 21:20 | DRG 190 ==
LOC: M ED 18:44 → M ED INP 23:46
DX: J44.1 Chronic obstructive pulmonary disease with (acute) exacerbation (principal); N18.6 End stage renal disease; G93.41 Metabolic encephalopathy; B97.81 Human metapneumovirus as the cause of diseases classified elsewhere; I12.0 Hypertensive chronic kidney disease with stage 5 chronic kidney disease or end stage renal disease; E03.9 Hypothyroidism, unspecified; I48.91 Unspecified atrial fibrillation; Z99.2 Dependence on renal dialysis; Z90.710 Acquired absence of both cervix and uterus; Z95.828 Presence of other vascular implants and grafts; Z87.891 Personal history of nicotine dependence; Z79.01 Long term (current) use of anticoagulants; Z88.0 Allergy status to penicillin; Z91.040 Latex allergy status; Z88.1 Allergy status to other antibiotic agents; Z88.8 Allergy status to other drugs, medicaments and biological substances

== ENCOUNTER → 2017-05-22 | Outpatient (REF) ==
[2017-05-22 20:19] LABS: HEMATOCRIT 37.4 % (36.0-47.0); HEMOGLOBIN 12.2 g/dl (12.0-16.0); MEAN CORPUSCULAR HEMOGLOBIN 34.4 pg (27.0-33.0); MEAN CORPUSCULAR HGB CONC 32.6 g/dl (32.0-36.5); MEAN CORPUSCULAR VOLUME 105.4 fl (80.0-96.0); PLATELET COUNT, AUTOMATED 297 10^3/uL (150-450); RED BLOOD COUNT 3.55 10^6/uL (4.00-5.40); RED CELL DISTRIBUTION WIDTH 14.1 % (11.5-14.5); WHITE BLOOD COUNT 9.1 10^3/uL (4.0-10.0)
[2017-05-22 21:12] LABS: ANION GAP 9 MEQ/L (8-16); BLOOD UREA NITROGEN 11 MG/DL (7-18); CALCIUM LEVEL 8.4 MG/DL (8.8-10.2); CARBON DIOXIDE LEVEL 30 MEQ/L (21-32); CHLORIDE LEVEL 100 MEQ/L (98-107); CREATININE FOR GFR 1.46 MG/DL (0.55-1.30); GLOMERULAR FILTRATION RATE 37.5 (>39); GLUCOSE, FASTING 128 MG/DL (70-100); NT-PRO BNP 34254 PG/ML (<125); POTASSIUM SERUM 3.5 MEQ/L (3.5-5.1); SODIUM LEVEL 139 MEQ/L (136-145)
== END ==
DX: R06.02 Shortness of breath (principal)

== ENCOUNTER → 2017-05-23 | Outpatient (REF) | DX: R06.02 Shortness of breath (principal); J44.9 Chronic obstructive pulmonary disease, unspecified ==

== ENCOUNTER → 2017-07-05 | Outpatient (CLI) | payer MEDICARE, BC, OTHER | LOC: M LRY 11:40 | DX: I51.7 Cardiomegaly (principal); K44.9 Diaphragmatic hernia without obstruction or gangrene; R05 Cough | CPT/HCPCS: 71046; G0463 ==

== ENCOUNTER → 2017-09-24 | Outpatient (REF) | payer MEDICARE, OTHER | LOC: M SFHCLERA 10:46 | DX: E03.9 Hypothyroidism, unspecified (principal) | CPT/HCPCS: 84443 ==

== ENCOUNTER 2017-10-07 15:39 | Inpatient (IN) | payer MEDICARE, OTHER ==
[2017-10-07 16:20] LABS: BASO # 0.1 10^3/uL (0.0-0.2); EOS # 0.1 10^3/uL (0.0-0.50); HEMATOCRIT 34.8 % (36.0-47.0); HEMOGLOBIN 11.5 g/dl (12.0-15.5); IMMATURE GRANULOCYTE % 0.3 % (0-3.0); LYMPH # 1.1 10^3/uL (1.5-4.5); LYMPH % 15.6 % (24.0-44.0); MEAN CORPUSCULAR HEMOGLOBIN 34.8 pg (27.0-33.0); MEAN CORPUSCULAR VOLUME 105.5 fl (80.0-96.0); MONO # 0.8 10^3/uL (0.0-0.8); MONO % 11.8 % (0.0-5.0); NEUTROPHILS % 70.3 % (36.0-66.0); PLATELET COUNT, AUTOMATED 185 10^3/uL (150-450); RED CELL DISTRIBUTION WIDTH 12.2 % (11.5-14.5)
[2017-10-07 16:28] LABS: INR 1.05; PROTHROMBIN TIME 13.8 SECONDS (12.1-14.4)
[2017-10-07 16:29] LABS: PARTIAL THROMBOPLASTIN TIME 26.5 SECONDS (25.4-37.6)
[2017-10-07 16:47] LABS: ALBUMIN 3.7 GM/DL (3.2-5.2); ALBUMIN/GLOBULIN RATIO 1.19 (1.00-1.93); ALKALINE PHOSPHATASE 61 U/L (45-117); ALT/SGPT 28 U/L (12-78); ANION GAP 14 MEQ/L (8-16); AST/SGOT 19 U/L (7-37); BILIRUBIN,DIRECT 0.2 MG/DL (0.0-0.2); BILIRUBIN,TOTAL 0.8 MG/DL (0.2-1.0); BLOOD UREA NITROGEN 49 MG/DL (7-18); CALCIUM LEVEL 9.8 MG/DL (8.8-10.2); CARBON DIOXIDE LEVEL 23 MEQ/L (21-32); CHLORIDE LEVEL 100 MEQ/L (98-107); CPK CREATINE PHOSPHOKINASE 158 U/L (26-192); CREATININE FOR GFR 4.28 MG/DL (0.55-1.30); GLOMERULAR FILTRATION RATE 10.8 (>39); GLUCOSE, FASTING 109 MG/DL (70-100); POTASSIUM SERUM 4.4 MEQ/L (3.5-5.1); SODIUM LEVEL 137 MEQ/L (136-145); TOTAL PROTEIN 6.8 GM/DL (6.4-8.2); TROPONIN I 0.07 NG/ML (< 0.10)
[2017-10-07 17:03] LABS: CK-MB VALUE MASS 4.9 NG/ML (<3.6); NT-PRO BNP 32356 PG/ML (<125)
[2017-10-07] MEDS: GABAPENTIN 100 MG CAP PO (18:20)
[2017-10-07] MEDS ORDERED: ONDANSETRON 4MG/2ML VIAL (J2405) IV (20:00)
[2017-10-07] MEDS: SENOKOT S TAB PO (21:00)
[2017-10-07] MEDS: ADVAIR HFA 115/21MCG INHALER INH (22:50)
[2017-10-07 23:08] LABS: FREE THYROXINE INDEX 3.4 % (1.3-4.8); T UPTAKE 37 % (30-39); THYROXINE (T4) 9.1 UG/DL (4.5-12.0)
[2017-10-08 00:51] LABS: CK-MB VALUE MASS 4.2 NG/ML (<3.6); CPK CREATINE PHOSPHOKINASE 140 U/L (26-192)
[2017-10-08] MEDS ORDERED: PILL CRUSHER/CUTTER 1 EACH XX (01:15)
[2017-10-08] MEDS: rOPINIRole 1MG TAB PO ×3 (01:49→20:46)
[2017-10-08] MEDS: APIXABAN 2.5 MG TAB (ELIQUIS) PO ×3 (01:50→20:46)
[2017-10-08] MEDS: ATENOLOL 25 MG TAB PO ×3 (01:50→20:46)
[2017-10-08] MEDS: ERYTHROMYCIN OPHTH OINT OD ×5 (01:51→20:49)
[2017-10-08] MEDS: POLYSPORIN TOPICAL OINTMENT 15GM TOP ×3 (01:51→20:49)
[2017-10-08 05:34] LABS: HEMOGLOBIN 11.1 g/dl (12.0-15.5); MEAN CORPUSCULAR HGB CONC 32.6 g/dl (32.0-36.5); MEAN CORPUSCULAR VOLUME 104.3 fl (80.0-96.0); PLATELET COUNT, AUTOMATED 176 10^3/uL (150-450); RED BLOOD COUNT 3.26 10^6/uL (4.00-5.40); RED CELL DISTRIBUTION WIDTH 12.2 % (11.5-14.5); WHITE BLOOD COUNT 7.9 10^3/uL (4.0-10.0)
[2017-10-08 05:49] LABS: CK-MB VALUE MASS 3.8 NG/ML (<3.6); CPK CREATINE PHOSPHOKINASE 134 U/L (26-192); MB/CK RELATIVE INDEX 2.83 (< OR =4)
[2017-10-08 05:54] LABS: ALBUMIN 3.5 GM/DL (3.2-5.2); ANION GAP 13 MEQ/L (8-16); BLOOD UREA NITROGEN 50 MG/DL (7-18); CALCIUM LEVEL 9.5 MG/DL (8.8-10.2); CARBON DIOXIDE LEVEL 23 MEQ/L (21-32); CHLORIDE LEVEL 102 MEQ/L (98-107); CREATININE FOR GFR 3.99 MG/DL (0.55-1.30); GLOMERULAR FILTRATION RATE 11.8 (>39); GLUCOSE, FASTING 95 MG/DL (70-100); PHOSPHORUS LEVEL 4.5 MG/DL (2.5-4.9); POTASSIUM SERUM 4.3 MEQ/L (3.5-5.1); SODIUM LEVEL 138 MEQ/L (136-145)
[2017-10-08] MEDS: valACYclovir HCL 500 MG TAB PO (08:19)
[2017-10-08] MEDS: VENLAFAXINE **XR** 75MG CAPSULE PO (08:20)
[2017-10-08] MEDS: FAMOTIDINE 20 MG TAB PO (08:20)
[2017-10-08] MEDS: ATORVASTATIN 20 MG TAB PO (08:20)
[2017-10-08] MEDS: SENOKOT S TAB PO ×2 (08:22→20:48)
[2017-10-08] MEDS: ADVAIR HFA 115/21MCG INHALER INH ×2 (08:28→20:23)
[2017-10-08] MEDS: TIOTROPIUM INHALER/CAPSULE (SPIRIVA) INH (08:28)
[2017-10-08] MEDS: HEPARIN 1,000 UNITS/ML 10ML VIAL (FOR RADIOLOGY& DIALYSIS ONLY) IV (15:13)
[2017-10-08] MEDS: HEPARIN 1,000 UNITS/ML 10ML VIAL (FOR RADIOLOGY& DIALYSIS ONLY) XX (15:13)
[2017-10-09] MEDS: ACETAMINOPHEN TAB 650MG DOSE (2X325MG) PO ×2 (05:37→21:04)
[2017-10-09 06:30] LABS: HEMATOCRIT 35.3 % (36.0-47.0); HEMOGLOBIN 11.4 g/dl (12.0-15.5); MEAN CORPUSCULAR HEMOGLOBIN 33.9 pg (27.0-33.0); MEAN CORPUSCULAR HGB CONC 32.3 g/dl (32.0-36.5); MEAN CORPUSCULAR VOLUME 105.1 fl (80.0-96.0); PLATELET COUNT, AUTOMATED 163 10^3/uL (150-450); RED BLOOD COUNT 3.36 10^6/uL (4.00-5.40); RED CELL DISTRIBUTION WIDTH 12.2 % (11.5-14.5); WHITE BLOOD COUNT 5.1 10^3/uL (4.0-10.0)
[2017-10-09 06:48] LABS: ALBUMIN 3.2 GM/DL (3.2-5.2); ANION GAP 10 MEQ/L (8-16); BLOOD UREA NITROGEN 29 MG/DL (7-18); CALCIUM LEVEL 9.1 MG/DL (8.8-10.2); CARBON DIOXIDE LEVEL 28 MEQ/L (21-32); CHLORIDE LEVEL 98 MEQ/L (98-107); CREATININE FOR GFR 3.18 MG/DL (0.55-1.30); GLOMERULAR FILTRATION RATE 15.3 (>39); GLUCOSE, FASTING 104 MG/DL (70-100); MAGNESIUM LEVEL 2.2 MG/DL (1.8-2.4); PHOSPHORUS LEVEL 3.6 MG/DL (2.5-4.9); POTASSIUM SERUM 3.8 MEQ/L (3.5-5.1); SODIUM LEVEL 136 MEQ/L (136-145)
[2017-10-09] MEDS: ADVAIR HFA 115/21MCG INHALER INH ×2 (07:22→20:27)
[2017-10-09] MEDS: TIOTROPIUM INHALER/CAPSULE (SPIRIVA) INH (07:22)
[2017-10-09] MEDS: SENOKOT S TAB PO ×3 (09:00→21:04)
[2017-10-09] MEDS: APIXABAN 2.5 MG TAB (ELIQUIS) PO ×2 (09:04→21:04)
[2017-10-09] MEDS: FAMOTIDINE 20 MG TAB PO (09:04)
[2017-10-09] MEDS: ATORVASTATIN 20 MG TAB PO (09:04)
[2017-10-09] MEDS: valACYclovir HCL 500 MG TAB PO (09:04)
[2017-10-09] MEDS: rOPINIRole 1MG TAB PO ×2 (09:04→21:04)
[2017-10-09] MEDS: VENLAFAXINE **XR** 75MG CAPSULE PO (09:04)
[2017-10-09] MEDS: ATENOLOL 25 MG TAB PO ×2 (09:04→22:10)
[2017-10-09] MEDS: POLYSPORIN TOPICAL OINTMENT 15GM TOP (09:05)
[2017-10-09] MEDS: ERYTHROMYCIN OPHTH OINT OD ×4 (09:05→21:12)
[2017-10-09] MEDS: HEPARIN 1,000 UNITS/ML 10ML VIAL (FOR RADIOLOGY& DIALYSIS ONLY) IV (12:00)
[2017-10-09] MEDS: LIDOCAINE 1% SDV 5 ML VIAL SQ (12:00)
[2017-10-09 21:38] LABS: BEDSIDE GLUCOSE 167 MG/DL (83-110)
[2017-10-10 06:14] LABS: HEMOGLOBIN 11.5 g/dl (12.0-15.5); MEAN CORPUSCULAR HEMOGLOBIN 34.7 pg (27.0-33.0); MEAN CORPUSCULAR HGB CONC 32.9 g/dl (32.0-36.5); MEAN CORPUSCULAR VOLUME 105.7 fl (80.0-96.0); PLATELET COUNT, AUTOMATED 179 10^3/uL (150-450); RED BLOOD COUNT 3.31 10^6/uL (4.00-5.40); RED CELL DISTRIBUTION WIDTH 12.2 % (11.5-14.5); WHITE BLOOD COUNT 4.7 10^3/uL (4.0-10.0)
[2017-10-10 06:34] LABS: ALBUMIN 3.1 GM/DL (3.2-5.2); ANION GAP 9 MEQ/L (8-16); BLOOD UREA NITROGEN 20 MG/DL (7-18); CALCIUM LEVEL 9.1 MG/DL (8.8-10.2); CARBON DIOXIDE LEVEL 30 MEQ/L (21-32); CHLORIDE LEVEL 98 MEQ/L (98-107); CREATININE FOR GFR 3.09 MG/DL (0.55-1.30); GLOMERULAR FILTRATION RATE 15.8 (>39); GLUCOSE, FASTING 91 MG/DL (70-100); MAGNESIUM LEVEL 2.1 MG/DL (1.8-2.4); PHOSPHORUS LEVEL 3.5 MG/DL (2.5-4.9); POTASSIUM SERUM 3.6 MEQ/L (3.5-5.1); SODIUM LEVEL 137 MEQ/L (136-145)
[2017-10-10] MEDS: TIOTROPIUM INHALER/CAPSULE (SPIRIVA) INH (07:22)
[2017-10-10] MEDS: ADVAIR HFA 115/21MCG INHALER INH ×2 (07:23→21:16)
[2017-10-10] MEDS: SENOKOT S TAB PO ×2 (08:02→20:45)
[2017-10-10] MEDS: ATENOLOL 25 MG TAB PO ×2 (08:30→21:32)
[2017-10-10] MEDS: ERYTHROMYCIN OPHTH OINT OD (08:52)
[2017-10-10] MEDS: valACYclovir HCL 500 MG TAB PO (08:52)
[2017-10-10] MEDS: rOPINIRole 1MG TAB PO ×2 (08:52→20:47)
[2017-10-10] MEDS: APIXABAN 2.5 MG TAB (ELIQUIS) PO ×2 (08:52→20:46)
[2017-10-10] MEDS: FAMOTIDINE 20 MG TAB PO (08:52)
[2017-10-10] MEDS: VENLAFAXINE **XR** 75MG CAPSULE PO (08:52)
[2017-10-10] MEDS: ATORVASTATIN 20 MG TAB PO (08:52)
[2017-10-10] MEDS: ERYTHROMYCIN OPHTH OINT OS ×3 (13:04→20:49)
[2017-10-10] MEDS: ACETAMINOPHEN TAB 650MG DOSE (2X325MG) PO ×2 (13:50→20:48)
[2017-10-11 06:14] LABS: HEMOGLOBIN 10.7 g/dl (12.0-15.5); MEAN CORPUSCULAR HEMOGLOBIN 34.3 pg (27.0-33.0); MEAN CORPUSCULAR HGB CONC 32.4 g/dl (32.0-36.5); MEAN CORPUSCULAR VOLUME 105.8 fl (80.0-96.0); PLATELET COUNT, AUTOMATED 197 10^3/uL (150-450); RED BLOOD COUNT 3.12 10^6/uL (4.00-5.40); RED CELL DISTRIBUTION WIDTH 12.3 % (11.5-14.5); WHITE BLOOD COUNT 4.6 10^3/uL (4.0-10.0)
[2017-10-11] MEDS: rOPINIRole 1MG TAB PO ×2 (06:38→20:11)
[2017-10-11] MEDS: SENOKOT S TAB PO ×2 (06:38→20:12)
[2017-10-11] MEDS: ATORVASTATIN 20 MG TAB PO (06:38)
[2017-10-11 06:39] LABS: ALBUMIN 3.1 GM/DL (3.2-5.2); ANION GAP 11 MEQ/L (8-16); CALCIUM LEVEL 8.9 MG/DL (8.8-10.2); CARBON DIOXIDE LEVEL 28 MEQ/L (21-32); CHLORIDE LEVEL 94 MEQ/L (98-107); CREATININE FOR GFR 4.51 MG/DL (0.55-1.30); GLOMERULAR FILTRATION RATE 10.2 (>39); GLUCOSE, FASTING 93 MG/DL (70-100); MAGNESIUM LEVEL 2.1 MG/DL (1.8-2.4); SODIUM LEVEL 133 MEQ/L (136-145)
[2017-10-11] MEDS: APIXABAN 2.5 MG TAB (ELIQUIS) PO ×2 (06:39→20:15)
[2017-10-11] MEDS: VENLAFAXINE **XR** 75MG CAPSULE PO (06:39)
[2017-10-11] MEDS: valACYclovir HCL 500 MG TAB PO (06:39)
[2017-10-11] MEDS: FAMOTIDINE 20 MG TAB PO (06:41)
[2017-10-11] MEDS: ERYTHROMYCIN OPHTH OINT OS ×4 (06:42→20:13)
[2017-10-11 06:47] LABS: BLOOD UREA NITROGEN 36 MG/DL (7-18)
[2017-10-11] MEDS: ACETAMINOPHEN TAB 650MG DOSE (2X325MG) PO (06:49)
[2017-10-11 06:50] LABS: PHOSPHORUS LEVEL 4.3 MG/DL (2.5-4.9)
[2017-10-11] MEDS: ATENOLOL 25 MG TAB PO ×2 (07:59→20:11)
[2017-10-11] MEDS: TIOTROPIUM INHALER/CAPSULE (SPIRIVA) INH (08:09)
[2017-10-11] MEDS: ADVAIR HFA 115/21MCG INHALER INH ×2 (08:10→20:25)
[2017-10-11] MEDS: HEPARIN 1,000 UNITS/ML 10ML VIAL (FOR RADIOLOGY& DIALYSIS ONLY) IV (13:21)
[2017-10-11] MEDS: LIDOCAINE 1% SDV 5 ML VIAL SQ (13:21)
[2017-10-12 06:02] LABS: HEMATOCRIT 34.6 % (36.0-47.0); HEMOGLOBIN 11.2 g/dl (12.0-15.5); MEAN CORPUSCULAR HEMOGLOBIN 34.5 pg (27.0-33.0); MEAN CORPUSCULAR HGB CONC 32.4 g/dl (32.0-36.5); MEAN CORPUSCULAR VOLUME 106.5 fl (80.0-96.0); PLATELET COUNT, AUTOMATED 216 10^3/uL (150-450); RED BLOOD COUNT 3.25 10^6/uL (4.00-5.40); RED CELL DISTRIBUTION WIDTH 12.4 % (11.5-14.5); WHITE BLOOD COUNT 4.7 10^3/uL (4.0-10.0)
[2017-10-12 06:22] LABS: ALBUMIN 3.2 GM/DL (3.2-5.2); ANION GAP 10 MEQ/L (8-16); BLOOD UREA NITROGEN 22 MG/DL (7-18); CALCIUM LEVEL 9.3 MG/DL (8.8-10.2); CARBON DIOXIDE LEVEL 29 MEQ/L (21-32); CHLORIDE LEVEL 99 MEQ/L (98-107); CREATININE FOR GFR 3.68 MG/DL (0.55-1.30); GLOMERULAR FILTRATION RATE 12.9 (>39); GLUCOSE, FASTING 106 MG/DL (70-100); MAGNESIUM LEVEL 1.9 MG/DL (1.8-2.4); PHOSPHORUS LEVEL 3.1 MG/DL (2.5-4.9); POTASSIUM SERUM 3.8 MEQ/L (3.5-5.1); SODIUM LEVEL 138 MEQ/L (136-145)
[2017-10-12] MEDS: ADVAIR HFA 115/21MCG INHALER INH ×2 (07:55→21:02)
[2017-10-12] MEDS: TIOTROPIUM INHALER/CAPSULE (SPIRIVA) INH (07:55)
[2017-10-12] MEDS: valACYclovir HCL 500 MG TAB PO (09:26)
[2017-10-12] MEDS: FAMOTIDINE 20 MG TAB PO (09:26)
[2017-10-12] MEDS: APIXABAN 2.5 MG TAB (ELIQUIS) PO ×2 (09:26→20:42)
[2017-10-12] MEDS: VENLAFAXINE **XR** 75MG CAPSULE PO (09:26)
[2017-10-12] MEDS: ATORVASTATIN 20 MG TAB PO (09:26)
[2017-10-12] MEDS: rOPINIRole 1MG TAB PO ×2 (09:27→20:42)
[2017-10-12] MEDS: ERYTHROMYCIN OPHTH OINT OS ×4 (09:27→20:43)
[2017-10-12] MEDS: SENOKOT S TAB PO ×2 (09:27→20:42)
[2017-10-12] MEDS: ATENOLOL 25 MG TAB PO ×2 (09:31→20:43)
[2017-10-13] MEDS: ACETAMINOPHEN TAB 650MG DOSE (2X325MG) PO (00:02)
[2017-10-13 06:42] LABS: HEMATOCRIT 33.6 % (36.0-47.0); MEAN CORPUSCULAR HEMOGLOBIN 34.5 pg (27.0-33.0); MEAN CORPUSCULAR HGB CONC 32.7 g/dl (32.0-36.5); MEAN CORPUSCULAR VOLUME 105.3 fl (80.0-96.0); PLATELET COUNT, AUTOMATED 228 10^3/uL (150-450); RED BLOOD COUNT 3.19 10^6/uL (4.00-5.40); RED CELL DISTRIBUTION WIDTH 12.3 % (11.5-14.5); WHITE BLOOD COUNT 5.3 10^3/uL (4.0-10.0)
[2017-10-13 06:55] LABS: ALBUMIN 3.2 GM/DL (3.2-5.2); ANION GAP 9 MEQ/L (8-16); BLOOD UREA NITROGEN 39 MG/DL (7-18); CALCIUM LEVEL 9.2 MG/DL (8.8-10.2); CARBON DIOXIDE LEVEL 28 MEQ/L (21-32); CHLORIDE LEVEL 99 MEQ/L (98-107); CREATININE FOR GFR 4.18 MG/DL (0.55-1.30); GLOMERULAR FILTRATION RATE 11.1 (>39); GLUCOSE, FASTING 94 MG/DL (70-100); MAGNESIUM LEVEL 1.9 MG/DL (1.8-2.4); POTASSIUM SERUM 3.9 MEQ/L (3.5-5.1); SODIUM LEVEL 136 MEQ/L (136-145)
[2017-10-13] MEDS: ADVAIR HFA 115/21MCG INHALER INH (07:19)
[2017-10-13] MEDS: TIOTROPIUM INHALER/CAPSULE (SPIRIVA) INH (07:19)
[2017-10-13] MEDS: rOPINIRole 1MG TAB PO (09:02)
[2017-10-13] MEDS: FAMOTIDINE 20 MG TAB PO (09:02)
[2017-10-13] MEDS: valACYclovir HCL 500 MG TAB PO (09:03)
[2017-10-13] MEDS: ATORVASTATIN 20 MG TAB PO (09:03)
[2017-10-13] MEDS: VENLAFAXINE **XR** 75MG CAPSULE PO (09:03)
[2017-10-13] MEDS: APIXABAN 2.5 MG TAB (ELIQUIS) PO (09:03)
[2017-10-13] MEDS: ATENOLOL 25 MG TAB PO (09:03)
[2017-10-13] MEDS: SENOKOT S TAB PO (09:03)
[2017-10-13] MEDS: ERYTHROMYCIN OPHTH OINT OS (09:03)
== END 2017-10-13 11:56 | disposition home health service (06) | DRG 308 ==
LOC: M ICU 10-08 00:46 → M ED 15:39 → M MSPAV 10-08 13:39 → M ED INP 19:59
PROC: 5A1D70Z Performance of Urinary Filtration, Intermittent, Less than 6 Hours Per Day (ICD-10-PCS; principal; 2017-10-11)
DX: I48.91 Unspecified atrial fibrillation (principal); N18.6 End stage renal disease; B02.30 Zoster ocular disease, unspecified; I12.0 Hypertensive chronic kidney disease with stage 5 chronic kidney disease or end stage renal disease; E87.1 Hypo-osmolality and hyponatremia; J44.9 Chronic obstructive pulmonary disease, unspecified; M79.7 Fibromyalgia; E03.9 Hypothyroidism, unspecified; Z79.899 Other long term (current) drug therapy; Z88.0 Allergy status to penicillin; Z88.1 Allergy status to other antibiotic agents; Z88.8 Allergy status to other drugs, medicaments and biological substances; Z91.013 Allergy to seafood; Z91.040 Latex allergy status; F32.9 Major depressive disorder, single episode, unspecified; Z87.891 Personal history of nicotine dependence; G25.81 Restless legs syndrome; I27.20 Pulmonary hypertension, unspecified; D63.1 Anemia in chronic kidney disease

== ENCOUNTER 2017-11-08 12:43 | Inpatient (IN) | payer MEDICARE, BC, OTHER ==
[2017-11-08 13:32] LABS: VENOUS BASE EXCESS 2.9 (-2.0-2.0); VENOUS HCO3 29.2 MEQ/L (23.0-27.0); VENOUS PARTIAL PRESSURE CO2 51.6 mmHg (38.0-50.0); VENOUS PARTIAL PRESSURE O2 30.7 mmHg (30.0-50.0); VENOUS TOTAL CO2 30.7 MEQ/L (24.0-28.0)
[2017-11-08 13:33] LABS: BASO # 0.1 10^3/uL (0.0-0.2); BASO % 0.3 % (0.0-1.0); EOS % 0.1 % (0.0-3.0); HEMATOCRIT 35.3 % (36.0-47.0); HEMOGLOBIN 11.7 g/dl (12.0-15.5); IMMATURE GRANULOCYTE % 0.7 % (0-3.0); LYMPH # 0.8 10^3/uL (1.5-4.5); LYMPH % 5.1 % (24.0-44.0); MEAN CORPUSCULAR HEMOGLOBIN 35.5 pg (27.0-33.0); MEAN CORPUSCULAR HGB CONC 33.1 g/dl (32.0-36.5); MONO % 13.7 % (0.0-5.0); NEUTROPHILS # 12.5 10^3/uL (1.8-7.7); NEUTROPHILS % 80.1 % (36.0-66.0); PLATELET COUNT, AUTOMATED 244 10^3/uL (150-450); RED CELL DISTRIBUTION WIDTH 14.1 % (11.5-14.5); WHITE BLOOD COUNT 15.6 10^3/uL (4.0-10.0)
[2017-11-08 13:57] LABS: ALBUMIN 3.5 GM/DL (3.2-5.2); ALBUMIN/GLOBULIN RATIO 0.92 (1.00-1.93); ALKALINE PHOSPHATASE 50 U/L (45-117); ALT/SGPT 29 U/L (12-78); ANION GAP 10 MEQ/L (8-16); AST/SGOT 19 U/L (7-37); BILIRUBIN,DIRECT 0.6 MG/DL (0.0-0.2); BILIRUBIN,TOTAL 1.9 MG/DL (0.2-1.0); BLOOD UREA NITROGEN 43 MG/DL (7-18); CALCIUM LEVEL 9.8 MG/DL (8.8-10.2); CARBON DIOXIDE LEVEL 28 MEQ/L (21-32); CHLORIDE LEVEL 102 MEQ/L (98-107); CPK CREATINE PHOSPHOKINASE 116 U/L (26-192); CREATININE FOR GFR 3.15 MG/DL (0.55-1.30); GLOMERULAR FILTRATION RATE 15.4 (>39); GLUCOSE, FASTING 80 MG/DL (70-100); POTASSIUM SERUM 3.8 MEQ/L (3.5-5.1); SODIUM LEVEL 140 MEQ/L (136-145); TOTAL PROTEIN 7.3 GM/DL (6.4-8.2); TROPONIN I 0.11 NG/ML (< 0.10)
[2017-11-08] MEDS: IPRATROPIUM 0.5MG/ALBUTEROL 2.5MG INH SOL UD 3ML (DUONEB)(J7620) NEB ×2 (13:59→20:31)
[2017-11-08 14:10] LABS: CK-MB VALUE MASS 2.5 NG/ML (<3.6); MB/CK RELATIVE INDEX 2.15 (< OR =4); NT-PRO BNP 61488 PG/ML (<125)
[2017-11-08 14:12] LABS: MONO # 2.1 10^3/uL (0.0-0.8)
[2017-11-08 14:14] LABS: POSITIVE DIFF POS FLAG
[2017-11-08] MEDS: diltiaZEM 125 MG in NS 100 ML IV (14:38)
[2017-11-08] MEDS: LevoFLOXacin IV 750 MG in APPROPRIATE DILUENT 1 EA IV (14:59)
[2017-11-08] MEDS: rOPINIRole 2MG TAB PO (16:23)
[2017-11-08] MEDS: ADVAIR HFA 115/21MCG INHALER INH (20:33)
[2017-11-08] MEDS: TRIFLURIDINE 1% OPHTH SOLN 7.5 ML OD (20:51)
[2017-11-08] MEDS: AMITRIPTYLINE 25 MG TAB PO (20:51)
[2017-11-08] MEDS: FAMOTIDINE 20 MG TAB PO (20:51)
[2017-11-08] MEDS: ATENOLOL 50 MG TAB PO (20:51)
[2017-11-08 21:50] LABS: TROPONIN I 0.11 NG/ML (< 0.10)
[2017-11-09] MEDS ORDERED: diltiaZEM 125 MG in NS 100 ML IV
[2017-11-09] MEDS: diltiaZEM 125 MG in NS 100 ML IV (03:44)
[2017-11-09 05:45] LABS: BASO % 0.2 % (0.0-1.0); EOS % 0.1 % (0.0-3.0); HEMATOCRIT 31.5 % (36.0-47.0); HEMOGLOBIN 10.1 g/dl (12.0-15.5); IMMATURE GRANULOCYTE % 0.7 % (0-3.0); LYMPH # 0.7 10^3/uL (1.5-4.5); LYMPH % 5.7 % (24.0-44.0); MEAN CORPUSCULAR HEMOGLOBIN 34.8 pg (27.0-33.0); MEAN CORPUSCULAR HGB CONC 32.1 g/dl (32.0-36.5); MEAN CORPUSCULAR VOLUME 108.6 fl (80.0-96.0); MONO # 1.6 10^3/uL (0.0-0.8); MONO % 12.2 % (0.0-5.0); NEUTROPHILS # 10.3 10^3/uL (1.8-7.7); NEUTROPHILS % 81.1 % (36.0-66.0); PLATELET COUNT, AUTOMATED 207 10^3/uL (150-450); WHITE BLOOD COUNT 12.7 10^3/uL (4.0-10.0)
[2017-11-09 06:06] LABS: ALBUMIN 2.6 GM/DL (3.2-5.2); ALBUMIN/GLOBULIN RATIO 0.74 (1.00-1.93); ALKALINE PHOSPHATASE 44 U/L (45-117); ALT/SGPT 22 U/L (12-78); ANION GAP 11 MEQ/L (8-16); AST/SGOT 14 U/L (7-37); BILIRUBIN,TOTAL 1.4 MG/DL (0.2-1.0); BLOOD UREA NITROGEN 53 MG/DL (7-18); CARBON DIOXIDE LEVEL 26 MEQ/L (21-32); CHLORIDE LEVEL 103 MEQ/L (98-107); CREATININE FOR GFR 3.46 MG/DL (0.55-1.30); GLOMERULAR FILTRATION RATE 13.9 (>39); GLUCOSE, FASTING 91 MG/DL (70-100); MAGNESIUM LEVEL 2.2 MG/DL (1.8-2.4); POTASSIUM SERUM 4.3 MEQ/L (3.5-5.1); SODIUM LEVEL 140 MEQ/L (136-145); TOTAL PROTEIN 6.1 GM/DL (6.4-8.2); TROPONIN I 0.08 NG/ML (< 0.10)
[2017-11-09] MEDS: LEVOTHYROXINE 50MCG TABLET (0.05MG) PO (06:06)
[2017-11-09] MEDS: TRIFLURIDINE 1% OPHTH SOLN 7.5 ML OD ×5 (06:06→20:07)
[2017-11-09] MEDS: ADVAIR HFA 115/21MCG INHALER INH ×2 (07:18→20:00)
[2017-11-09] MEDS: IPRATROPIUM 0.5MG/ALBUTEROL 2.5MG INH SOL UD 3ML (DUONEB)(J7620) NEB ×4 (07:18→19:59)
[2017-11-09] MEDS: TIOTROPIUM INHALER/CAPSULE (SPIRIVA) INH (07:18)
[2017-11-09] MEDS: APIXABAN 5 MG TAB (ELIQUIS) PO (08:25)
[2017-11-09] MEDS: FAMOTIDINE 20 MG TAB PO ×2 (08:25→20:02)
[2017-11-09] MEDS: ATENOLOL 50 MG TAB PO ×2 (08:26→20:05)
[2017-11-09] MEDS: (RENVELA) SEVELAMER **CARBONate** 800 MG TAB PO ×3 (08:27→17:34)
[2017-11-09] MEDS: VENLAFAXINE **XR** 75MG CAPSULE PO (10:28)
[2017-11-09] MEDS ORDERED: MEROPENEM INJ 1 GM in APPROPRIATE DILUENT 1 EA IV (11:30)
[2017-11-09] MEDS: AZITHROMYCIN 250 MG TAB PO (12:12)
[2017-11-09] MEDS: ACETAMINOPHEN TAB 650MG DOSE (2X325MG) PO (12:13)
[2017-11-09] MEDS: LACTOBACILLUS ACIDOPHILUS CAP (BACID) PO ×2 (12:14→17:34)
[2017-11-09] MEDS: MEROPENEM INJ 500 MG in APPROPRIATE DILUENT 1 EA IV (16:18)
[2017-11-09] MEDS: AMITRIPTYLINE 25 MG TAB PO (20:02)
[2017-11-09] MEDS: ONDANSETRON 4MG/2ML VIAL (J2405) IV (21:00)
[2017-11-10] MEDS: ACETAMINOPHEN TAB 650MG DOSE (2X325MG) PO (01:52)
[2017-11-10] MEDS: METOCLOPRAMIDE INJ 10MG/2ML VIAL (J2765) IV (01:56)
[2017-11-10] MEDS: TRIFLURIDINE 1% OPHTH SOLN 7.5 ML OD ×5 (05:09→23:39)
[2017-11-10] MEDS: ATENOLOL 50 MG TAB PO ×2 (05:10→21:00)
[2017-11-10] MEDS: LACTOBACILLUS ACIDOPHILUS CAP (BACID) PO ×3 (05:24→17:33)
[2017-11-10] MEDS: APIXABAN 5 MG TAB (ELIQUIS) PO (05:24)
[2017-11-10] MEDS: (RENVELA) SEVELAMER **CARBONate** 800 MG TAB PO ×2 (05:24→17:33)
[2017-11-10] MEDS: LEVOTHYROXINE 50MCG TABLET (0.05MG) PO (05:24)
[2017-11-10] MEDS: VENLAFAXINE **XR** 75MG CAPSULE PO (05:24)
[2017-11-10] MEDS: FAMOTIDINE 20 MG TAB PO ×2 (05:25→21:11)
[2017-11-10] MEDS: AZITHROMYCIN 250 MG TAB PO (05:36)
[2017-11-10 06:49] LABS: BASO % 0.2 % (0.0-1.0); EOS % 0.2 % (0.0-3.0); HEMATOCRIT 34.6 % (36.0-47.0); HEMOGLOBIN 11.4 g/dl (12.0-15.5); IMMATURE GRANULOCYTE % 0.6 % (0-3.0); LYMPH # 0.8 10^3/uL (1.5-4.5); LYMPH % 6.7 % (24.0-44.0); MEAN CORPUSCULAR HGB CONC 32.9 g/dl (32.0-36.5); MEAN CORPUSCULAR VOLUME 106.1 fl (80.0-96.0); MONO # 1.2 10^3/uL (0.0-0.8); MONO % 10.3 % (0.0-5.0); NEUTROPHILS # 9.9 10^3/uL (1.8-7.7); PLATELET COUNT, AUTOMATED 254 10^3/uL (150-450); RED BLOOD COUNT 3.26 10^6/uL (4.00-5.40); RED CELL DISTRIBUTION WIDTH 13.8 % (11.5-14.5); WHITE BLOOD COUNT 12.1 10^3/uL (4.0-10.0)
[2017-11-10 07:08] LABS: ALBUMIN 2.9 GM/DL (3.2-5.2); ALBUMIN/GLOBULIN RATIO 0.66 (1.00-1.93); ALKALINE PHOSPHATASE 62 U/L (45-117); ALT/SGPT 52 U/L (12-78); ANION GAP 15 MEQ/L (8-16); AST/SGOT 64 U/L (7-37); BILIRUBIN,TOTAL 1.3 MG/DL (0.2-1.0); BLOOD UREA NITROGEN 72 MG/DL (7-18); CALCIUM LEVEL 9.7 MG/DL (8.8-10.2); CARBON DIOXIDE LEVEL 22 MEQ/L (21-32); CHLORIDE LEVEL 100 MEQ/L (98-107); GLOMERULAR FILTRATION RATE 9.3 (>39); GLUCOSE, FASTING 104 MG/DL (70-100); MAGNESIUM LEVEL 2.3 MG/DL (1.8-2.4); POTASSIUM SERUM 4.8 MEQ/L (3.5-5.1); SODIUM LEVEL 137 MEQ/L (136-145); TOTAL PROTEIN 7.3 GM/DL (6.4-8.2)
[2017-11-10] MEDS: IPRATROPIUM 0.5MG/ALBUTEROL 2.5MG INH SOL UD 3ML (DUONEB)(J7620) NEB ×4 (07:48→20:00)
[2017-11-10] MEDS: TIOTROPIUM INHALER/CAPSULE (SPIRIVA) INH (07:52)
[2017-11-10] MEDS: ADVAIR HFA 115/21MCG INHALER INH ×2 (07:53→20:54)
[2017-11-10] MEDS: MEROPENEM INJ 500 MG in APPROPRIATE DILUENT 1 EA IV (15:42)
[2017-11-10] MEDS: LIDOCAINE 1% SDV 5 ML VIAL SQ (15:42)
[2017-11-10] MEDS: HEPARIN 1,000 UNITS/ML 10ML VIAL (FOR RADIOLOGY& DIALYSIS ONLY) IV (15:43)
[2017-11-10] MEDS ORDERED: LevoFLOXacin 500 MG TABLET PO (18:00)
[2017-11-10] MEDS: AMITRIPTYLINE 25 MG TAB PO (21:11)
[2017-11-11] MEDS: TRIFLURIDINE 1% OPHTH SOLN 7.5 ML OD ×5 (05:32→21:17)
[2017-11-11] MEDS: LEVOTHYROXINE 50MCG TABLET (0.05MG) PO (05:32)
[2017-11-11 05:59] LABS: BASO % 0.1 % (0.0-1.0); EOS # 0.2 10^3/uL (0.0-0.50); EOS % 2.4 % (0.0-3.0); HEMATOCRIT 31.8 % (36.0-47.0); HEMOGLOBIN 10.5 g/dl (12.0-15.5); IMMATURE GRANULOCYTE % 0.4 % (0-3.0); LYMPH # 0.7 10^3/uL (1.5-4.5); LYMPH % 8.6 % (24.0-44.0); MEAN CORPUSCULAR HEMOGLOBIN 34.7 pg (27.0-33.0); MONO # 1.1 10^3/uL (0.0-0.8); MONO % 13.5 % (0.0-5.0); NEUTROPHILS # 6.4 10^3/uL (1.8-7.7); PLATELET COUNT, AUTOMATED 254 10^3/uL (150-450); RED BLOOD COUNT 3.03 10^6/uL (4.00-5.40); RED CELL DISTRIBUTION WIDTH 13.8 % (11.5-14.5); WHITE BLOOD COUNT 8.5 10^3/uL (4.0-10.0)
[2017-11-11 06:16] LABS: ALBUMIN 2.5 GM/DL (3.2-5.2); ALBUMIN/GLOBULIN RATIO 0.68 (1.00-1.93); ALKALINE PHOSPHATASE 52 U/L (45-117); ALT/SGPT 45 U/L (12-78); ANION GAP 10 MEQ/L (8-16); AST/SGOT 40 U/L (7-37); BLOOD UREA NITROGEN 36 MG/DL (7-18); CALCIUM LEVEL 9.2 MG/DL (8.8-10.2); CARBON DIOXIDE LEVEL 28 MEQ/L (21-32); CHLORIDE LEVEL 105 MEQ/L (98-107); CREATININE FOR GFR 3.35 MG/DL (0.55-1.30); GLOMERULAR FILTRATION RATE 14.4 (>39); GLUCOSE, FASTING 80 MG/DL (70-100); MAGNESIUM LEVEL 2.4 MG/DL (1.8-2.4); POTASSIUM SERUM 3.8 MEQ/L (3.5-5.1); SODIUM LEVEL 143 MEQ/L (136-145); TOTAL PROTEIN 6.2 GM/DL (6.4-8.2)
[2017-11-11] MEDS: AZITHROMYCIN 250 MG TAB PO (07:59)
[2017-11-11] MEDS: APIXABAN 5 MG TAB (ELIQUIS) PO (08:00)
[2017-11-11] MEDS: LACTOBACILLUS ACIDOPHILUS CAP (BACID) PO ×3 (08:00→17:25)
[2017-11-11] MEDS: VENLAFAXINE **XR** 75MG CAPSULE PO (08:00)
[2017-11-11] MEDS: TIOTROPIUM INHALER/CAPSULE (SPIRIVA) INH (08:00)
[2017-11-11] MEDS: ATENOLOL 50 MG TAB PO ×2 (08:00→21:00)
[2017-11-11] MEDS: IPRATROPIUM 0.5MG/ALBUTEROL 2.5MG INH SOL UD 3ML (DUONEB)(J7620) NEB ×4 (08:00→20:00)
[2017-11-11] MEDS: FAMOTIDINE 20 MG TAB PO ×2 (08:00→21:17)
[2017-11-11] MEDS: (RENVELA) SEVELAMER **CARBONate** 800 MG TAB PO ×2 (08:01→17:25)
[2017-11-11] MEDS: ADVAIR HFA 115/21MCG INHALER INH ×2 (08:05→20:08)
[2017-11-11] MEDS: MEROPENEM INJ 500 MG in APPROPRIATE DILUENT 1 EA IV (15:40)
[2017-11-11] MEDS: PILL CRUSHER/CUTTER 1 EACH XX ×2 (21:17)
[2017-11-11] MEDS: AMITRIPTYLINE 25 MG TAB PO (21:17)
[2017-11-12 06:14] LABS: BASO % 0.4 % (0.0-1.0); EOS # 0.5 10^3/uL (0.0-0.50); EOS % 4.6 % (0.0-3.0); HEMOGLOBIN 10.6 g/dl (12.0-15.5); IMMATURE GRANULOCYTE % 0.4 % (0-3.0); LYMPH # 0.8 10^3/uL (1.5-4.5); MEAN CORPUSCULAR HEMOGLOBIN 35.1 pg (27.0-33.0); MEAN CORPUSCULAR HGB CONC 33.1 g/dl (32.0-36.5); MONO # 1.3 10^3/uL (0.0-0.8); MONO % 13.6 % (0.0-5.0); NEUTROPHILS # 7.1 10^3/uL (1.8-7.7); PLATELET COUNT, AUTOMATED 258 10^3/uL (150-450); RED BLOOD COUNT 3.02 10^6/uL (4.00-5.40); RED CELL DISTRIBUTION WIDTH 13.9 % (11.5-14.5); WHITE BLOOD COUNT 9.7 10^3/uL (4.0-10.0)
[2017-11-12] MEDS: ATENOLOL 50 MG TAB PO ×2 (06:25→20:47)
[2017-11-12] MEDS: LACTOBACILLUS ACIDOPHILUS CAP (BACID) PO ×3 (06:26→18:34)
[2017-11-12] MEDS: VENLAFAXINE **XR** 75MG CAPSULE PO (06:26)
[2017-11-12] MEDS: (RENVELA) SEVELAMER **CARBONate** 800 MG TAB PO ×2 (06:27→18:34)
[2017-11-12] MEDS: AZITHROMYCIN 250 MG TAB PO (06:27)
[2017-11-12] MEDS: LEVOTHYROXINE 50MCG TABLET (0.05MG) PO (06:27)
[2017-11-12] MEDS: FAMOTIDINE 20 MG TAB PO ×2 (06:27→20:47)
[2017-11-12] MEDS: APIXABAN 5 MG TAB (ELIQUIS) PO (06:27)
[2017-11-12] MEDS: TRIFLURIDINE 1% OPHTH SOLN 7.5 ML OD ×5 (06:28→20:48)
[2017-11-12 06:41] LABS: ALBUMIN 2.4 GM/DL (3.2-5.2); ALBUMIN/GLOBULIN RATIO 0.67 (1.00-1.93); ALKALINE PHOSPHATASE 53 U/L (45-117); ALT/SGPT 35 U/L (12-78); ANION GAP 10 MEQ/L (8-16); AST/SGOT 23 U/L (7-37); BILIRUBIN,TOTAL 0.7 MG/DL (0.2-1.0); BLOOD UREA NITROGEN 52 MG/DL (7-18); CALCIUM LEVEL 9.1 MG/DL (8.8-10.2); CARBON DIOXIDE LEVEL 28 MEQ/L (21-32); CHLORIDE LEVEL 103 MEQ/L (98-107); CREATININE FOR GFR 4.32 MG/DL (0.55-1.30); GLOMERULAR FILTRATION RATE 10.7 (>39); GLUCOSE, FASTING 65 MG/DL (70-100); MAGNESIUM LEVEL 2.5 MG/DL (1.8-2.4); POTASSIUM SERUM 3.8 MEQ/L (3.5-5.1); SODIUM LEVEL 141 MEQ/L (136-145)
[2017-11-12] MEDS: DIGOXIN 0.25 MG TAB PO ×2 (07:51→15:50)
[2017-11-12] MEDS: TIOTROPIUM INHALER/CAPSULE (SPIRIVA) INH (08:10)
[2017-11-12] MEDS: IPRATROPIUM 0.5MG/ALBUTEROL 2.5MG INH SOL UD 3ML (DUONEB)(J7620) NEB ×4 (08:10→20:00)
[2017-11-12] MEDS ORDERED: DIGOXIN 0.0625MG PER 1/2TABLET PO (09:00)
[2017-11-12] MEDS: ADVAIR HFA 115/21MCG INHALER INH ×3 (09:00→20:16)
[2017-11-12] MEDS: HEPARIN 1,000 UNITS/ML 10ML VIAL (FOR RADIOLOGY& DIALYSIS ONLY) IV (13:05)
[2017-11-12] MEDS: LIDOCAINE 1% SDV 5 ML VIAL SQ (13:05)
[2017-11-12] MEDS: MEROPENEM INJ 500 MG in APPROPRIATE DILUENT 1 EA IV (15:50)
[2017-11-12 20:01] LABS: BEDSIDE GLUCOSE 77 MG/DL (83-110)
[2017-11-12] MEDS: AMITRIPTYLINE 25 MG TAB PO (20:47)
[2017-11-13 00:10] LABS: BODY FLUID CULTURE Not Indicated (.); LEGIONELLA ANTIGEN URINE Negative (Negative); ORGANISM ID Not indicated. (.); SPECIMEN SOURCE Urine (.); URINE STREP PNEUMONIAE ANTIGEN Negative (Negative)
[2017-11-13] MEDS: FAMOTIDINE 20 MG TAB PO ×2 (06:31→21:40)
[2017-11-13] MEDS: VENLAFAXINE **XR** 75MG CAPSULE PO (06:31)
[2017-11-13] MEDS: LEVOTHYROXINE 50MCG TABLET (0.05MG) PO (06:31)
[2017-11-13] MEDS: (RENVELA) SEVELAMER **CARBONate** 800 MG TAB PO ×2 (06:31→17:05)
[2017-11-13] MEDS: TRIFLURIDINE 1% OPHTH SOLN 7.5 ML OD ×5 (06:32→21:40)
[2017-11-13] MEDS: ATENOLOL 50 MG TAB PO ×2 (06:32→21:40)
[2017-11-13] MEDS: APIXABAN 5 MG TAB (ELIQUIS) PO (06:32)
[2017-11-13] MEDS: LACTOBACILLUS ACIDOPHILUS CAP (BACID) PO ×3 (06:32→17:05)
[2017-11-13] MEDS: TIOTROPIUM INHALER/CAPSULE (SPIRIVA) INH (07:40)
[2017-11-13] MEDS: IPRATROPIUM 0.5MG/ALBUTEROL 2.5MG INH SOL UD 3ML (DUONEB)(J7620) NEB ×4 (07:40→20:00)
[2017-11-13] MEDS: ADVAIR HFA 115/21MCG INHALER INH ×2 (07:40→23:24)
[2017-11-13 08:07] LABS: BASO % 0.3 % (0.0-1.0); EOS # 0.4 10^3/uL (0.0-0.50); EOS % 4.1 % (0.0-3.0); HEMATOCRIT 34.6 % (36.0-47.0); HEMOGLOBIN 11.3 g/dl (12.0-15.5); IMMATURE GRANULOCYTE % 0.8 % (0-3.0); LYMPH % 10.1 % (24.0-44.0); MEAN CORPUSCULAR HEMOGLOBIN 34.5 pg (27.0-33.0); MEAN CORPUSCULAR HGB CONC 32.7 g/dl (32.0-36.5); MEAN CORPUSCULAR VOLUME 105.5 fl (80.0-96.0); MONO # 1.3 10^3/uL (0.0-0.8); MONO % 13.7 % (0.0-5.0); NEUTROPHILS # 6.8 10^3/uL (1.8-7.7); PLATELET COUNT, AUTOMATED 278 10^3/uL (150-450); RED BLOOD COUNT 3.28 10^6/uL (4.00-5.40); RED CELL DISTRIBUTION WIDTH 13.9 % (11.5-14.5); WHITE BLOOD COUNT 9.5 10^3/uL (4.0-10.0)
[2017-11-13 08:35] LABS: ALBUMIN 2.5 GM/DL (3.2-5.2); ALBUMIN/GLOBULIN RATIO 0.78 (1.00-1.93); ALKALINE PHOSPHATASE 59 U/L (45-117); ALT/SGPT 30 U/L (12-78); ANION GAP 10 MEQ/L (8-16); AST/SGOT 19 U/L (7-37); BILIRUBIN,TOTAL 0.8 MG/DL (0.2-1.0); BLOOD UREA NITROGEN 28 MG/DL (7-18); CALCIUM LEVEL 8.8 MG/DL (8.8-10.2); CARBON DIOXIDE LEVEL 30 MEQ/L (21-32); CHLORIDE LEVEL 103 MEQ/L (98-107); CREATININE FOR GFR 3.05 MG/DL (0.55-1.30); GLUCOSE, FASTING 102 MG/DL (70-100); MAGNESIUM LEVEL 2.2 MG/DL (1.8-2.4); POTASSIUM SERUM 4.2 MEQ/L (3.5-5.1); SODIUM LEVEL 143 MEQ/L (136-145); TOTAL PROTEIN 5.7 GM/DL (6.4-8.2)
[2017-11-13] MEDS: LevoFLOXacin 750 MG TABLET PO (14:40)
[2017-11-13] MEDS ORDERED: SENOKOT S TAB PO (15:00)
[2017-11-13] MEDS ORDERED: MOM 30ML SUSPENSION UDC PO (15:00)
[2017-11-13] MEDS: SENOKOT S TAB PO (17:05)
[2017-11-13] MEDS: AMITRIPTYLINE 25 MG TAB PO (21:00)
[2017-11-14] MEDS: ACETAMINOPHEN TAB 650MG DOSE (2X325MG) PO (00:29)
[2017-11-14] MEDS: LEVOTHYROXINE 50MCG TABLET (0.05MG) PO (06:17)
[2017-11-14] MEDS: TRIFLURIDINE 1% OPHTH SOLN 7.5 ML OD ×5 (06:17→20:55)
[2017-11-14] MEDS: FAMOTIDINE 20 MG TAB PO ×2 (06:17→20:55)
[2017-11-14] MEDS: LACTOBACILLUS ACIDOPHILUS CAP (BACID) PO ×3 (06:17→17:06)
[2017-11-14] MEDS: (RENVELA) SEVELAMER **CARBONate** 800 MG TAB PO ×2 (06:18→17:06)
[2017-11-14] MEDS: VENLAFAXINE **XR** 75MG CAPSULE PO (06:18)
[2017-11-14] MEDS: APIXABAN 5 MG TAB (ELIQUIS) PO (06:19)
[2017-11-14] MEDS: ATENOLOL 50 MG TAB PO ×2 (06:19→20:55)
[2017-11-14 07:26] LABS: BASO # 0.1 10^3/uL (0.0-0.2); BASO % 0.8 % (0.0-1.0); EOS # 0.4 10^3/uL (0.0-0.50); EOS % 4.7 % (0.0-3.0); HEMATOCRIT 35.5 % (36.0-47.0); HEMOGLOBIN 11.4 g/dl (12.0-15.5); IMMATURE GRANULOCYTE % 2.4 % (0-3.0); MEAN CORPUSCULAR HEMOGLOBIN 34.5 pg (27.0-33.0); MEAN CORPUSCULAR HGB CONC 32.1 g/dl (32.0-36.5); MEAN CORPUSCULAR VOLUME 107.6 fl (80.0-96.0); MONO # 1.3 10^3/uL (0.0-0.8); MONO % 14.9 % (0.0-5.0); NEUTROPHILS # 5.8 10^3/uL (1.8-7.7); NEUTROPHILS % 66.2 % (36.0-66.0); PLATELET COUNT, AUTOMATED 280 10^3/uL (150-450); RED CELL DISTRIBUTION WIDTH 13.8 % (11.5-14.5); WHITE BLOOD COUNT 8.8 10^3/uL (4.0-10.0)
[2017-11-14 07:43] LABS: ALBUMIN 2.3 GM/DL (3.2-5.2); ALBUMIN/GLOBULIN RATIO 0.59 (1.00-1.93); ALKALINE PHOSPHATASE 59 U/L (45-117); ALT/SGPT 25 U/L (12-78); ANION GAP 9 MEQ/L (8-16); AST/SGOT 13 U/L (7-37); BILIRUBIN,TOTAL 0.6 MG/DL (0.2-1.0); BLOOD UREA NITROGEN 43 MG/DL (7-18); CALCIUM LEVEL 8.8 MG/DL (8.8-10.2); CARBON DIOXIDE LEVEL 29 MEQ/L (21-32); CHLORIDE LEVEL 103 MEQ/L (98-107); CREATININE FOR GFR 3.58 MG/DL (0.55-1.30); DIGOXIN LEVEL 1.4 NG/ML (0.5-2.0); GLOMERULAR FILTRATION RATE 13.3 (>39); GLUCOSE, FASTING 83 MG/DL (70-100); MAGNESIUM LEVEL 2.4 MG/DL (1.8-2.4); POTASSIUM SERUM 4.1 MEQ/L (3.5-5.1); SODIUM LEVEL 141 MEQ/L (136-145); TOTAL PROTEIN 6.2 GM/DL (6.4-8.2)
[2017-11-14] MEDS: ADVAIR HFA 115/21MCG INHALER INH (07:44)
[2017-11-14] MEDS: TIOTROPIUM INHALER/CAPSULE (SPIRIVA) INH (07:45)
[2017-11-14] MEDS: IPRATROPIUM 0.5MG/ALBUTEROL 2.5MG INH SOL UD 3ML (DUONEB)(J7620) NEB ×4 (07:45→20:00)
[2017-11-14] MEDS: DIGOXIN 0.0625MG PER 1/2TABLET PO (09:00)
[2017-11-14] MEDS: LIDOCAINE 1% SDV 5 ML VIAL SQ (11:15)
[2017-11-14] MEDS: HEPARIN 1,000 UNITS/ML 10ML VIAL (FOR RADIOLOGY& DIALYSIS ONLY) IV (11:15)
[2017-11-14] MEDS: AMITRIPTYLINE 25 MG TAB PO (20:55)
[2017-11-15] MEDS: LEVOTHYROXINE 50MCG TABLET (0.05MG) PO (05:56)
[2017-11-15] MEDS: TRIFLURIDINE 1% OPHTH SOLN 7.5 ML OD ×2 (06:00→09:04)
[2017-11-15 06:23] LABS: BASO # 0.1 10^3/uL (0.0-0.2); EOS # 0.3 10^3/uL (0.0-0.50); HEMATOCRIT 37.9 % (36.0-47.0); HEMOGLOBIN 12.4 g/dl (12.0-15.5); IMMATURE GRANULOCYTE % 2.8 % (0-3.0); LYMPH # 1.4 10^3/uL (1.5-4.5); LYMPH % 14.9 % (24.0-44.0); MEAN CORPUSCULAR HEMOGLOBIN 34.4 pg (27.0-33.0); MEAN CORPUSCULAR HGB CONC 32.7 g/dl (32.0-36.5); MEAN CORPUSCULAR VOLUME 105.3 fl (80.0-96.0); MONO # 1.3 10^3/uL (0.0-0.8); MONO % 13.9 % (0.0-5.0); NEUTROPHILS # 5.9 10^3/uL (1.8-7.7); NEUTROPHILS % 64.4 % (36.0-66.0); PLATELET COUNT, AUTOMATED 323 10^3/uL (150-450); RED CELL DISTRIBUTION WIDTH 13.6 % (11.5-14.5); WHITE BLOOD COUNT 9.1 10^3/uL (4.0-10.0)
[2017-11-15 06:41] LABS: ALBUMIN 2.4 GM/DL (3.2-5.2); ALBUMIN/GLOBULIN RATIO 0.57 (1.00-1.93); ALKALINE PHOSPHATASE 63 U/L (45-117); ALT/SGPT 23 U/L (12-78); ANION GAP 10 MEQ/L (8-16); AST/SGOT 14 U/L (7-37); BILIRUBIN,TOTAL 0.6 MG/DL (0.2-1.0); BLOOD UREA NITROGEN 28 MG/DL (7-18); CALCIUM LEVEL 9.1 MG/DL (8.8-10.2); CARBON DIOXIDE LEVEL 28 MEQ/L (21-32); CHLORIDE LEVEL 101 MEQ/L (98-107); CREATININE FOR GFR 3.15 MG/DL (0.55-1.30); GLOMERULAR FILTRATION RATE 15.4 (>39); GLUCOSE, FASTING 83 MG/DL (70-100); MAGNESIUM LEVEL 2.1 MG/DL (1.8-2.4); SODIUM LEVEL 139 MEQ/L (136-145); TOTAL PROTEIN 6.6 GM/DL (6.4-8.2)
[2017-11-15] MEDS: IPRATROPIUM 0.5MG/ALBUTEROL 2.5MG INH SOL UD 3ML (DUONEB)(J7620) NEB ×4 (07:36→20:00)
[2017-11-15] MEDS: TIOTROPIUM INHALER/CAPSULE (SPIRIVA) INH (07:36)
[2017-11-15] MEDS: ADVAIR HFA 115/21MCG INHALER INH ×2 (07:36→20:06)
[2017-11-15] MEDS: (RENVELA) SEVELAMER **CARBONate** 800 MG TAB PO ×2 (09:03→17:20)
[2017-11-15] MEDS: FAMOTIDINE 20 MG TAB PO ×2 (09:03→21:13)
[2017-11-15] MEDS: APIXABAN 5 MG TAB (ELIQUIS) PO (09:03)
[2017-11-15] MEDS: VENLAFAXINE **XR** 75MG CAPSULE PO (09:03)
[2017-11-15] MEDS: LACTOBACILLUS ACIDOPHILUS CAP (BACID) PO ×3 (09:03→17:20)
[2017-11-15] MEDS: ATENOLOL 50 MG TAB PO ×2 (09:04→21:16)
[2017-11-15] MEDS: LevoFLOXacin 500 MG TABLET PO (17:20)
[2017-11-15] MEDS: AMITRIPTYLINE 25 MG TAB PO (21:13)
[2017-11-16] MEDS: LEVOTHYROXINE 50MCG TABLET (0.05MG) PO (05:53)
[2017-11-16] MEDS: TIOTROPIUM INHALER/CAPSULE (SPIRIVA) INH (07:56)
[2017-11-16] MEDS: ADVAIR HFA 115/21MCG INHALER INH ×2 (07:56→19:53)
[2017-11-16] MEDS: IPRATROPIUM 0.5MG/ALBUTEROL 2.5MG INH SOL UD 3ML (DUONEB)(J7620) NEB ×4 (08:00→20:00)
[2017-11-16 08:10] LABS: BASO # 0.1 10^3/uL (0.0-0.2); EOS # 0.3 10^3/uL (0.0-0.50); EOS % 3.2 % (0.0-3.0); HEMATOCRIT 38.4 % (36.0-47.0); HEMOGLOBIN 12.5 g/dl (12.0-15.5); IMMATURE GRANULOCYTE % 4.1 % (0-3.0); LYMPH # 1.3 10^3/uL (1.5-4.5); LYMPH % 13.3 % (24.0-44.0); MEAN CORPUSCULAR HEMOGLOBIN 34.3 pg (27.0-33.0); MEAN CORPUSCULAR HGB CONC 32.6 g/dl (32.0-36.5); MEAN CORPUSCULAR VOLUME 105.5 fl (80.0-96.0); NEUTROPHILS # 6.3 10^3/uL (1.8-7.7); NEUTROPHILS % 67.4 % (36.0-66.0); PLATELET COUNT, AUTOMATED 336 10^3/uL (150-450); RED BLOOD COUNT 3.64 10^6/uL (4.00-5.40); RED CELL DISTRIBUTION WIDTH 13.7 % (11.5-14.5); WHITE BLOOD COUNT 9.4 10^3/uL (4.0-10.0)
[2017-11-16 08:35] LABS: ALBUMIN 2.5 GM/DL (3.2-5.2); ALBUMIN/GLOBULIN RATIO 0.68 (1.00-1.93); ALKALINE PHOSPHATASE 71 U/L (45-117); ALT/SGPT 21 U/L (12-78); ANION GAP 10 MEQ/L (8-16); AST/SGOT 16 U/L (7-37); BILIRUBIN,TOTAL 0.6 MG/DL (0.2-1.0); BLOOD UREA NITROGEN 45 MG/DL (7-18); CALCIUM LEVEL 8.8 MG/DL (8.8-10.2); CARBON DIOXIDE LEVEL 27 MEQ/L (21-32); CHLORIDE LEVEL 100 MEQ/L (98-107); CREATININE FOR GFR 4.36 MG/DL (0.55-1.30); GLOMERULAR FILTRATION RATE 10.6 (>39); GLUCOSE, FASTING 116 MG/DL (70-100); MAGNESIUM LEVEL 2.1 MG/DL (1.8-2.4); POTASSIUM SERUM 4.2 MEQ/L (3.5-5.1); SODIUM LEVEL 137 MEQ/L (136-145); TOTAL PROTEIN 6.2 GM/DL (6.4-8.2)
[2017-11-16] MEDS: (RENVELA) SEVELAMER **CARBONate** 800 MG TAB PO ×2 (09:00→16:12)
[2017-11-16] MEDS: APIXABAN 5 MG TAB (ELIQUIS) PO (09:00)
[2017-11-16] MEDS: LACTOBACILLUS ACIDOPHILUS CAP (BACID) PO ×3 (09:00→18:10)
[2017-11-16] MEDS: FAMOTIDINE 20 MG TAB PO ×2 (09:00→20:31)
[2017-11-16] MEDS: VENLAFAXINE **XR** 75MG CAPSULE PO (09:00)
[2017-11-16] MEDS: ATENOLOL 50 MG TAB PO ×2 (09:03→20:32)
[2017-11-16] MEDS: DIGOXIN 0.0625MG PER 1/2TABLET PO (09:06)
[2017-11-16] MEDS: ACETAMINOPHEN TAB 650MG DOSE (2X325MG) PO (18:11)
[2017-11-16] MEDS: AMITRIPTYLINE 25 MG TAB PO (20:32)
[2017-11-17 06:21] LABS: BASO # 0.1 10^3/uL (0.0-0.2); BASO % 0.8 % (0.0-1.0); EOS # 0.3 10^3/uL (0.0-0.50); EOS % 3.3 % (0.0-3.0); HEMATOCRIT 35.8 % (36.0-47.0); HEMOGLOBIN 12.2 g/dl (12.0-15.5); IMMATURE GRANULOCYTE % 4.5 % (0-3.0); LYMPH # 1.4 10^3/uL (1.5-4.5); LYMPH % 13.8 % (24.0-44.0); MEAN CORPUSCULAR HEMOGLOBIN 34.6 pg (27.0-33.0); MEAN CORPUSCULAR HGB CONC 34.1 g/dl (32.0-36.5); MEAN CORPUSCULAR VOLUME 101.4 fl (80.0-96.0); MONO # 1.2 10^3/uL (0.0-0.8); MONO % 11.2 % (0.0-5.0); NEUTROPHILS # 6.8 10^3/uL (1.8-7.7); NEUTROPHILS % 66.4 % (36.0-66.0); PLATELET COUNT, AUTOMATED 340 10^3/uL (150-450); RED BLOOD COUNT 3.53 10^6/uL (4.00-5.40); RED CELL DISTRIBUTION WIDTH 13.4 % (11.5-14.5); WHITE BLOOD COUNT 10.2 10^3/uL (4.0-10.0)
[2017-11-17] MEDS: LACTOBACILLUS ACIDOPHILUS CAP (BACID) PO ×3 (06:22→17:01)
[2017-11-17] MEDS: LEVOTHYROXINE 50MCG TABLET (0.05MG) PO (06:22)
[2017-11-17] MEDS: ATENOLOL 50 MG TAB PO ×2 (06:23→20:33)
[2017-11-17] MEDS: VENLAFAXINE **XR** 75MG CAPSULE PO (06:23)
[2017-11-17] MEDS: FAMOTIDINE 20 MG TAB PO ×2 (06:23→20:34)
[2017-11-17] MEDS: APIXABAN 5 MG TAB (ELIQUIS) PO (06:23)
[2017-11-17 06:58] LABS: ALBUMIN 2.4 GM/DL (3.2-5.2); ALBUMIN/GLOBULIN RATIO 0.59 (1.00-1.93); ALKALINE PHOSPHATASE 66 U/L (45-117); ALT/SGPT 18 U/L (12-78); ANION GAP 9 MEQ/L (8-16); AST/SGOT 14 U/L (7-37); BILIRUBIN,TOTAL 0.6 MG/DL (0.2-1.0); BLOOD UREA NITROGEN 62 MG/DL (7-18); CALCIUM LEVEL 9.1 MG/DL (8.8-10.2); CARBON DIOXIDE LEVEL 26 MEQ/L (21-32); CHLORIDE LEVEL 98 MEQ/L (98-107); CREATININE FOR GFR 5.09 MG/DL (0.55-1.30); GLOMERULAR FILTRATION RATE 8.9 (>39); GLUCOSE, FASTING 93 MG/DL (70-100); MAGNESIUM LEVEL 1.9 MG/DL (1.8-2.4); SODIUM LEVEL 133 MEQ/L (136-145); TOTAL PROTEIN 6.5 GM/DL (6.4-8.2)
[2017-11-17] MEDS: ADVAIR HFA 115/21MCG INHALER INH ×2 (07:31→20:00)
[2017-11-17] MEDS: TIOTROPIUM INHALER/CAPSULE (SPIRIVA) INH (07:31)
[2017-11-17] MEDS: IPRATROPIUM 0.5MG/ALBUTEROL 2.5MG INH SOL UD 3ML (DUONEB)(J7620) NEB ×4 (07:31→20:00)
[2017-11-17] MEDS: (RENVELA) SEVELAMER **CARBONate** 800 MG TAB PO ×2 (09:02→17:01)
[2017-11-17 09:04] LABS: PHOSPHORUS LEVEL 4.1 MG/DL (2.5-4.9)
[2017-11-17] MEDS: HEPARIN 1,000 UNITS/ML 10ML VIAL (FOR RADIOLOGY& DIALYSIS ONLY) IV (11:06)
[2017-11-17] MEDS: LIDOCAINE 1% SDV 5 ML VIAL SQ (11:06)
[2017-11-17] MEDS: LevoFLOXacin 500 MG TABLET PO (17:01)
[2017-11-17] MEDS: AMITRIPTYLINE 25 MG TAB PO (20:33)
[2017-11-17] MEDS: ACETAMINOPHEN TAB 650MG DOSE (2X325MG) PO (20:34)
[2017-11-18] MEDS: ACETAMINOPHEN TAB 650MG DOSE (2X325MG) PO ×2 (04:26→19:51)
[2017-11-18] MEDS: LEVOTHYROXINE 50MCG TABLET (0.05MG) PO (05:35)
[2017-11-18 06:02] LABS: BASO # 0.1 10^3/uL (0.0-0.2); EOS # 0.2 10^3/uL (0.0-0.50); EOS % 2.2 % (0.0-3.0); HEMATOCRIT 36.4 % (36.0-47.0); HEMOGLOBIN 12.3 g/dl (12.0-15.5); IMMATURE GRANULOCYTE % 4.4 % (0-3.0); LYMPH # 1.2 10^3/uL (1.5-4.5); LYMPH % 14.5 % (24.0-44.0); MEAN CORPUSCULAR HEMOGLOBIN 34.8 pg (27.0-33.0); MEAN CORPUSCULAR HGB CONC 33.8 g/dl (32.0-36.5); MEAN CORPUSCULAR VOLUME 103.1 fl (80.0-96.0); MONO % 12.3 % (0.0-5.0); NEUTROPHILS # 5.4 10^3/uL (1.8-7.7); NEUTROPHILS % 65.6 % (36.0-66.0); PLATELET COUNT, AUTOMATED 320 10^3/uL (150-450); RED BLOOD COUNT 3.53 10^6/uL (4.00-5.40); RED CELL DISTRIBUTION WIDTH 13.7 % (11.5-14.5); WHITE BLOOD COUNT 8.2 10^3/uL (4.0-10.0)
[2017-11-18 06:18] LABS: ALBUMIN 2.5 GM/DL (3.2-5.2); ALBUMIN/GLOBULIN RATIO 0.63 (1.00-1.93); ALKALINE PHOSPHATASE 66 U/L (45-117); ALT/SGPT 18 U/L (12-78); ANION GAP 9 MEQ/L (8-16); AST/SGOT 16 U/L (7-37); BILIRUBIN,TOTAL 0.5 MG/DL (0.2-1.0); BLOOD UREA NITROGEN 26 MG/DL (7-18); CARBON DIOXIDE LEVEL 29 MEQ/L (21-32); CHLORIDE LEVEL 101 MEQ/L (98-107); CREATININE FOR GFR 3.38 MG/DL (0.55-1.30); GLOMERULAR FILTRATION RATE 14.2 (>39); GLUCOSE, FASTING 110 MG/DL (70-100); MAGNESIUM LEVEL 1.8 MG/DL (1.8-2.4); SODIUM LEVEL 139 MEQ/L (136-145); TOTAL PROTEIN 6.5 GM/DL (6.4-8.2)
[2017-11-18] MEDS: TIOTROPIUM INHALER/CAPSULE (SPIRIVA) INH (07:32)
[2017-11-18] MEDS: IPRATROPIUM 0.5MG/ALBUTEROL 2.5MG INH SOL UD 3ML (DUONEB)(J7620) NEB ×4 (07:33→20:00)
[2017-11-18] MEDS: ADVAIR HFA 115/21MCG INHALER INH ×2 (07:34→20:37)
[2017-11-18] MEDS: FAMOTIDINE 20 MG TAB PO ×2 (09:20→21:31)
[2017-11-18] MEDS: VENLAFAXINE **XR** 75MG CAPSULE PO (09:20)
[2017-11-18] MEDS: (RENVELA) SEVELAMER **CARBONate** 800 MG TAB PO ×2 (09:20→17:29)
[2017-11-18] MEDS: APIXABAN 5 MG TAB (ELIQUIS) PO (09:21)
[2017-11-18] MEDS: LACTOBACILLUS ACIDOPHILUS CAP (BACID) PO ×3 (09:21→17:29)
[2017-11-18] MEDS: DIGOXIN 0.0625MG PER 1/2TABLET PO (09:22)
[2017-11-18] MEDS: ATENOLOL 50 MG TAB PO ×2 (09:23→21:31)
[2017-11-18] MEDS: AMITRIPTYLINE 25 MG TAB PO (21:31)
[2017-11-19 06:11] LABS: BASO # 0.1 10^3/uL (0.0-0.2); BASO % 0.8 % (0.0-1.0); EOS # 0.3 10^3/uL (0.0-0.50); EOS % 2.5 % (0.0-3.0); HEMATOCRIT 35.9 % (36.0-47.0); IMMATURE GRANULOCYTE % 3.4 % (0-3.0); LYMPH # 1.4 10^3/uL (1.5-4.5); LYMPH % 14.1 % (24.0-44.0); MEAN CORPUSCULAR HEMOGLOBIN 34.8 pg (27.0-33.0); MEAN CORPUSCULAR HGB CONC 33.4 g/dl (32.0-36.5); MEAN CORPUSCULAR VOLUME 104.1 fl (80.0-96.0); MONO # 1.2 10^3/uL (0.0-0.8); MONO % 12.2 % (0.0-5.0); NEUTROPHILS # 6.6 10^3/uL (1.8-7.7); PLATELET COUNT, AUTOMATED 350 10^3/uL (150-450); RED BLOOD COUNT 3.45 10^6/uL (4.00-5.40); RED CELL DISTRIBUTION WIDTH 13.6 % (11.5-14.5); WHITE BLOOD COUNT 9.9 10^3/uL (4.0-10.0)
[2017-11-19] MEDS: ATENOLOL 50 MG TAB PO (06:18)
[2017-11-19] MEDS: VENLAFAXINE **XR** 75MG CAPSULE PO (06:23)
[2017-11-19] MEDS: LEVOTHYROXINE 50MCG TABLET (0.05MG) PO (06:23)
[2017-11-19] MEDS: APIXABAN 5 MG TAB (ELIQUIS) PO (06:23)
[2017-11-19] MEDS: FAMOTIDINE 20 MG TAB PO (06:23)
[2017-11-19 06:32] LABS: ALBUMIN 2.5 GM/DL (3.2-5.2); ALBUMIN/GLOBULIN RATIO 0.64 (1.00-1.93); ALKALINE PHOSPHATASE 70 U/L (45-117); ALT/SGPT 18 U/L (12-78); ANION GAP 11 MEQ/L (8-16); AST/SGOT 16 U/L (7-37); BILIRUBIN,TOTAL 0.5 MG/DL (0.2-1.0); BLOOD UREA NITROGEN 41 MG/DL (7-18); CALCIUM LEVEL 9.1 MG/DL (8.8-10.2); CARBON DIOXIDE LEVEL 28 MEQ/L (21-32); CHLORIDE LEVEL 98 MEQ/L (98-107); CREATININE FOR GFR 4.63 MG/DL (0.55-1.30); GLOMERULAR FILTRATION RATE 9.9 (>39); GLUCOSE, FASTING 83 MG/DL (70-100); MAGNESIUM LEVEL 1.9 MG/DL (1.8-2.4); POTASSIUM SERUM 4.2 MEQ/L (3.5-5.1); SODIUM LEVEL 137 MEQ/L (136-145); TOTAL PROTEIN 6.4 GM/DL (6.4-8.2)
[2017-11-19] MEDS: IPRATROPIUM 0.5MG/ALBUTEROL 2.5MG INH SOL UD 3ML (DUONEB)(J7620) NEB (07:56)
[2017-11-19] MEDS: TIOTROPIUM INHALER/CAPSULE (SPIRIVA) INH (07:56)
[2017-11-19] MEDS: ADVAIR HFA 115/21MCG INHALER INH (07:57)
[2017-11-19] MEDS: (RENVELA) SEVELAMER **CARBONate** 800 MG TAB PO (08:18)
[2017-11-19] MEDS: LACTOBACILLUS ACIDOPHILUS CAP (BACID) PO (08:18)
== END 2017-11-19 12:18 | DRG 308 ==
LOC: M MSPAV 11-09 17:15 → M ED 12:43 → M ED INP 15:36 → M PCU 18:47
PROC: 5A1D70Z Performance of Urinary Filtration, Intermittent, Less than 6 Hours Per Day (ICD-10-PCS; principal; 2017-11-10)
DX: I48.91 Unspecified atrial fibrillation (principal); J18.9 Pneumonia, unspecified organism; N18.6 End stage renal disease; G93.41 Metabolic encephalopathy; I13.2 Hypertensive heart and chronic kidney disease with heart failure and with stage 5 chronic kidney disease, or end stage renal disease; J44.9 Chronic obstructive pulmonary disease, unspecified; M79.7 Fibromyalgia; K21.9 Gastro-esophageal reflux disease without esophagitis; E03.9 Hypothyroidism, unspecified; B02.9 Zoster without complications; F32.9 Major depressive disorder, single episode, unspecified; Z79.899 Other long term (current) drug therapy; Z79.01 Long term (current) use of anticoagulants; Z88.8 Allergy status to other drugs, medicaments and biological substances; Z88.0 Allergy status to penicillin; Z91.040 Latex allergy status; Z88.1 Allergy status to other antibiotic agents; Z87.891 Personal history of nicotine dependence; Z91.013 Allergy to seafood; I50.9 Heart failure, unspecified; D63.1 Anemia in chronic kidney disease

== ENCOUNTER → 2017-11-26 | Outpatient (REF) ==
[2017-11-26 10:16] LABS: HEMATOCRIT 28.3 % (36.0-47.0); HEMOGLOBIN 9.1 g/dl (12.0-15.5); MEAN CORPUSCULAR HEMOGLOBIN 34.3 pg (27.0-33.0); MEAN CORPUSCULAR HGB CONC 32.2 g/dl (32.0-36.5); MEAN CORPUSCULAR VOLUME 106.8 fl (80.0-96.0); PLATELET COUNT, AUTOMATED 275 10^3/uL (150-450); RED BLOOD COUNT 2.65 10^6/uL (4.00-5.40); RED CELL DISTRIBUTION WIDTH 13.9 % (11.5-14.5); WHITE BLOOD COUNT 7.5 10^3/uL (4.0-10.0)
[2017-11-26 10:48] LABS: ANION GAP 7 MEQ/L (8-16); BLOOD UREA NITROGEN 25 MG/DL (7-18); CALCIUM LEVEL 8.8 MG/DL (8.8-10.2); CARBON DIOXIDE LEVEL 32 MEQ/L (21-32); CHLORIDE LEVEL 102 MEQ/L (98-107); CREATININE FOR GFR 2.33 MG/DL (0.55-1.30); GLOMERULAR FILTRATION RATE 21.8 (>39); GLUCOSE, FASTING 116 MG/DL (70-100); POTASSIUM SERUM 3.8 MEQ/L (3.5-5.1); SODIUM LEVEL 141 MEQ/L (136-145)
== END ==
DX: N18.6 End stage renal disease (principal); I48.91 Unspecified atrial fibrillation

== ENCOUNTER → 2017-12-03 | Outpatient (REF) ==
[2017-12-03 18:24] LABS: HEMATOCRIT 26.3 % (36.0-47.0); HEMOGLOBIN 8.3 g/dl (12.0-15.5); MEAN CORPUSCULAR HEMOGLOBIN 34.3 pg (27.0-33.0); MEAN CORPUSCULAR HGB CONC 31.6 g/dl (32.0-36.5); MEAN CORPUSCULAR VOLUME 108.7 fl (80.0-96.0); PLATELET COUNT, AUTOMATED 276 10^3/uL (150-450); RED BLOOD COUNT 2.42 10^6/uL (4.00-5.40); RED CELL DISTRIBUTION WIDTH 14.7 % (11.5-14.5); WHITE BLOOD COUNT 7.8 10^3/uL (4.0-10.0)
[2017-12-03 18:35] LABS: ANION GAP 13 MEQ/L (8-16); BLOOD UREA NITROGEN 26 MG/DL (7-18); CALCIUM LEVEL 9.4 MG/DL (8.8-10.2); CARBON DIOXIDE LEVEL 27 MEQ/L (21-32); CHLORIDE LEVEL 101 MEQ/L (98-107); CREATININE FOR GFR 2.27 MG/DL (0.55-1.30); GLOMERULAR FILTRATION RATE 22.5 (>39); GLUCOSE, FASTING 85 MG/DL (70-100); POTASSIUM SERUM 4.2 MEQ/L (3.5-5.1); SODIUM LEVEL 141 MEQ/L (136-145)
[2017-12-04 14:56] LABS: FOLATE 18.3 NG/ML (>5.4)
== END ==
DX: I51.7 Cardiomegaly (principal); J84.9 Interstitial pulmonary disease, unspecified; K44.9 Diaphragmatic hernia without obstruction or gangrene

== ENCOUNTER → 2017-12-04 | Outpatient (REF) ==
[2017-12-04 13:58] LABS: HEMATOCRIT 24.8 % (36.0-47.0); MEAN CORPUSCULAR HEMOGLOBIN 35.1 pg (27.0-33.0); MEAN CORPUSCULAR HGB CONC 32.3 g/dl (32.0-36.5); MEAN CORPUSCULAR VOLUME 108.8 fl (80.0-96.0); PLATELET COUNT, AUTOMATED 261 10^3/uL (150-450); RED BLOOD COUNT 2.28 10^6/uL (4.00-5.40); RED CELL DISTRIBUTION WIDTH 14.9 % (11.5-14.5)
[2017-12-04 14:26] LABS: IRON (FE) 52 UG/DL (50-170); PERCENT SATURATION 24.8 % (13.2-45.0); TOTAL IRON BINDING CAPACITY 210 UG/DL (250-450)
== END ==
DX: R09.02 Hypoxemia (principal)

== ENCOUNTER 2017-12-05 09:58 | Outpatient (REF) ==
[2017-12-05 10:14] LABS: IMMEDIATE SPIN CROSSMATCH 1 1
[2017-12-05] MEDS: diphenhydrAMINE 25 MG CAP PO (11:19)
[2017-12-05] MEDS: ACETAMINOPHEN TAB 650MG DOSE (2X325MG) PO (11:20)
== END 2017-12-05 13:05 ==
LOC: M INFU 09:58
DX: D64.9 Anemia, unspecified (principal)

== ENCOUNTER → 2017-12-05 | Outpatient (REF) | DX: D64.9 Anemia, unspecified (principal) ==

== ENCOUNTER → 2017-12-06 | Outpatient (REF) ==
[2017-12-06 11:04] LABS: HEMATOCRIT 29.4 % (36.0-47.0); HEMOGLOBIN 9.5 g/dl (12.0-15.5); MEAN CORPUSCULAR HEMOGLOBIN 33.2 pg (27.0-33.0); MEAN CORPUSCULAR HGB CONC 32.3 g/dl (32.0-36.5); MEAN CORPUSCULAR VOLUME 102.8 fl (80.0-96.0); PLATELET COUNT, AUTOMATED 248 10^3/uL (150-450); RED BLOOD COUNT 2.86 10^6/uL (4.00-5.40); RED CELL DISTRIBUTION WIDTH 19.8 % (11.5-14.5); WHITE BLOOD COUNT 14.2 10^3/uL (4.0-10.0)
== END ==
DX: D64.9 Anemia, unspecified (principal)

== ENCOUNTER → 2017-12-08 | Outpatient (REF) ==
[2017-12-08 14:11] LABS: HEMOGLOBIN 9.8 g/dl (12.0-15.5); MEAN CORPUSCULAR HGB CONC 32.7 g/dl (32.0-36.5); MEAN CORPUSCULAR VOLUME 104.2 fl (80.0-96.0); PLATELET COUNT, AUTOMATED 239 10^3/uL (150-450); RED BLOOD COUNT 2.88 10^6/uL (4.00-5.40); RED CELL DISTRIBUTION WIDTH 18.4 % (11.5-14.5); WHITE BLOOD COUNT 7.7 10^3/uL (4.0-10.0)
[2017-12-08 14:41] LABS: ANION GAP 14 MEQ/L (8-16); BLOOD UREA NITROGEN 39 MG/DL (7-18); CALCIUM LEVEL 8.8 MG/DL (8.8-10.2); CARBON DIOXIDE LEVEL 23 MEQ/L (21-32); CHLORIDE LEVEL 100 MEQ/L (98-107); CREATININE FOR GFR 3.56 MG/DL (0.55-1.30); GLOMERULAR FILTRATION RATE 13.4 (>39); GLUCOSE, FASTING 122 MG/DL (70-100); SODIUM LEVEL 137 MEQ/L (136-145)
== END ==
DX: D72.829 Elevated white blood cell count, unspecified (principal); R09.02 Hypoxemia; R05 Cough; I51.7 Cardiomegaly; R91.8 Other nonspecific abnormal finding of lung field

== ENCOUNTER → 2017-12-10 | Outpatient (REF) ==
[2017-12-10 17:50] LABS: BASO # 0.1 10^3/uL (0.0-0.2); BASO % 0.8 % (0.0-1.0); EOS # 0.3 10^3/uL (0.0-0.50); EOS % 5.2 % (0.0-3.0); HEMATOCRIT 30.9 % (36.0-47.0); HEMOGLOBIN 10.1 g/dl (12.0-15.5); IMMATURE GRANULOCYTE % 0.9 % (0-3.0); LYMPH # 1.2 10^3/uL (1.5-4.5); LYMPH % 19.1 % (24.0-44.0); MEAN CORPUSCULAR HEMOGLOBIN 34.9 pg (27.0-33.0); MEAN CORPUSCULAR HGB CONC 32.7 g/dl (32.0-36.5); MEAN CORPUSCULAR VOLUME 106.9 fl (80.0-96.0); MONO # 0.9 10^3/uL (0.0-0.8); MONO % 14.1 % (0.0-5.0); NEUTROPHILS # 3.8 10^3/uL (1.8-7.7); NEUTROPHILS % 59.9 % (36.0-66.0); PLATELET COUNT, AUTOMATED 234 10^3/uL (150-450); RED BLOOD COUNT 2.89 10^6/uL (4.00-5.40); WHITE BLOOD COUNT 6.4 10^3/uL (4.0-10.0)
[2017-12-10 18:52] LABS: ALBUMIN/GLOBULIN RATIO 0.86 (1.00-1.93); ALKALINE PHOSPHATASE 101 U/L (45-117); ALT/SGPT 30 U/L (12-78); ANION GAP 14 MEQ/L (8-16); AST/SGOT 22 U/L (7-37); BILIRUBIN,TOTAL 0.9 MG/DL (0.2-1.0); BLOOD UREA NITROGEN 33 MG/DL (7-18); CALCIUM LEVEL 8.9 MG/DL (8.8-10.2); CARBON DIOXIDE LEVEL 25 MEQ/L (21-32); CHLORIDE LEVEL 102 MEQ/L (98-107); CREATININE FOR GFR 2.75 MG/DL (0.55-1.30); DIGOXIN LEVEL 0.8 NG/ML (0.5-2.0); GLUCOSE, FASTING 111 MG/DL (70-100); POTASSIUM SERUM 3.5 MEQ/L (3.5-5.1); SODIUM LEVEL 141 MEQ/L (136-145); TOTAL PROTEIN 6.5 GM/DL (6.4-8.2)
[2017-12-10 22:35] LABS: APPEARANCE, URINE CLOUDY (CLEAR); BACTERIA, URINE AUTO 1+ (NEGATIVE); BILIRUBIN, URINE AUTO NEGATIVE (NEGATIVE); BLOOD, URINE BLOOD 1+ (NEGATIVE); COLOR, URINE AMBER (YELLOW); GLUCOSE, URINE (UA) AUTO NEGATIVE (NEGATIVE); KETONE, URINE AUTO NEGATIVE (NEGATIVE); LEUKOCYTE ESTERASE, URINE AUTO 2+ (NEGATIVE); MUCUS, URINE SMALL (NEGATIVE); NITRITE, URINE AUTO NEGATIVE (NEGATIVE); PROTEIN, URINE AUTO 1+ mg/dL (NEGATIVE); RBC, URINE AUTO 6 /HPF (0-3); SPECIFIC GRAVITY URINE AUTO 1.015 (1.002-1.035); SQUAMOUS EPITHELIAL CELL UR AU 8 /HPF (0-6); UROBILINOGEN, URINE AUTO 0.2 mg/dL (0.0-2.0); WBC, URINE AUTO 10 /HPF (0-3)
== END ==
DX: R41.82 Altered mental status, unspecified (principal)

== ENCOUNTER → 2017-12-11 | Outpatient (CLI) | payer MEDICARE, BC, OTHER | LOC: M RAD 12:20 | DX: S00.83XA Contusion of other part of head, initial encounter (principal); W19.XXXA Unspecified fall, initial encounter | CPT/HCPCS: 70450 ==

== ENCOUNTER 2017-12-13 15:06 | Emergency (ER) | payer MEDICARE, BC, OTHER ==
[2017-12-13 15:59] LABS: HEMATOCRIT 31.4 % (36.0-47.0); MEAN CORPUSCULAR HEMOGLOBIN 34.2 pg (27.0-33.0); MEAN CORPUSCULAR HGB CONC 31.8 g/dl (32.0-36.5); MEAN CORPUSCULAR VOLUME 107.5 fl (80.0-96.0); PLATELET COUNT, AUTOMATED 243 10^3/uL (150-450); RED BLOOD COUNT 2.92 10^6/uL (4.00-5.40); RED CELL DISTRIBUTION WIDTH 19.1 % (11.5-14.5); WHITE BLOOD COUNT 6.5 10^3/uL (4.0-10.0)
[2017-12-13 16:14] LABS: ANION GAP 9 MEQ/L (8-16); BLOOD UREA NITROGEN 18 MG/DL (7-18); CALCIUM LEVEL 8.7 MG/DL (8.8-10.2); CARBON DIOXIDE LEVEL 27 MEQ/L (21-32); CHLORIDE LEVEL 104 MEQ/L (98-107); CREATININE FOR GFR 1.85 MG/DL (0.55-1.30); GLOMERULAR FILTRATION RATE 28.4 (>39); GLUCOSE, FASTING 105 MG/DL (70-100); POTASSIUM SERUM 3.1 MEQ/L (3.5-5.1); SODIUM LEVEL 140 MEQ/L (136-145)
[2017-12-13 16:36] LABS: PROTHROMBIN TIME 15.4 SECONDS (12.1-14.4)
== END 2017-12-13 17:12 | disposition home or self-care (01) ==
LOC: M ED 15:06
DX: R41.82 Altered mental status, unspecified (principal); I48.91 Unspecified atrial fibrillation; R94.31 Abnormal electrocardiogram [ECG] [EKG]; Z79.899 Other long term (current) drug therapy; Z88.8 Allergy status to other drugs, medicaments and biological substances; Z88.0 Allergy status to penicillin; Z88.1 Allergy status to other antibiotic agents; Z91.040 Latex allergy status; Z91.018 Allergy to other foods
CPT/HCPCS: 70450

== ENCOUNTER → 2017-12-16 | Outpatient (REF) ==
[2017-12-16 10:24] LABS: HEMATOCRIT 29.8 % (36.0-47.0); HEMOGLOBIN 9.5 g/dl (12.0-15.5); MEAN CORPUSCULAR HEMOGLOBIN 34.2 pg (27.0-33.0); MEAN CORPUSCULAR HGB CONC 31.9 g/dl (32.0-36.5); MEAN CORPUSCULAR VOLUME 107.2 fl (80.0-96.0); PLATELET COUNT, AUTOMATED 279 10^3/uL (150-450); RED BLOOD COUNT 2.78 10^6/uL (4.00-5.40); RED CELL DISTRIBUTION WIDTH 18.5 % (11.5-14.5); WHITE BLOOD COUNT 7.4 10^3/uL (4.0-10.0)
== END ==
DX: D64.9 Anemia, unspecified (principal)

== ENCOUNTER → 2017-12-23 | Outpatient (REF) ==
[2017-12-23 10:31] LABS: HEMATOCRIT 30.6 % (36.0-47.0); HEMOGLOBIN 9.6 g/dl (12.0-15.5); MEAN CORPUSCULAR HEMOGLOBIN 34.5 pg (27.0-33.0); MEAN CORPUSCULAR HGB CONC 31.4 g/dl (32.0-36.5); MEAN CORPUSCULAR VOLUME 110.1 fl (80.0-96.0); PLATELET COUNT, AUTOMATED 287 10^3/uL (150-450); RED BLOOD COUNT 2.78 10^6/uL (4.00-5.40); RED CELL DISTRIBUTION WIDTH 17.4 % (11.5-14.5); WHITE BLOOD COUNT 6.8 10^3/uL (4.0-10.0)
== END ==
DX: D64.9 Anemia, unspecified (principal)

== ENCOUNTER → 2017-12-30 | Outpatient (REF) | payer MEDICARE, BC, OTHER | DX: D64.9 Anemia, unspecified (principal) ==